=== PATIENT | male | born 1935 | race Caucasian/White ===

== ENCOUNTER → 2017-03-26 | Outpatient (CLI) | payer OTHER, MEDICARE ==
[~2017-03-26] MED LIST: CHOL100027 PO; GABA-112 PO; HYDR12.55 PO; POTA1080 PO; TAMS0.4C38 PO
[2017-03-26 09:37] LABS: BASO % 1.4 %; BASO ABS # 0.07 K/uL (0-0.2); COMPLETE YES; EOS % 5.4 %; IG% 0.2 %; LYMPH % 29.3 %; LYMPH ABS # 1.51 K/uL (1.2-3.4); MEAN CELL VOLUME 87.6 fL (80-100); MEAN CORPUSCULAR HEMOGLOBIN 28.5 pg (25-34); MEAN CORPUSCULAR HGB CONC 32.6 g/dl (32-36); MEAN PLATELET VOLUME 10.3 fL (7.4-10.4); MONO % 8.7 %; PLATELET COUNT 217 K/uL (130-400); RED BLOOD COUNT 4.91 M/uL (4.7-6.1); WHITE BLOOD COUNT 5.15 K/uL (4.8-10.8)
[2017-03-26 10:08] LABS: ALT/SGPT 19 U/L (12-78); BLOOD UREA NITROGEN 24 mg/dl (7-18); CARBON DIOXIDE 31 mmol/L (21-32); CHLORIDE 105 mmol/L (98-107); CHOLESTEROL 151 mg/dl (0-200); GLUCOSE 109 mg/dl (70-99); POTASSIUM 3.5 mmol/L (3.5-5.1); SODIUM 141 mmol/L (136-145); TRIGLYCERIDES 81 mg/dl (0-150); VERY LOW DENSITY LIPOPROT CALC 16 mg/dl
[2017-03-26 10:13] LABS: ALB/GLOB RATIO 0.8 (0.9-2); ALKALINE PHOSPHATASE 65 U/L (45-117); AST/SGOT 20 U/L (15-37); CHOLESTEROL/HDL RATIO 3.4; HDL CHOLESTEROL 44 mg/dl; LDL CHOLESTEROL CALCULATED 91 mg/dl
[2017-03-26 10:14] LABS: CALCIUM 9.3 mg/dl (8.5-10.1)
== END | disposition home or self-care (01) ==
LOC: C.LAB1850 07:33
PROVIDERS: ATTEND Internal Medicine
DX: R42 Dizziness and giddiness (principal); E78.00 Pure hypercholesterolemia, unspecified; E55.9 Vitamin D deficiency, unspecified; E53.8 Deficiency of other specified B group vitamins

== ENCOUNTER → 2017-04-01 | Outpatient (CLI) | payer OTHER, MEDICARE ==
--- NOTE | 2017-04-01 09:51 | DIAGNOSTIC IMAGING REPORT ---
MRI OF THE BRAIN WITHOUT CONTRAST CLINICAL HISTORY: Hypertension. Dizziness. Intracranial hemorrhage. Stroke syndrome. COMPARISON STUDY: Head CT May 18, 2013. TECHNIQUE: Utilizing a 1.5 Marcia magnet and dedicated coil, multiplanar, multiecho imaging of the brain was performed without IV contrast. FINDINGS: There are no areas of restricted diffusion. No acute intracranial hemorrhage, midline shift or mass effect is present. Moderate atrophy is noted. Ventricular system is stable. Basilar cisterns are patent. There are no extra axial collections. No intracranial masses are identified on this unenhanced examination. Numerous subcortical and periventricular white matter T2 hyperintense foci are noted. There are several old lacunar infarcts. Orbits and sinuses are unremarkable. There is no fluid within the mastoid air cells. IMPRESSION: 1. No acute intracranial findings. 2. Moderate atrophy and small vessel disease. Several old lacunar infarcts. Electronically signed by: Reese Arredondo M.D. 04/01/2017 9:50 AM Dictated Date/Time: 04/01/2017 9:45 AM
== END | disposition home or self-care (01) ==
LOC: C.MRI 08:05
PROVIDERS: ATTEND Internal Medicine
DX: I10 Essential (primary) hypertension (principal); I62.9 Nontraumatic intracranial hemorrhage, unspecified; I63.9 Cerebral infarction, unspecified; I95.1 Orthostatic hypotension; R42 Dizziness and giddiness

== ENCOUNTER → 2017-08-25 | Outpatient (CLI) | payer OTHER, MEDICARE | END | disposition home or self-care (01) | LOC: C.LAB1850 08:23 | PROVIDERS: ATTEND Internal Medicine | DX: N40.0 Benign prostatic hyperplasia without lower urinary tract symptoms (principal) ==

== ENCOUNTER → 2017-10-01 | Outpatient (CLI) | payer OTHER, MEDICARE ==
[2017-10-01 13:09] LABS: HEMATOCRIT 40.9 % (42-52); MEAN CELL VOLUME 88.1 fL (80-100); MEAN CORPUSCULAR HEMOGLOBIN 30.4 pg (25-34); MEAN CORPUSCULAR HGB CONC 34.5 g/dl (32-36); MEAN PLATELET VOLUME 9.9 fL (7.4-10.4); PLATELET COUNT 191 K/uL (130-400); RED BLOOD COUNT 4.64 M/uL (4.7-6.1); WHITE BLOOD COUNT 7.05 K/uL (4.8-10.8)
[2017-10-01 13:41] LABS: ALT/SGPT 20 U/L (12-78); AST/SGOT 17 U/L (15-37); BLOOD UREA NITROGEN 17 mg/dl (7-18); BUN/CREATININE RATIO 12.3 (10-20); CALCIUM 9.2 mg/dl (8.5-10.1); CARBON DIOXIDE 32 mmol/L (21-32); CHLORIDE 100 mmol/L (98-107); CREATININE 1.37 mg/dl (0.60-1.40); GLUCOSE 82 mg/dl (70-99); MAGNESIUM 2.1 mg/dl (1.8-2.4); POTASSIUM 3.5 mmol/L (3.5-5.1); SODIUM 139 mmol/L (136-145); URIC ACID 5.8 mg/dl (2.6-7.2)
[2017-10-01 13:44] LABS: ALB/GLOB RATIO 0.8 (0.9-2); ALKALINE PHOSPHATASE 65 U/L (45-117)
[2017-10-01 14:39] LABS: URINE APPEARANCE CLEAR (CLEAR); URINE BILIRUBIN NEG (NEG); URINE COLOR YELLOW; URINE NITRITE NEG (NEG); URINE SPECIFIC GRAVITY 1.019 (1.000-1.030); UROBILINOGEN NEG (NEG)
[2017-10-01 14:40] LABS: MANUAL MICROSCOPIC REQUIRED? NO; REVIEW REQ? NO
[2017-10-01 15:07] LABS: URINE PROTIEN/CREAT RATIO 0.1 (0-0.2); URINE TOTAL PROTEIN 10.7 mg/dl (0-11.9)
== END | disposition home or self-care (01) ==
LOC: C.LAB1850 11:34
PROVIDERS: ATTEND Internal Medicine Nephrology
DX: I10 Essential (primary) hypertension (principal); N18.2 Chronic kidney disease, stage 2 (mild); E55.9 Vitamin D deficiency, unspecified; N20.0 Calculus of kidney

== ENCOUNTER 2018-02-05 12:33 | Emergency (ER) | payer OTHER, MEDICARE ==
[~2018-02-05] VITALS: Ht 170.2 cm; Wt 82.3 kg
[~2018-02-05 12:33] MED LIST changes: -CHOL100027 PO; -HYDR12.55 PO; -POTA1080 PO
[2018-02-05 12:39] VITALS: TEMP 36.7; Ht 170.2 cm; Wt 82.3 kg
[2018-02-05] MEDS ORDERED: FINA5TAB PO (13:43)
[2018-02-05] MEDS ORDERED: SODIUM CHLORIDE 0.9% 1000ML 1,000 ML IV STA (14:02)
[2018-02-05] MEDS ORDERED: SODIUM CHLORIDE 0.9% 1000ML 250 ML IV STA (14:02)
--- NOTE | 2018-02-05 14:41 | DIAGNOSTIC IMAGING REPORT ---
CHEST ONE VIEW PORTABLE HISTORY: Atypical CHEST PAIN COMPARISON: Chest 04/13/2012. FINDINGS: No pneumothorax. No pleural effusions. Prior cholecystectomy. The heart is normal in size. Mild interstitial thickening which is likely chronic. There are also patchy airspace opacities within the right mid to lower lung zone. These are new from the prior study. Left basilar linear densities favor subsegmental atelectasis. IMPRESSION: There are new patchy airspace opacities within the right mid to lower lung zone. This favors a pneumonia. One month chest x-ray follow up is recommended to ensure resolution. Electronically signed by: Ede Ha M.D. 02/05/2018 2:39 PM Dictated Date/Time: 02/05/2018 2:38 PM
[2018-02-05 14:47] LABS: BASO % 1.2 %; BASO ABS # 0.07 K/uL (0-0.2); EOS % 6.5 %; EOS ABS # 0.38 K/uL (0-0.5); HEMATOCRIT 38.2 % (42-52); HEMOGLOBIN 13.3 g/dL (14.0-18.0); IG# 0.03 K/uL (0.00-0.02); LYMPH % 24.5 %; LYMPH ABS # 1.44 K/uL (1.2-3.4); MEAN CELL VOLUME 84.7 fL (80-100); MEAN CORPUSCULAR HEMOGLOBIN 29.5 pg (25-34); MEAN CORPUSCULAR HGB CONC 34.8 g/dl (32-36); MEAN PLATELET VOLUME 9.3 fL (7.4-10.4); MONO % 11.6 %; MONO ABS # 0.68 K/uL (0.11-0.59); NEUT % 55.7 %; NEUT ABS # 3.27 K/uL (1.4-6.5); PLATELET COUNT 183 K/uL (130-400); RED CELL DISTRIBUTION WIDTH CV 15.1 % (11.5-14.5); RED CELL DISTRIBUTION WIDTH SD 46.3 fL (36.4-46.3); WHITE BLOOD COUNT 5.87 K/uL (4.8-10.8)
[2018-02-05 14:50] LABS: PTT PATIENT 28.5 SECONDS (21.0-31.0)
--- NOTE | 2018-02-05 14:51 | EMERGENCY ROOM VISIT NOTE ---
History Report prepared by Karen: Shantal Quach Under the Supervision of: Dr. Pascual Conrad M.D. 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 He is accompanied by his who notes that they decided to come in today because he has been more tired than usual. The patient notes he is extremely tired, shaky, and dizzy. He denies any fevers, chest pain, SOB, abdominal pain, urinary symptoms, rashes, or taking any blood thinners. His states that he has " not been feeling right" lately. She states he had a brain bleed in 2009 and since then, his hearing has gotten worse. 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 Review of Systems See HPI for pertinent positives & negatives. A total of 10 systems reviewed and were otherwise negative. Past Medical & Surgical Medical Problems: (1) Acute calculous cholecystitis (2) History of stroke Old medical records were reviewed. Nurse's notes were reviewed and I agree with. Family History FHx: heart disease Hypertension Social History Smoking Status: Never Smoker Drug Use: cocaine Marital Status: Housing Status: lives with family Occupation Status: retired Current/Historical Medications Scheduled Amoxicillin & Pot Clavulanate (Augmentin 875-125 mg), 875 MG PO BID Cholecalciferol (Vitamin D 1000 Unit), 1,000 INTER.UNIT PO DAILY Finasteride (Proscar), 5 MG PO DAILY Gabapentin (Neurontin), 100 MG PO HS Hydrochlorothiazide (Hydrochlorothiazide), 12.5 MG PO DAILY Potassium Citrate (Alkalinizer (Potassium Citrate ER), 1,080 MG PO TID Tamsulosin Hcl (Flomax), 0.4 MG PO DAILY Allergies Coded Allergies: No Known Allergies (Unverified , 08/22/16) Physical Exam Vital Signs Date Time Temp Pulse Resp B/P (MAP) Pulse Ox O2 Delivery O2 Flow Rate FiO2 02/05/18 16:31 71 18 166/86 92 Room Air 02/05/18 15:45 70 18 150/80 90 Room Air 02/05/18 14:17 73 20 129/80 94 Room Air 02/05/18 14:08 73 02/05/18 12:39 36.7 84 18 142/84 95 Room Air Physical Exam General: Non-ill appearing older male in no acute distress. HEENT: Normal cephalic atraumatic. Pupils are equal round and reactive to light. Extraocular movements are intact. Oropharynx is pink with moist mucous membranes. No swelling of the mouth lips or tongue. Neck: Supple with a midline trachea. No meningeal signs or stiffness, no JVD or bruits. No Stridor. Chest: Clear to auscultation bilaterally. No wheezes or rhonchi. No increased work of breathing. Heart: regular rate and rhythm. Abdomen: Soft nontender, nondistended without rebound guarding or rigidity. Extremities: No cyanosis clubbing or edema. No calf tenderness or assymetry Spine/Back. Non tender to palpation. No CVA tenderness Skin: Good turgor without rashes. Neurologic exam: Cranial nerves two through 12 are intact. Motor and sensation are intact and symmetrical throughout. Medical Decision & Procedures ER Provider Diagnostic Interpretation: Radiology results as stated below per my review and radiologist interpretation: HEAD CT NONCONTRAST CT DOSE: 999.99 mGy.cm HISTORY: headache, dizzy, hx of ich TECHNIQUE: Multiaxial CT images of the head were performed without the use of intravenous contrast. Automated exposure control was utilized for this study. A dose lowering technique was utilized adhering to the principles of ALARA. Comparison: Head CT 05/18/2013. Findings: The paranasal sinuses and mastoid air cells are clear. The calvarium and skull base are intact. There is no mass, hematoma, midline shift, acute infarct. White matter hypodensity is nonspecific but suggestive of microvascular ischemic change. The ventricles and sulci demonstrate mild age-related involutional changes. Impression: No acute intracranial abnormality. Atrophy and microvascular ischemic changes. Electronically signed by: Ede Ha M.D. 02/05/2018 3:00 PM Dictated Date/Time: 02/05/2018 2:48 PM CHEST ONE VIEW PORTABLE HISTORY: Atypical CHEST PAIN COMPARISON: Chest 04/13/2012. FINDINGS: No pneumothorax. No pleural effusions. Prior cholecystectomy. The heart is normal in size. Mild interstitial thickening which is likely chronic. There are also patchy airspace opacities within the right mid to lower lung zone. These are new from the prior study. Left basilar linear densities favor subsegmental atelectasis. IMPRESSION: There are new patchy airspace opacities within the right mid to lower lung zone. This favors a pneumonia. One month chest x-ray follow up is recommended to ensure resolution. Electronically signed by: Ede Ha M.D. 02/05/2018 2:39 PM Dictated Date/Time: 02/05/2018 2:[address] SCAN OF THE CERVICAL SPINE CLINICAL HISTORY: Neck pain. COMPARISON STUDY: No priors. TECHNIQUE: CT scan of the cervical spine is performed from the skull base to the upper thoracic spine. Images are reviewed in the axial, sagittal, and coronal planes. IV contrast was not administered for this examination. A dose lowering technique was utilized adhering to the principles of ALARA. FINDINGS: Skeletal structures: The skeletal structures are heterogeneously osteopenic. There is no evidence of fracture or subluxation involving the cervical spine. Vertebral body height and alignment are maintained. Anterior osteophytes are seen throughout. The odontoid process and lateral masses are intact. The atlantoaxial articulation is preserved noting productive degenerative change. The spinous processes appear intact. There is moderate multilevel cervical spondylosis. Uncovertebral and facet arthropathy contribute to neural foraminal narrowing at several levels. Intervertebral discs: There is moderate to advanced disc space narrowing with endplate sclerosis is seen at C6-C7. Moderate disc space narrowing is seen at C5-C6. The remaining disc spaces appear maintained. Central canal: Posterior discussed by complex is at C5-C6 and C6-C7 may contribute to acquired compromise of the central canal. Soft tissues: The prevertebral and paraspinous soft tissues are within normal limits. Low-attenuation thyroid nodules measure up to 8 mm. Calvarium: The visualized calvarium at the skull base appears intact. Brain parenchyma: Partially visualized brain parenchyma the skull base is within normal limits noting age-related involutional change. Sinuses and mastoids: The visualized paranasal sinuses are clear. The mastoid air cells are well pneumatized. Lung apices: Clear as visualized. IMPRESSION: 1. There is no evidence of fracture or subluxation involving the cervical spine. 2. Osteopenia and spondylotic change as above. Electronically signed by: Zaid Nuno M.D. 02/05/2018 2:52 PM Dictated Date/Time: 02/05/2018 2:48 PM (CHEST) THORAX WITHOUT CLINICAL HISTORY: Abnormal chest x-ray COMPARISON STUDY: Conventional radiographic study dated 02/05/2018 , CT scan of the abdomen pelvis dated 08/23/2016 CT DOSE: 227.73 mGy.cm TECHNIQUE: CT of the thorax was performed from the thoracic inlet to the lung bases. Images are reviewed in the axial, sagittal, and coronal planes. IV contrast was not administered for this examination. A dose lowering technique was utilized adhering to the principles of ALARA. FINDINGS: Thyroid: Imaged portions of the thyroid gland are normal in appearance. Thoracic aorta: The thoracic aorta is normal in course and caliber, noting standard 3 vessel arch anatomy. Heart: The heart is normal in size and configuration, without pericardial effusion. Lungs and pleural spaces: There are no pleural effusions. There is respiratory motion artifact. There is subpleural reticulation suggesting underlying interstitial lung disease. There is no lobar consolidation. There are scattered groundglass and nodular airspace opacities within the right lung, likely are presenting a superimposed infection. A follow-up examination in one month is recommended subsequent to antibiotic therapy. Mediastinum: There are mildly enlarged mediastinal lymph nodes measuring up to 12 mm in diameter, possibly reactive. Jessica: There is no evidence of pathologic hilar adenopathy given the limitations of a noncontrast study Axilla: There is no evidence of pathologic axillary lymphadenopathy Upper abdomen: There are stable hepatic hypodensities likely representing cysts. The gallbladder is surgically absent. Skeletal structures: There are no lytic or blastic osseous lesions. IMPRESSION: 1. Evidence for underlying interstitial lung disease with subpleural reticulation 2. Scattered groundglass and nodular right lung airspace opacities statistically representing a superimposed infectious/inflammatory process. Repeat imaging in one month subsequent to therapy is recommended 3. Mild mediastinal adenopathy possibly reactive Electronically signed by: Bijan Cummings M.D. 02/05/2018 4:03 PM Dictated Date/Time: 02/05/2018 3:58 PM Laboratory Results 02/05/18 14:15 Red Blood Count 4.51, Mean Corpuscular Volume 84.7, Mean Corpuscular Hemoglobin 29.5, Mean Corpuscular Hemoglobin Concent 34.8, Mean Platelet Volume 9.3, Neutrophils (%) (Auto) 55.7, Lymphocytes (%) (Auto) 24.5, Monocytes (%) (Auto) 11.6, Eosinophils (%) (Auto) 6.5, Basophils (%) (Auto) 1.2, Neutrophils # (Auto ) 3.27, Lymphocytes # (Auto) 1.44, Monocytes # (Auto) 0.68, Eosinophils # (Auto ) 0.38, Basophils # (Auto) 0.07 02/05/18 14:15 Test 02/05/18 14:15 02/05/18 14:25 02/05/18 15:45 White Blood Count 5.87 K/uL (4.8-10.8) Red Blood Count 4.51 M/uL (4.7-6.1) Hemoglobin 13.3 g/dL (14.0-18.0) Hematocrit 38.2 % (42-52) Mean Corpuscular Volume 84.7 fL (80-100) Mean Corpuscular Hemoglobin 29.5 pg (25-34) Mean Corpuscular Hemoglobin Concent 34.8 g/dl (32-36) Platelet Count 183 K/uL (130-400) Mean Platelet Volume 9.3 fL (7.4-10.4) Neutrophils (%) (Auto) 55.7 % Lymphocytes (%) (Auto) 24.5 % Monocytes (%) (Auto) 11.6 % Eosinophils (%) (Auto) 6.5 % Basophils (%) (Auto) 1.2 % Neutrophils # (Auto) 3.27 K/uL (1.4-6.5) Lymphocytes # (Auto) 1.44 K/uL (1.2-3.4) Monocytes # (Auto) 0.68 K/uL (0.11-0.59) Eosinophils # (Auto) 0.38 K/uL (0-0.5) Basophils # (Auto) 0.07 K/uL (0-0.2) RDW Standard Deviation 46.3 fL (36.4-46.3) RDW Coefficient of Variation 15.1 % (11.5-14.5) Immature Granulocyte % (Auto) 0.5 % Immature Granulocyte # (Auto) 0.03 K/uL (0.00-0.02) Prothrombin Time 10.5 SECONDS (9.0-12.0) Prothromb Time International Ratio 1.0 (0.9-1.1) Activated Partial Thromboplast Time 28.5 SECONDS (21.0-31.0) Partial Thromboplastin Ratio 1.1 Anion Gap 3.0 mmol/L (3-11) Est Creatinine Clear Calc Drug Dose 34.6 ml/min Estimated GFR () 42.9 Estimated GFR (Non- 37.0 BUN/Creatinine Ratio 16.2 (10-20) Calcium Level 9.0 mg/dl (8.5-10.1) Total Bilirubin 0.6 mg/dl (0.2-1) Direct Bilirubin 0.1 mg/dl (0-0.2) Aspartate Amino Transf (AST/SGOT) 19 U/L (15-37) Alanine Aminotransferase (ALT/SGPT) 21 U/L (12-78) Alkaline Phosphatase 65 U/L (45-117) Total Protein 7.6 gm/dl (6.4-8.2) Albumin 2.9 gm/dl (3.4-5.0) Lipase 151 U/L (73-393) Thyroid Stimulating Hormone (TSH) 2.130 uIu/ml (0.300-4.500) Bedside Troponin I < 0.030 ng/ml (0-0.045) Urine Color YELLOW Urine Appearance CLEAR (CLEAR) Urine pH 6.5 (4.5-7.5) Urine Specific Burwell 1.022 (1.000-1.030) Urine Protein NEG (NEG) Urine Glucose (UA) NEG (NEG) Urine Ketones NEG (NEG) Urine Occult Blood NEG (NEG) Urine Nitrite NEG (NEG) Urine Bilirubin NEG (NEG) Urine Urobilinogen NEG (NEG) Urine Leukocyte Esterase NEG (NEG) Laboratory studies as stated above per my review. Medications Administered Medications (Trade) Dose Ordered Sig/Mike Route Start Time Stop Time Status Last Admin Dose Admin Sodium Chloride 250 ml @ 999 mls/hr Q16M STAT IV 02/05/18 14:02 02/05/18 14:17 DC 02/05/18 14:19 999 MLS/HR Sodium Chloride 1,000 ml @ 100 mls/hr Q10H STAT IV 02/05/18 14:02 02/05/18 16:56 DC 02/05/18 14:19 100 MLS/HR Sodium Chloride 500 ml @ 999 mls/hr Q31M STAT IV 02/05/18 15:30 02/05/18 16:01 DC 02/05/18 15:30 999 MLS/HR Amoxicillin/ Clavulanate Potassium (Augmentin 875MG Home Pack) 1 homepack UD ONCE PO 02/05/18 16:30 02/05/18 16:31 DC 02/05/18 16:30 1 HOMEPACK ECG Per My Interpretation Indication: weakness Rate (beats per minute): 65 Rhythm: normal sinus Findings: no acute ischemic change, no ectopy Comparison ECG Date: August 23, 2016 Change: no significant change ED Course 1359: Past medical records reviewed. The patient was evaluated in room C7, and a complete history and physical examination were performed. 1402: Sodium Chloride 1000 ml @ 100 mls/hr IV Sodium Chloride 250 ml @ 999 mls/hr IV 1453: I checked on the patient at this time. He is resting comfortably and talking to registration. 1530: I checked on the patient at this time. He seems comfortable and I ordered a CT of his chest. 1530: Sodium Chloride 500 ml @ 999 mls/hr IV 1616: Upon reevaluation, the patient is content. I discussed the results and treatment plan with him. He verbalized agreement of the treatment plan. The patient was discharged home. Medical Decision Differential diagnosis: Etiologies such as intercranial hemorrhage, CVA, hypertension, cardiac disease, anemia, electrolyte or metabolic abnormality, infection as well as others were entertained. This patient comes in as described above appears placed in room C7. He is here for treatment and evaluation of dizziness headaches and generalized not feeling well. This been going on for several several days to weeks. He has a normal neurologic exam. His is concerned that he does have a history of spontaneous intracranial hemorrhage. On exam, he appears well and currently denies any significant headache and has no neck pain. IV access established. EKG was obtained as well as multiple blood testing and CAT scan of his head and neck. EKG was unremarkable and does not suggest cardiac disease his cardiac biomarkers are not elevated. CAT scan of his head is unremarkable. His blood pressures not significantly elevated. His urinalysis does not suggest a UTI. His BUN Creatinine are mildly elevated and he could have some mild dehydration. On chest x-ray, there was a possible infiltrate in the right base. he has had 2 rounds of antibiotics recently and seems actually doing better. I did a CAT scan and it also shows similar findings which could be infiltrate and in light of this, I will put on Augmentin this is different coverage than the Levaquin and the azithromycin that he has been on. I encouraged him to follow-up with his doctor on Thursday for recheck and told the patient and his that he needs follow-up imaging to ensure that this resolves and is not something besides pneumonia. The patient and his were happy the plan and he strongly desires to go home and will be discharged to home. He has no evidence of hypoxemia or sepsis at this point. Medication Reconcilliation Current Medication List: was personally reviewed by me Blood Pressure Screening Patient's blood pressure: Normal blood pressure Blood pressure disposition: Did not require urgent referral Impression Primary Impression: Weakness Additional Impressions: Pneumonia Dehydration Scribe Attestation The scribe's documentation has been prepared under my direction and personally reviewed by me in its entirety. I confirm that the note above accurately reflects all work, treatment, procedures, and medical decision making performed by me. Departure Information Dispostion Home / Self-Care Prescriptions Amoxicillin & Pot Clavulanate (Augmentin 875-125 mg) 1 Tab Tab 875 MG PO BID for 10 Days, #20 TAB Prov: Pascual Conrad M.D. 02/05/18 Referrals RV. Jefferson MD (PCP) Forms HOME CARE DOCUMENTATION FORM, IMPORTANT VISIT INFORMATION, WORK / SCHOOL INSTRUCTIONS Patient Instructions My [facility] Additional Instructions Rest Drink plenty of fluids Use Augmentin 875 mg twice a day for 10 daysantibiotic Return over the weekend if: Worsening of symptoms, chest pain, weakness or dizziness, any new problems or concerns Follow-up with your doctor Thursday for recheck. You have pneumonia or other process going on in the right lung. he will need follow-up imaging to ensure this resolves and is nothing else. Problem Qualifiers
--- NOTE | 2018-02-05 14:54 | DIAGNOSTIC IMAGING REPORT ---
CT SCAN OF THE CERVICAL SPINE CLINICAL HISTORY: Neck pain. COMPARISON STUDY: No priors. TECHNIQUE: CT scan of the cervical spine is performed from the skull base to the upper thoracic spine. Images are reviewed in the axial, sagittal, and coronal planes. IV contrast was not administered for this examination. A dose lowering technique was utilized adhering to the principles of ALARA. FINDINGS: Skeletal structures: The skeletal structures are heterogeneously osteopenic. There is no evidence of fracture or subluxation involving the cervical spine. Vertebral body height and alignment are maintained. Anterior osteophytes are seen throughout. The odontoid process and lateral masses are intact. The atlantoaxial articulation is preserved noting productive degenerative change. The spinous processes appear intact. There is moderate multilevel cervical spondylosis. Uncovertebral and facet arthropathy contribute to neural foraminal narrowing at several levels. Intervertebral discs: There is moderate to advanced disc space narrowing with endplate sclerosis is seen at C6-C7. Moderate disc space narrowing is seen at C5-C6. The remaining disc spaces appear maintained. Central canal: Posterior discussed by complex is at C5-C6 and C6-C7 may contribute to acquired compromise of the central canal. Soft tissues: The prevertebral and paraspinous soft tissues are within normal limits. Low-attenuation thyroid nodules measure up to 8 mm. Calvarium: The visualized calvarium at the skull base appears intact. Brain parenchyma: Partially visualized brain parenchyma the skull base is within normal limits noting age-related involutional change. Sinuses and mastoids: The visualized paranasal sinuses are clear. The mastoid air cells are well pneumatized. Lung apices: Clear as visualized. IMPRESSION: 1. There is no evidence of fracture or subluxation involving the cervical spine. 2. Osteopenia and spondylotic change as above. Electronically signed by: Zaid Nuno M.D. 02/05/2018 2:52 PM Dictated Date/Time: 02/05/2018 2:48 PM
[2018-02-05 14:55] LABS: ALBUMIN 2.9 gm/dl (3.4-5.0); CREATININE 1.69 mg/dl (0.60-1.40); POTASSIUM 3.4 mmol/L (3.5-5.1)
--- NOTE | 2018-02-05 15:01 | DIAGNOSTIC IMAGING REPORT ---
HEAD CT NONCONTRAST CT DOSE: 999.99 mGy.cm HISTORY: headache, dizzy, hx of ich TECHNIQUE: Multiaxial CT images of the head were performed without the use of intravenous contrast. Automated exposure control was utilized for this study. A dose lowering technique was utilized adhering to the principles of ALARA. Comparison: Head CT 05/18/2013. Findings: The paranasal sinuses and mastoid air cells are clear. The calvarium and skull base are intact. There is no mass, hematoma, midline shift, acute infarct. White matter hypodensity is nonspecific but suggestive of microvascular ischemic change. The ventricles and sulci demonstrate mild age-related involutional changes. Impression: No acute intracranial abnormality. Atrophy and microvascular ischemic changes. Electronically signed by: Ede Ha M.D. 02/05/2018 3:00 PM Dictated Date/Time: 02/05/2018 2:48 PM
[2018-02-05 15:06] LABS: TOTAL PROTEIN 7.6 gm/dl (6.4-8.2)
[2018-02-05] MEDS ORDERED: SODIUM CHLORIDE 0.9% 500ML 500 ML IV STA (15:30)
[2018-02-05] MEDS ORDERED: OPTIRAY 320 IV PRN (15:45)
--- NOTE | 2018-02-05 16:05 | DIAGNOSTIC IMAGING REPORT ---
(CHEST) THORAX WITHOUT CLINICAL HISTORY: Abnormal chest x-ray COMPARISON STUDY: Conventional radiographic study dated 02/05/2018 , CT scan of the abdomen pelvis dated 08/23/2016 CT DOSE: 227.73 mGy.cm TECHNIQUE: CT of the thorax was performed from the thoracic inlet to the lung bases. Images are reviewed in the axial, sagittal, and coronal planes. IV contrast was not administered for this examination. A dose lowering technique was utilized adhering to the principles of ALARA. FINDINGS: Thyroid: Imaged portions of the thyroid gland are normal in appearance. Thoracic aorta: The thoracic aorta is normal in course and caliber, noting standard 3 vessel arch anatomy. Heart: The heart is normal in size and configuration, without pericardial effusion. Lungs and pleural spaces: There are no pleural effusions. There is respiratory motion artifact. There is subpleural reticulation suggesting underlying interstitial lung disease. There is no lobar consolidation. There are scattered groundglass and nodular airspace opacities within the right lung, likely are presenting a superimposed infection. A follow-up examination in one month is recommended subsequent to antibiotic therapy. Mediastinum: There are mildly enlarged mediastinal lymph nodes measuring up to 12 mm in diameter, possibly reactive. Jessica: There is no evidence of pathologic hilar adenopathy given the limitations of a noncontrast study Axilla: There is no evidence of pathologic axillary lymphadenopathy Upper abdomen: There are stable hepatic hypodensities likely representing cysts. The gallbladder is surgically absent. Skeletal structures: There are no lytic or blastic osseous lesions. IMPRESSION: 1. Evidence for underlying interstitial lung disease with subpleural reticulation 2. Scattered groundglass and nodular right lung airspace opacities statistically representing a superimposed infectious/inflammatory process. Repeat imaging in one month subsequent to therapy is recommended 3. Mild mediastinal adenopathy possibly reactive Electronically signed by: Bijan Cummings M.D. 02/05/2018 4:03 PM Dictated Date/Time: 02/05/2018 3:58 PM
[2018-02-05] MEDS ORDERED: AMOX875T PO (16:22)
[2018-02-05] MEDS ORDERED: AMOXICIL/CLAVU 875MG HOME PACK PO ONE (16:30)
[2018-02-05 16:31] VITALS: BP 166/86; PULSE 71; O2SAT 92
[2018-02-05] MEDS ORDERED: POTA1080 PO (23:45)
[2018-02-05] MEDS ORDERED: HYDR12.55 PO (23:45)
[2018-02-05] MEDS ORDERED: CHOL100027 PO (23:45)
== END 2018-02-05 16:41 | disposition home or self-care (01) ==
LOC: C.EDB 12:35 → C.EDC 16:41
DX: R53.1 Weakness (principal); J18.9 Pneumonia, unspecified organism; E86.0 Dehydration; R79.89 Other specified abnormal findings of blood chemistry; R51 Headache; M54.2 Cervicalgia; R53.83 Other fatigue; R42 Dizziness and giddiness; F14.99 Cocaine use, unspecified with unspecified cocaine-induced disorder; Z86.73 Personal history of transient ischemic attack (TIA), and cerebral infarction without residual deficits; Z82.49 Family history of ischemic heart disease and other diseases of the circulatory system

== ENCOUNTER → 2018-02-15 | Outpatient (CLI) | payer OTHER, MEDICARE ==
[~2018-02-15] MED LIST changes: +AMOX875T PO; +CHOL100027 PO; +FINA5TAB PO; +HYDR12.55 PO; +POTA1080 PO
[2018-02-15 13:26] LABS: BASO % 0.8 %; BASO ABS # 0.05 K/uL (0-0.2); EOS % 7.7 %; EOS ABS # 0.46 K/uL (0-0.5); HEMATOCRIT 38.8 % (42-52); HEMOGLOBIN 13.2 g/dL (14.0-18.0); IG# 0.02 K/uL (0.00-0.02); LYMPH ABS # 1.49 K/uL (1.2-3.4); MEAN CELL VOLUME 85.7 fL (80-100); MEAN CORPUSCULAR HEMOGLOBIN 29.1 pg (25-34); MEAN PLATELET VOLUME 9.2 fL (7.4-10.4); MONO % 15.1 %; NEUT % 51.1 %; NEUT ABS # 3.03 K/uL (1.4-6.5); PLATELET COUNT 271 K/uL (130-400); RED CELL DISTRIBUTION WIDTH SD 46.9 fL (36.4-46.3); WHITE BLOOD COUNT 5.95 K/uL (4.8-10.8)
[2018-02-15 14:08] LABS: ALBUMIN 3.2 gm/dl (3.4-5.0); ALKALINE PHOSPHATASE 77 U/L (45-117); ALT/SGPT 21 U/L (12-78); AST/SGOT 22 U/L (15-37); BLOOD UREA NITROGEN 19 mg/dl (7-18); CALCIUM 9.3 mg/dl (8.5-10.1); CARBON DIOXIDE 33 mmol/L (21-32); CREATININE 1.48 mg/dl (0.60-1.40); GLUCOSE 96 mg/dl (70-99); POTASSIUM 3.3 mmol/L (3.5-5.1); SODIUM 140 mmol/L (136-145)
== END | disposition home or self-care (01) ==
LOC: C.LAB1850 12:26
PROVIDERS: ATTEND Internal Medicine
DX: R78.89 Finding of other specified substances, not normally found in blood (principal); E53.8 Deficiency of other specified B group vitamins; E55.9 Vitamin D deficiency, unspecified

== ENCOUNTER → 2018-02-17 | Outpatient (CLI) | payer OTHER, MEDICARE ==
[~2018-02-17] MED LIST changes: -AMOX875T PO
[2018-02-17 13:14] LABS: BASO ABS # 0.06 K/uL (0-0.2); EOS % 6.5 %; EOS ABS # 0.41 K/uL (0-0.5); HEMATOCRIT 41.3 % (42-52); HEMOGLOBIN 14.2 g/dL (14.0-18.0); IG# 0.03 K/uL (0.00-0.02); LYMPH ABS # 1.95 K/uL (1.2-3.4); MEAN CELL VOLUME 85.5 fL (80-100); MEAN CORPUSCULAR HEMOGLOBIN 29.4 pg (25-34); MEAN CORPUSCULAR HGB CONC 34.4 g/dl (32-36); MEAN PLATELET VOLUME 9.6 fL (7.4-10.4); MONO % 11.9 %; MONO ABS # 0.75 K/uL (0.11-0.59); NEUT % 49.1 %; NEUT ABS # 3.09 K/uL (1.4-6.5); PLATELET COUNT 304 K/uL (130-400); RED CELL DISTRIBUTION WIDTH CV 14.8 % (11.5-14.5); WHITE BLOOD COUNT 6.29 K/uL (4.8-10.8)
[2018-02-17 13:54] LABS: ALBUMIN 3.3 gm/dl (3.4-5.0); ALKALINE PHOSPHATASE 80 U/L (45-117); ALT/SGPT 22 U/L (12-78); AST/SGOT 22 U/L (15-37); BLOOD UREA NITROGEN 17 mg/dl (7-18); CALCIUM 9.2 mg/dl (8.5-10.1); CARBON DIOXIDE 31 mmol/L (21-32); CREATININE 1.42 mg/dl (0.60-1.40); GLUCOSE 75 mg/dl (70-99); POTASSIUM 3.4 mmol/L (3.5-5.1); SODIUM 137 mmol/L (136-145)
[2018-02-17 13:56] LABS: TOTAL PROTEIN 8.5 gm/dl (6.4-8.2)
[2018-02-19 14:49] LABS: QUANTIF MITOGEN-NIL 9.94 IU/ML; QUANTIFERON NEGATIVE (NEGATIVE); QUANTIFERON NIL 0.06 IU/ML
== END | disposition home or self-care (01) ==
LOC: C.LAB1850 11:33
PROVIDERS: ATTEND Internal Medicine Pulmonary Disease
DX: R06.02 Shortness of breath (principal); R05 Cough

== ENCOUNTER → 2018-02-18 | Outpatient (CLI) | payer OTHER, MEDICARE ==
--- NOTE | 2018-02-18 11:00 | DIAGNOSTIC IMAGING REPORT ---
BILIARY ULTRASOUND CLINICAL HISTORY: R10.811 right upper quadrant abdominal pain COMPARISON STUDY: 08/23/2016 FINDINGS: No pancreatic masses are visualized. There is no right-sided hydronephrosis. The gallbladder is surgically absent. There is no ductal dilatation. The common bile duct measures 6 mm. There are few hypodense lesions of the left lobe of the liver which are felt to represent cysts. IMPRESSION: 1. Small left lobe hepatic cysts 2. Surgically absent gallbladder 3. No evidence of ductal dilatation Electronically signed by: Bijan Cummings M.D. 02/18/2018 10:59 AM Dictated Date/Time: 02/18/2018 10:57 AM
== END | disposition home or self-care (01) ==
LOC: C.ULTR 10:04
PROVIDERS: ATTEND Internal Medicine
DX: R10.811 Right upper quadrant abdominal tenderness (principal); K76.89 Other specified diseases of liver; Z90.49 Acquired absence of other specified parts of digestive tract

== ENCOUNTER → 2018-02-25 | Outpatient (CLI) | payer OTHER, MEDICARE ==
[~2018-02-25] MED LIST changes: +OPTIRAY 320 IV PRN
--- NOTE | 2018-02-25 13:06 | DIAGNOSTIC IMAGING REPORT ---
CT SCAN OF THE ABDOMEN AND PELVIS WITH IV CONTRAST CLINICAL HISTORY: Decreased appetite. COMPARISON STUDY: Abdominal CT dated 08/23/2016. TECHNIQUE: Following the IV administration of and 3 cc of Optiray 320, CT scan of the abdomen and pelvis is performed from the lung bases to the proximal femora. Images are reviewed in the axial, sagittal, and coronal planes. IV contrast was administered without complication. A dose lowering technique was utilized adhering to the principles of ALARA. CT DOSE: 557.22 mGy.cm FINDINGS: Lung bases: The heart is top normal in size and without pericardial effusion. Chronic interstitial changes are present at both lung bases. No airspace consolidation or pleural effusion is seen. There is a tiny hiatal hernia. Liver: The contrast-enhanced liver is normal in size, contour, and attenuation. There is no intrahepatic biliary ductal dilatation. The hepatic veins and portal veins are patent. Small hepatic cysts measure up to 2.2 cm. Additional subcentimeter hypodensities also likely represent cysts but are too small for definitive characterization. Gallbladder: Surgically absent noting clips in the gallbladder fossa. Spleen: Normal in size and attenuation. Pancreas: Atrophic and grossly unremarkable. Adrenal glands: Unremarkable. Kidneys: The contrast enhanced kidneys are atrophic and without hydronephrosis. The kidneys enhance symmetrically. Small renal cysts measure up to 1.8 cm. Additional subcentimeter cortical hypodensities also likely represent cysts but are too small for definitive characterization. Small bilateral renal calculi are identified. The largest is seen on the left and measures up to 6 mm. Abdominal vasculature: The abdominal aorta is normal in course and caliber noting moderate to advanced atherosclerotic calcification. Bowel: A fat-containing umbilical hernia contains a small segment of the small bowel. No bowel obstruction is identified. The appendix is well-visualized and normal. Peritoneum: There is no intraperitoneal free air or abdominal ascites. There is a fat and bowel containing umbilical hernia. Lymphadenopathy: None. Pelvic viscera: The prostate gland is enlarged and heterogeneous measuring 5.8 cm in transverse diameter. The bladder wall is thickened and trabeculated suggesting chronic outlet obstruction. A small bladder diverticulum is seen at the dome on the right. Skeletal structures: The skeletal structures are osteopenic. Mild lumbosacral spondylosis is observed. No lytic or blastic lesions are seen. IMPRESSION: 1. There are no acute infectious or inflammatory findings in the abdomen or pelvis. 2. There are bilateral nonobstructing renal calculi. 3. An umbilical hernia contains a nonobstructed segment of small bowel. 4. Prostatomegaly with evidence of chronic bladder outlet obstruction. 5. Chronic interstitial lung disease is present at the lung bases. 6. Additional findings as above. Electronically signed by: Zaid Nuno M.D. 02/25/2018 1:05 PM Dictated Date/Time: 02/25/2018 12:57 PM
== END | disposition home or self-care (01) ==
LOC: C.CTS 12:21
PROVIDERS: ATTEND Physician Assistant
DX: R63.0 Anorexia (principal); R93.8 Abnormal findings on diagnostic imaging of other specified body structures; N20.0 Calculus of kidney; K42.9 Umbilical hernia without obstruction or gangrene; N40.0 Benign prostatic hyperplasia without lower urinary tract symptoms; J84.9 Interstitial pulmonary disease, unspecified

== ENCOUNTER 2019-09-16 08:25 | Inpatient (IN) ==
[2019-09-16 08:57] LABS: Basophils # (auto) 0.03 K/uL (0-0.2); Basophils % (auto) 0.5 %; Eosinophils # (auto) 0.32 K/uL (0-0.5); Eosinophils % (auto) 5.2 %; Hematocrit (blood only) 40.4 % (42-52); Hemoglobin 13.4 g/dL (14.0-18.0); Immature Granulocytes # (auto) 0.01 K/uL (0.00-0.02); Immature Granulocytes % (auto) 0.2 %; Lymphocytes # (auto) 1.41 K/uL (1.2-3.4); Lymphocytes % (auto) 23.1 %; Mean Corpuscular Hemoglobin 28.9 pg (25-34); Mean Corpuscular Hgb Conc 33.2 g/dL (32-36); Mean Corpuscular Volume 87.1 fL (80-100); Mean Platelet Volume 10.2 fL (7.4-10.4); Monocytes % (auto) 8.2 %; Neutrophils # (auto) 3.84 K/uL (1.4-6.5); Neutrophils % (auto) 62.8 %; Platelet Count 158 K/uL (130-400); RDW Coefficient of Variation 14.9 % (11.5-14.5); RDW Standard Deviation 47.9 fL (36.4-46.3); Red Blood Count 4.64 M/uL (4.7-6.1); White Blood Count 6.11 K/uL (4.8-10.8)
--- NOTE | 2019-09-16 09:06 | Emergency Department Note ---
History of Present Illness General Chief complaint: Chest Pain Stated complaint: CHEST PAIN Time Seen by Provider: 09/16/19 08:37 History of Present Illness Maximum Pain Intensity: 7 84-year-old male who presents emergency department with complaint of severe stabbing pain in the left lateral chest. The patient reports that he has occasionally had this type of pain in the past. He reports that he will occasionally get pain in his right chest and shoulder when trying to reach overhead to fasten his seatbelt. He reports that this pain awakened him at 4 AM this morning. He did not notice any worsening discomfort with position or movement of the shoulder. The pain is slightly worsened when he takes a deep breath. He denied any chest pressure, nausea, diaphoresis, headache, left shoulder pain or left upper extremity pain/numbness. The patient denies history of heart disease. 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 Adam. The reports that he does have to wear oxygen with ambulation. She does check his O2 saturation while doing so, and reports that he does occasionally drop into the mid 80s. The family does not check his O2 saturation when resting, so the patient does not know what his baseline values are. The patient denies any recent upper respiratory infection. He currently denies any shortness of breath. At its worst, the patient rates his discomfort a 7 out of 10. The family reports that the patient has a strong family history of coronary artery disease with his sister and father dying suddenly of heart attacks, his sister in her 60s, and father in his 80s. The patient does have a history of elevated cholesterol, hypertension and prior episode of CVA. The patient denies prior history of tobacco use. The reports that the patient did have a stre ss test last month that was normal. Patient has also had a prior history of hemorrhagic stroke in 2009, and has had 3 subsequent ischemic strokes. Home Medications Home Medications Medication Instructions Recorded Confirmed Type cholecalciferol (vitamin D3) 1,000 unit PO QAM 08/18/18 09/16/19 History [Vitamin D3] finasteride [Proscar] 5 mg PO QAM 08/18/18 09/16/19 History tamsulosin [Flomax] 0.4 mg PO QAM 08/18/18 09/16/19 History aspirin [Ecotrin Low Strength] 81 mg PO QAM 05/31/19 11/15/19 History Oxygen Home #1 ea 05/22/19 09/10/19 History potassium citrate 10 mEq (1,080 10 meq PO TID #270 tab 06/08/19 09/16/19 Rx mg) tablet,extended release hydrochlorothiazide 12.5 mg capsule 12.5 mg PO QAM cap 07/24/19 09/16/19 History omeprazole 20 mg capsule,delayed 20 mg PO QAM 07/24/19 09/16/19 History release ipratropium-albuterol 3 ml INHALATION BID PRN 07/25/19 09/16/19 History ibuprofen 200 mg PO QID PRN 09/16/19 09/16/19 History Allergies Allergy/AdvReac Type Severity Reaction Status Date / Time fluticasone [From Flonase] Allergy Unknown Unknown Verified 09/16/19 09:50 Past Med/Surg History Medical History Acute calculous cholecystitis BPH (benign prostatic hyperplasia) Chronic bronchitis Chronic cough CKD (chronic kidney disease) stage 3, GFR 30-59 ml/min Colitis Dysphagia ON OCC PER SPOUSE Gait instability (Acute) Hypercholesteremia (Acute) 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 On home oxygen therapy 2L/MIN NC HS Restrictive lung disease (Acute) Stroke HX X 3-2009,2010 AND 08/18/2018 (LAST [facility]) Ulcerative colitis HX Weakness RIGHT SIDED WEAKNESS Surgical History H/O cataract removal with insertion of prosthetic lens R/L H/O lithotripsy History of bronchoscopy History of cholecystectomy History of colonoscopy Hx of hernia repair S/P cystoscopy with ureteral stent placement Family History Mother Stroke Father Myocardial infarction Sister Family history of diabetes mellitus Social History Preferred Language: Polish Communication Ability: Effective Visual Impairment: No Limitations Energy Audit Advisor Required: No Beliefs That Will Affect Care: None marital status: Current Living Situation: Spouse current occupational status: retired 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65, 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[employer], 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 Other Information That Helps Us Care for You: No Feels Safe at Home: Yes Safety Concerns: Feels Safe At This Time Smoking Status: Never smoker Second Hand Exposure: No ; Hx Alcohol Use: No Hx Substance Use: No Review of Systems 10 system review was performed and was negative except for pertinent positives and negatives as indicated in history of present illness Physical Exam Vital Signs Vital Signs - 24 hr 09/16/19 08:32 09/16/19 08:34 09/16/19 08:35 Temperature 36.8 C Temperature Source Oral Pulse Rate 84 91 H Pulse Rate from SpO2 Sensor 84 87 Respiratory Rate 26 H 18 Respiratory Depth Normal Blood Pressure 129/79 Blood Pressure Mean 103 Pulse Oximetry 95 95 95 Oxygen Delivery Method Room Air Room Air Sepsis Recent Fever Within 48 Hours No Sepsis New/Unexplained Change in Mental Status No Sepsis Action Taken by Nursing No Action Required 09/16/19 08:40 09/16/19 08:49 09/16/19 08:50 Temperature Temperature Source Pulse Rate 86 76 Pulse Rate from SpO2 Sensor 84 Respiratory Rate 21 25 H Respiratory Depth Blood Pressure Blood Pressure Mean Pulse Oximetry 95 96 Oxygen Delivery Method Room Air Sepsis Recent Fever Within 48 Hours Sepsis New/Unexplained Change in Mental Status Sepsis Action Taken by Nursing 09/16/19 09:00 09/16/19 09:01 09/16/19 09:10 Temperature Temperature Source Pulse Rate 68 66 69 Pulse Rate from SpO2 Sensor Respiratory Rate 24 23 23 Respiratory Depth Blood Pressure 137/77 Blood Pressure Mean 85 Pulse Oximetry Oxygen Delivery Method Sepsis Recent Fever Within 48 Hours Sepsis New/Unexplained Change in Mental Status Sepsis Action Taken by Nursing 09/16/19 09:20 09/16/19 09:30 09/16/19 09:31 Temperature Temperature Source Pulse Rate 70 66 66 Pulse Rate from SpO2 Sensor 67 Respiratory Rate 26 H 22 25 H Respiratory Depth Blood Pressure 133/78 Blood Pressure Mean 89 Pulse Oximetry 95 Oxygen Delivery Method Sepsis Recent Fever Within 48 Hours Sepsis New/Unexplained Change in Mental Status Sepsis Action Taken by Nursing 09/16/19 10:45 09/16/19 10:46 09/16/19 10:50 Temperature Temperature Source Pulse Rate 63 68 70 Pulse Rate from SpO2 Sensor 62 65 69 Respiratory Rate 13 20 25 H Respiratory Depth Blood Pressure 148/68 H Blood Pressure Mean 112 Pulse Oximetry 95 95 94 Oxygen Delivery Method Sepsis Recent Fever Within 48 Hours Sepsis New/Unexplained Change in Mental Status Sepsis Action Taken by Nursing 09/16/19 11:00 09/16/19 11:10 11/15/19 11:20 Temperature Temperature Source Pulse Rate 64 63 61 Pulse Rate from SpO2 Sensor 63 64 61 Respiratory Rate 31 H 24 25 H Respiratory Depth Blood Pressure 139/95 Blood Pressure Mean 102 Pulse Oximetry 93 94 94 Oxygen Delivery Method Sepsis Recent Fever Within 48 Hours Sepsis New/Unexplained Change in Mental Status Sepsis Action Taken by Nursing 09/16/19 11:30 09/16/19 11:31 09/16/19 11:40 Temperature Temperature Source Pulse Rate 63 62 63 Pulse Rate from SpO2 Sensor 63 62 63 Respiratory Rate 24 23 24 Respiratory Depth Blood Pressure 171/89 H Blood Pressure Mean 116 Pulse Oximetry 93 93 95 Oxygen Delivery Method Sepsis Recent Fever Within 48 Hours Sepsis New/Unexplained Change in Mental Status Sepsis Action Taken by Nursing 09/16/19 11:50 09/16/19 12:00 09/16/19 12:01 Temperature Temperature Source Pulse Rate 65 65 84 Pulse Rate from SpO2 Sensor 65 64 68 Respiratory Rate 27 H 25 H 20 Respiratory Depth Blood Pressure 143/90 H Blood Pressure Mean 103 Pulse Oximetry 92 95 94 Oxygen Delivery Method Sepsis Recent Fever Within 48 Hours Sepsis New/Unexplained Change in Mental Status Sepsis Action Taken by Nursing 09/16/19 12:10 09/16/19 12:20 09/16/19 12:30 Temperature Temperature Source Pulse Rate 68 60 63 Pulse Rate from SpO2 Sensor 68 60 63 Respiratory Rate 24 23 24 Respiratory Depth Blood Pressure 147/110 H Blood Pressure Mean 123 Pulse Oximetry 94 95 96 Oxygen Delivery Method Sepsis Recent Fever Within 48 Hours Sepsis New/Unexplained Change in Mental Status Sepsis Action Taken by Nursing 09/16/19 12:31 Temperature Temperature Source Pulse Rate 62 Pulse Rate from SpO2 Sensor 61 Respiratory Rate 25 H Respiratory Depth Blood Pressure Blood Pressure Mean Pulse Oximetry 95 Oxygen Delivery Method Sepsis Recent Fever Within 48 Hours Sepsis New/Unexplained Change in Mental Status Sepsis Action Taken by Nursing CONSTITUTIONAL: Healthy and well nourished appearing male. The patient gets occasional sharp jolts of pain, from a few seconds to admitted apart. HEENT: Normocephalic, atraumatic. Pupils equal, round and reactive. No sc leral icterus or conjunctival injection/pallor. NECK: Full active range of motion without discomfort. No JVD or carotid bruits on auscultation. LYMPHATICS: No cervical chain adenopathy. RESPIRATORY: Clear to auscultation bilaterally with no wheezing, crackles, rhonchi or stridor. Deep breathing worsens the patient's discomfort. CARDIOVASCULAR: Regular rate and rhythm with no murmurs, rubs or gallops. GASTROINTESTINAL: Bowel sounds present in all quadrants. Abdomen is soft and nontender to palpation. MUSCULOSKELETAL: Full range of motion of all joints without discomfort. INTEGUMENTARY: No rash or other significant dermatologic conditions noted. Specifically the patient has no left thorax dermatomal rash. HEMATOLOGIC: No ecchymosis or petechiae. PSYCHIATRIC: Positive affect. NEUROLOGIC: No focal neurologic deficits noted. Course Course Patient history and physical exam were performed. Nurse's notes were reviewed. Vital signs were reviewed and were normal. A quick review of past medical history does not show any evidence for cardiac disease or other prior work-ups for chest pain. IV access was established, and labs were drawn. Triage ECG was reviewed, showing a sinus rhythm with a first-degree AV block and a premature atrial contraction. No ST elevations or other ischemic changes. A two-view chest x-ray did not show any consolidations, pneumothorax, cardiomegaly or widened mediastinum. Review of labs showed a markedly elevated d-dimer. CBC was unremarkable. Troponin was normal. Creatinine is 1.69. Potassium is 3.3. The patient does have a normal GFR, therefore CT angiography of the chest was performed, showing evidence for a left lung pulmonary embolus. Patient was administered IV heparin with bolus per protocol. The patient was also seen and examined by Dr. Ngo, ED attending physician, who recommended hospitalist consultation. The case was then discussed with Dr. Renato lawrence, [facility] hospitalist, who came to the emergency department for further evaluation. Please see his dictation for further treatment and final disposition. Administered Medications Heparin Sodium/Dextrose (Heparin Sodium/Dextrose) 25,000 units in 500 mls @ 26 mls/hr IV .[id number] [facility]; Protocol Stop: 10/16/19 11:29 Last Titration: 09/16/19 19:09 Dose: 1,300 units/hr, 26 mls/hr Documented by: [id number] Cosigned by: [id number] Titration: 09/16/19 15:33 Dose: 1,300 units/hr, 26 mls/hr Documented by: [id number] Cosigned by: [id number] Admin: 09/16/19 12:05 Dose: 1,300 units/hr, 26 mls/hr Documented by: [id number] Cosigned by: [id number] Ioversol (Optiray 320 125ml) 120 ml IV ONCE PRN PRN Reason: Interaction Checking Stop: 09/20/19 10:22 Last Admin: 09/16/19 10:23 Dose: 120 ml Documented by: [id number] Potassium Citrate (Urocit-K) 10 meq PO TID THIERNO Stop: 10/16/19 13:59 Last Admin: 09/16/19 17:28 Dose: Not Given Documented by: [id number] Discontinued Medications Heparin Sodium (Porcine) (Heparin Sodium (Porcine)) Confirm Administered Dose 5,000 units .ROUTE .STK-MED ONE Stop: 09/16/19 11:56 Last Admin: 09/16/19 12:24 Dose: Not Given Documented by: [id number] Heparin Sodium (Porcine) (Heparin Iv Bolus) Confirm Administered Dose 10,000 units .ROUTE .STK-MED ONE Stop: 09/16/19 11:58 Last Admin: 09/16/19 12:06 Dose: 6,000 units Documented by: [id number] Cosigned by: [id number] Heparin Sodium/Dextrose () 1 ea IV NOW STA; Protocol Stop: 09/16/19 11:20 Last Admin: 09/16/19 12:06 Dose: 1 ea Documented by: [id number] Heparin Sodium/Dextrose () 1 ea IV Q15M THIERNO; Protocol Stop: 09/16/19 16:16 Last Admin: 09/16/19 15:39 Dose: Not Given Documented by: [id number] Critical Care Time Critical Care Time: Yes Total Critical Care Time: 40 I have personally spent greater than 40 minutes of critical care time in the direct management of this patient. This includes bedside care, interpretation of diagnostic studies, and testing, discussion with consultants, patient, and family members, and other required patient management activities. This 40 m inutes is in excess of all separately billable procedures. The patient does have a history of chronic interstitial lung disease, and now with pulmonary embolus, acute pulmonary demise was of concern. The patient was administered IV heparin for his condition. Medical Decision Making Medical Records Attestation: I reviewed the patient's medical records. Home Medications Current Medication List: was personally reviewed by me Laboratory Data Attestation: I reviewed the patient's lab results. Result diagrams: 09/16/19 08:40 09/16/19 08:40 Lab Results 09/16/19 09/16/19 09/16/19 Range/Units 08:40 08:40 08:40 WBC 6.11 (4.8-10.8) K/uL RBC 4.64 L (4.7-6.1) M/uL Hgb 13.4 L (14.0-18.0) g/dL Hct 40.4 L (42-52) % MCV 87.1 (80-100) fL MCH 28.9 (25-34) pg MCHC 33.2 (32-36) g/dL RDW Std Deviation 47.9 H (36.4-46.3) fL RDW Coeff of Luisito 14.9 H (11.5-14.5) % Plt Count 158 (130-400) K/uL MPV 10.2 (7.4-10.4) fL Immature Gran % (Auto) 0.2 % Neut % (Auto) 62.8 % Lymph % (Auto) 23.1 % [place] % (Auto) 8.2 % Eos % (Auto) 5.2 % Baso % (Auto) 0.5 % Immature Gran # (Auto) 0.01 (0.00-0.02) K/uL Neut # (Auto) 3.84 (1.4-6.5) K/uL Lymph # (Auto) 1.41 (1.2-3.4) K/uL [place] # (Auto) 0.50 (0.11-0.59) K/uL Eos # (Auto) 0.32 (0-0.5) K/uL Baso # (Auto) 0.03 (0-0.2) K/uL APTT (21.0-31.0) Seconds PTT Ratio D-Dimer 4190 H* (0-500) ug/L FEU Sodium 141 (136-145) mmol/L Potassium 3.3 L (3.5-5.1) mmol/L Chloride 104 (98-107) mmol/L Carbon Dioxide 32 (21-32) mmol/L Anion Gap 5.0 (3-11) BUN 22 H (7-18) mg/dl Creatinine 1.69 H (0.6-1.4) mg/dl Est Cr Clr Drug Dosing 32.9 ml/min Est GFR ( Amer) 42.3 Est GFR (Non-Af Amer) 36.5 BUN/Creatinine Ratio 13.0 (10-20) Glucose 150 H (70-99) mg/dl Calcium 9.2 (8.5-10.1) mg/dl Total Bilirubin 0.9 (0.2-1) mg/dl AST 17 (15-37) U/L ALT 17 (12-78) U/L Alkaline Phosphatase 64 (45-117) U/L Troponin I < 0.015 (0-0.045) ng/ml NT-Pro-B Natriuret Pep (0-1800) pg/ml Total Protein 7.6 (6.4-8.2) gm/dl Albumin 3.3 L (3.4-5.0) gm/dl Globulin 4.3 H (2.5-4.0) gm/dl Albumin/Globulin Ratio 0.8 L (0.9-2) Lipase 141 (73-393) U/L 09/16/19 09/16/19 Range/Units 08:40 08:40 WBC (4.8-10.8) K/uL RBC (4.7-6.1) M/uL Hgb (14.0-18.0) g/dL Hct (42-52) % MCV (80-100) fL MCH (25-34) pg MCHC (32-36) g/dL RDW Std Deviation (36.4-46.3) fL RDW Coeff of Luisito (11.5-14.5) % Plt Count (130-400) K/uL MPV (7.4-10.4) fL Immature Gran % (Auto) % Neut % (Auto) % Lymph % (Auto) % [place] % (Auto) % Eos % (Auto) % Baso % (Auto) % Immature Gran # (Auto) (0.00-0.02) K/uL Neut # (Auto) (1.4-6.5) K/uL Lymph # (Auto) (1.2-3.4) K/uL [place] # (Auto) (0.11-0.59) K/uL Eos # (Auto) (0-0.5) K/uL Baso # (Auto) (0-0.2) K/uL APTT 27.5 (21.0-31.0) Seconds PTT Ratio 1.0 D-Dimer (0-500) ug/L FEU Sodium (136-145) mmol/L Potassium (3.5-5.1) mmol/L Chloride (98-107) mmol/L Carbon Dioxide (21-32) mmol/L Anion Gap (3-11) BUN (7-18) mg/dl Creatinine (0.6-1.4) mg/dl Est Cr Clr Drug Dosing ml/min Est GFR ( Amer) Est GFR (Non-Af Amer) BUN/Creatinine Ratio (10-20) Glucose (70-99) mg/dl Calcium (8.5-10.1) mg/dl Total Bilirubin (0.2-1) mg/dl AST (15-37) U/L ALT (12-78) U/L Alkaline Phosphatase (45-117) U/L Troponin I (0-0.045) ng/ml NT-Pro-B Natriuret Pep 169 (0-1800) pg/ml Total Protein (6.4-8.2) gm/dl Albumin (3.4-5.0) gm/dl Globulin (2.5-4.0) gm/dl Albumin/Globulin Ratio (0.9-2) Lipase (73-393) U/L Imaging Data Attestation: I personally reviewed and interpreted this imaging study as follows: My Impression: My interpretation of a two-view chest x-ray does not show any consolidations or pneumothorax. No cardiomegaly appreciated. CT angiography of the chest was ordered because of a markedly elevated d-dimer, showing evidence for a left pulmonary embolus. Radiologist reports were reviewed. Radiologist's Impression: XR chest 2V PA/lateral CLINICAL HISTORY: Stabbing L Chest Pain - h/o interstitial lung dz COMPARISON STUDY: Chest CT June 06, 2019. FINDINGS: Incidental note is made of cholecystectomy clips. Lung volumes are mildly diminished. This is unchanged. No pneumothorax or pleural effusion is not ed. There is no evidence for pulmonary edema. Interstitial thickening, greater within the right lung, is similar to CT of June 06, 2019. Cardiomediastinal silhouette is stable. Appearance of the chest is unchanged. IMPRESSION: No change in appearance of the chest. Interstitial lung disease with low lung volumes. CT angio chest PE protocol CLINICAL HISTORY: 84 years-old Male presenting with history of interstitial lung disease, atypical chest pain, elevated d-dimer, clinical concern for pulmonary embolus. TECHNIQUE: Multidetector CT angiography of the chest was performed after administration of intravenous contrast. 3-D volumetric and/or maximum intensity projection (MIP) images were subsequently reconstructed for review. IV contrast: 120 mL of Optiray 320. One or more dose lowering techniques were used consistent with the principles of ALARA (as low as reasonably achievable), including automatic exposure control, mA or kV adjustment to individual patient size, and/or use of iterative reconstruction. COMPARISON: Noncontrast chest CT from 06/06/2019. CT DOSE (mGy.cm): The estimated cumulative dose is 301.14 mGy.cm. FINDINGS: Property Claims Manager topogram: Cholecystectomy clips. Pulmonary vasculature: The study is suboptimal for the assessment of the pulmonary vascular tree secondary to respiratory motion artifact. Filling defect within a left upper lobe segmental pulmonary artery consistent with acute pulmonary embolus. Additional smaller subsegmental emboli noted in the superior lingular region. Main pulmonary artery is not enlarged. No flattening of the interventricular septum. No intracardiac filling defect. No reflux of contrast into the hepatic veins. Remaining chest: Soft tissues: Normal thyroid and thoracic inlet. Small mediastinal lymph nodes likely reactive. No hilar lymphadenopathy. Atherosclerosis of the aorta. Normal heart size. No pericardial or pleural effusion. Cholecystectomy clips. Well- defined hypodense lesions in the left hepatic lobe likely hepatic cysts. These are unchanged. Lungs and airways: No pneumothorax. Central airways patent. Pulmonary arteries mildly enlarged relative to adjacent bronchi. Mild interlobular septal thickening, right greater than left. Subpleural reticular opacities bilaterally involving both upper and lower lungs, right greater than left. Evaluation is degraded by respiratory motion artifact. No superimposed infiltrate. Musculoskeletal: Degenerative changes of the spine. IMPRESSION: 1. Acute segmental and subsegmental pulmonary emboli in the left upper lung/lingula. No CT evidence of right heart strain. 2. Redemonstration of interstitial lung disease with peripheral fibrotic changes involving both upper and lower lung zones. No superimposed infiltrate to suggest pneumonia. ECG Data Attestation: I personally reviewed and interpreted this ECG as follows: Indication: + chest pain Rate (beats per minute): 90 Rhythm: + sinus rhythm ECG Intervals/blocks: + First degree AV block, + Normal QRS and + Normal QT ECG [place]: + Left axis deviation ECG ST segments: + Normal ST segments ECG Findings: + PACs Blood Pressure Blood Pressure Findings: Elevated blood pressure MDM Narrative Patient presents with complaint of intermittent left lateral chest stabbing pain. The pain is not reproducible on exam. Given the patient's history of interstitial lung disease, I did feel that further work-up be performed. The patient's d-dimer is significantly elevated, and CT angiography does show evidence for a pulmonary embolus. ECG and troponin were normal. Heart score is 4-5, with a risk of major acute cardiac event of 13%. PERC score is also to, however given the patient's history of interstitial lung disease, and elevated d-dimer would indicate significant severity of his condition. The patient was admitted for further management. Impression & Plan Left pulmonary embolus, Chronic interstitial lung disease, Left-sided chest pain Discharge Plan Visit Data *Final* Discharge Date/Time: 09/16/19 13:45 Chief Complaint: Chest Pain Stated Complaint: CHEST PAIN ED Provider: Darell Ngo ED Midlevel Provider: Alon Atkins Discharge Problem: Left pulmonary embolus, Chronic interstitial lung disease, Left-sided chest pain Patient Disposition: Admitted As Inpatient Discharge Instructions Interventions: ED Discharge Assessment Last Done: 09/16/19 13:45
[2019-09-16 09:07] LABS: Alanine Aminotransferase 17 U/L (12-78); Albumin Level 3.3 gm/dl (3.4-5.0); Aspartate Aminotransferase 17 U/L (15-37); Blood Urea Nitrogen 22 mg/dl (7-18); Calcium 9.2 mg/dl (8.5-10.1); Carbon Dioxide 32 mmol/L (21-32); Chloride 104 mmol/L (98-107); Creatinine Clr Calc Pharmacy 32.9 ml/min; Est GFR (African American) 42.3; Est GFR (Non-African American) 36.5; Glucose 150 mg/dl (70-99); Lipase 141 U/L (73-393); Potassium 3.3 mmol/L (3.5-5.1); Sodium 141 mmol/L (136-145)
[2019-09-16 09:12] LABS: Albumin Globulin Ratio 0.8 (0.9-2); Alkaline Phosphatase 64 U/L (45-117); Bilirubin,Total 0.9 mg/dl (0.2-1); Globulin 4.3 gm/dl (2.5-4.0); Total Protein 7.6 gm/dl (6.4-8.2); Troponin I < 0.015 ng/ml (0-0.045)
[2019-09-16 09:26] LABS: D Dimer 4190 ug/L FEU (0-500)
--- NOTE | 2019-09-16 09:46 | XRay Report ---
XR chest 2V PA/lateral CLINICAL HISTORY: Stabbing L Chest Pain - h/o interstitial lung dz COMPARISON STUDY: Chest CT June 06, 2019. FINDINGS: Incidental note is made of cholecystectomy clips. Lung volumes are mildly diminished. This is unchanged. No pneumothorax or pleural effusion is noted. There is no evidence for pulmonary edema. Interstitial thickening, greater within the right lung, is similar to CT of June 06, 2019. Cardiome diastinal silhouette is stable. Appearance of the chest is unchanged. IMPRESSION: No change in appearance of the chest. Interstitial lung disease with low lung volumes. Electronically signed by: Reese Arredondo M.D. 09/16/2019 9:44 AM
[2019-09-16] MEDS ORDERED: OPTIRAY 320 125ml IV PRN (10:23)
--- NOTE | 2019-09-16 10:40 | CT Scan Report ---
CT angio chest PE protocol CLINICAL HISTORY: 84 years-old Male presenting with history of interstitial lung disease, atypical ch est pain, elevated d-dimer, clinical concern for pulmonary embolus. TECHNIQUE: Multidetector CT angiography of the chest was performed after administration of intravenou s contrast. 3-D volumetric and/or maximum intensity projection (MIP) images were subsequently reconst ructed for review. IV contrast: 120 mL of Optiray 320. One or more dose lowering techniques were used consistent with the principles of ALARA (as low as reasonably achievable), including automatic expos ure control, mA or kV adjustment to individual patient size, and/or use of iterative reconstruction. COMPARISON: Noncontrast chest CT from 06/06/2019. CT DOSE (mGy.cm): The estimated cumulative dose is 301.14 mGy.cm. FINDINGS: Soil Analyst topogram: Cholecystectomy clips. Pulmonary vasculature: The study is suboptimal for the assessment of the pulmonary vascular tree secondary to respiratory mo tion artifact. Filling defect within a left upper lobe segmental pulmonary artery consistent with acu te pulmonary embolus. Additional smaller subsegmental emboli noted in the superior lingular region. M ain pulmonary artery is not enlarged. No flattening of the interventricular septum. No intracardiac f illing defect. No reflux of contrast into the hepatic veins. Remaining chest: Soft tissues: Normal thyroid and thoracic inlet. Small mediastinal lymph nodes likely reactive. No hi lar lymphadenopathy. Atherosclerosis of the aorta. Normal heart size. No pericardial or pleural effus ion. Cholecystectomy clips. Well-defined hypodense lesions in the left hepatic lobe likely hepatic cy sts. These are unchanged. Lungs and airways: No pneumothorax. Central airways patent. Pulmonary arteries mildly enlarged relati ve to adjacent bronchi. Mild interlobular septal thickening, right greater than left. Subpleural reti cular opacities bilaterally involving both upper and lower lungs, right greater than left. Evaluation is degraded by respiratory motion artifact. No superimposed infiltrate. Musculoskeletal: Degenerative changes of the spine. IMPRESSION: 1. Acute segmental and subsegmental pulmonary emboli in the left upper lung/lingula. No CT evidence of right heart strain. 2. Redemonstration of interstitial lung disease with peripheral fibrotic changes involving both uppe r and lower lung zones. No superimposed infiltrate to suggest pneumonia. The report will be called/faxed according to standard departmental protocol for a critical finding. Electronically signed by: Miles Gray M.D. 09/16/2019 10:38 AM
[2019-09-16] MEDS ORDERED: HEPARIN SOD 5,000 UNIT/0.5 ML VIAL ONE (11:55)
[2019-09-16] MEDS ORDERED: HEPARIN SOD (PORCINE) 1000 UNIT/ML 10 ML VIAL ONE (11:57)
[2019-09-16] MEDS: HEPARIN SODIUM/DEXTROSE 25,000 UNITS/500 ML BAG IV SCH (12:05)
--- NOTE | 2019-09-16 12:24 | History & Physical Report ---
Date of Service September 16, 2019 Assessment & Plan (1) Acute pulmonary embolus: Plan Admit patient to telemetry, monitor for arrhythmia Obtain ultrasound lower extremity rule out large DVT, consider retrievable IVC filter if a life-threatening large friable DVT present in the large vein in lower extremity Start patient on anticoagulation, benefits and risks discussed with patient, despite of his history of hemorrhagic stroke in 2009 patient agreed to anticoagulation Will hold aspirin Check lipids panel and hemoglobin A1c to stratify patient's risk factors Start early mobility if ultrasound does not show DVT in the lower extremity or if DVTs are below knee Continue home meds as appropriate I explained to the patient that sometimes pulmonary embolism can be an early sign of underlying occult cancer, cancer screening age appropriate is required as an outpatient, patient stated acknowledgment and will follow up with primary care physician ZAID Bosch, instructed patient to try Ultram while inpatient placed a consult for case management to check hiss copay for Eliquis Patient was instructed as follows "As you were started on anticoagulation/blood thinner Do not to take any [id number] pain medicine except Tylenol (do not take any large doses of aspirin, ibuprofen, Motrin, Aleve, Advil, naproxen, diclofenac sodium, oral Voltaren, also not allowed to take fish oil as all these medications increase your incidence of bleeding) You can take Tylenol as needed for pain but not more than 3000 mg per day as a total dose (that is the maximum of 6 tablet, 500 mg each, divided throughout the day) , if you take more than the total of 3000 mg of Tylenol throughout the day you might get liver damage. If you have any liver disease and was instructed by your physician not to take Tylenol in this case of course do not take Tylenol If Tylenol is not sufficient to control your pain or urine not allowed to take Tylenol for any liver disease talk to your doctor about prescribing a pain medicine. In case of bleeding, apply firm pressure at the bleeding site and call 911 if bleeding doesn't stop within minutes" (2) Pleuritic chest pain: Pain control with morphine Secondary to PE (3) CKD (chronic kidney disease) stage 3, GFR 30-59 ml/min: Currently stable (4) HTN (hypertension): Currently stable Continue hydrochlorothiazide Continue potassium supplement Continue Proscar (5) BPH (benign prostatic hyperplasia): Continue Flomax Continue Proscar Appears to be stable (6) CVA (cerebral vascular accident): Will hold aspirin for now Defer to neurologist as an outpatient regarding reinitiation of aspirin History of Present Illness Chief Complaint: Chest pain Primary Care Provider: Kesha Yañez MD 84-year-old man with past medical history of chronic kidney disease stage II- III, severe interstitial lung fibrosis,Congenital talipes equinovarus left foot, hammertoe left foot, GERD, 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 He presented to the ED today with new onset pleuritic severe stabbing pain on the left lateral chest aggravated by movement and taking deep breath relieved by sitting still, associated with shortness of breath but denies any nausea or diaphoresis. Pain is localized and quantified as 8/10. CTA showed acute segmental and subsegmental pulmonary emboli in the left upper lung. Patient will be admitted for initiation of therapy Allergies Allergy/AdvReac Type Severity Reaction Status Date / Time fluticasone [From Flonase] Allergy Unknown Unknown Verified 09/16/19 09:50 Home Medications Home Medications Medication Instructions Recorded Confirmed Type cholecalciferol (vitamin D3) 1,000 unit PO QAM 08/18/18 09/16/19 History [Vitamin D3] finasteride [Proscar] 5 mg PO QAM 08/18/18 09/16/19 History tamsulosin [Flomax] 0.4 mg PO QAM 08/18/18 09/16/19 History aspirin [Ecotrin Low Strength] 81 mg PO QAM 04/01/19 09/16/19 History Oxygen Home #1 ea 05/22/19 09/10/19 History potassium citrate 10 mEq (1,080 10 meq PO TID #270 tab 06/08/19 09/16/19 Rx mg) tablet,extended release hydrochlorothiazide 12.5 mg capsule 12.5 mg PO QAM cap 07/24/19 09/16/19 History omeprazole 20 mg capsule,delayed 20 mg PO QAM 07/24/19 09/16/19 History release ipratropium-albuterol 3 ml INHALATION BID PRN 07/25/19 09/16/19 History ibuprofen 200 mg PO QID PRN 09/16/19 09/16/19 History Past Med/Surg History Medical History Acute calculous cholecystitis BPH (benign prostatic hyperplasia) Chronic bronchitis Chronic cough CKD (chronic kidney disease) stage 3, GFR 30-59 ml/min Colitis Dysphagia ON OCC PER SPOUSE Gait instability (Acute) Hypercholesteremia (Acute) 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 On home oxygen therapy 2L/MIN NC HS Restrictive lung disease (Acute) Stroke HX X 3-2009,2010 AND 08/18/2018 (LAST [facility]) Ulcerative colitis HX Weakness RIGHT SIDED WEAKNESS Surgical History H/O cataract removal with insertion of prosthetic lens R/L H/O lithotripsy History of bronchoscopy History of cholecystectomy History of colonoscopy Hx of hernia repair S/P cystoscopy with ureteral stent placement Family History Mother Stroke Father Myocardial infarction Sister Family history of diabetes mellitus Social History Preferred Language: Urdu Communication Ability: Effective Visual Impairment: No Limitations Dump Worker Required: No Beliefs That Will Affect Care: None marital status: Current Living Situation: Spouse current occupational status: retired 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65, 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[employer], 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 Feels Safe at Home: Yes Smoking Status: Never smoker Second Hand Exposure: No ; Hx Alcohol Use: No Hx Substance Use: No Review of Systems Review of Systems: Review of system Constitutional: No fever / no chills / no sweats / no weakness / no fatigue Eyes: no blurring of vision / no eye pain / no discharge / no redness ENT: no hearing loss / no epistaxis /no swallowing problems Respiratory: no cough / no wheezing /positive for shortness of breath/ no hemoptysis Cardiovascular: Positive for sharp localized left-sided chest pain/ no lower extremity edema / no palpitation Abdomen: no pain / no nausea / no vomiting / no constipation Musculoskeletal: no joint pain / no muscle pain / no joint swelling Genitourinary: no dysuria / no incontinence / no urinary retention Neurologic: no focal weakness / no numbness/tingling / no ataxia Psychiatric: no depression symptoms / no anxiety / no insomnia Endocrine: no excessive thirst / no excessive urination Hematologic: no abnormal bleeding / no bruising / no LN swelling Skin: No rash / no pallor Physical Exam Physical Exam: Physical examination General patient appears to be comfortable, not in acute distress HEENT: Atraumatic , normocephalic /no jaundice /no pallor /anicteric /no dry mucous membrane /normal external ear inspection Neck: Supple /no swelling /central trach Heart: S1/S2 normal/regular rate and rhythm/no gallop /no rub /no murmur Lungs: Clear to auscultation bilaterally/normal chest with expansion/no rhonchi/no rales/no wheezing/no use of accessory muscles of respiration Abdomen: Soft/nontender/no guarding/no rebound/no organomegaly/no pulsatile mass Musculoskeletal: No swelling/no edema/no tenderness/normal range of motion Neuro exam: Awake alert oriented 3/cranial nerves II through XII appear to be intact/sensation intact/moves all extremities/no abnormal movements Psychiatric evaluation: No depressed mood/normal affect Skin: No rash on exposed skin area/no erythema Extremity: Normal pulse/no pitting edema/no clubbing or cyanosis Endocrine/lymphatic: No obvious lymphadenopathy /no lymphedema Results & Data Vital Signs (Past 12 Hours) Vital Signs Temp Pulse Resp BP Pulse Ox 09/16/19 11:00 64 31 H 139/95 93 09/16/19 10:50 70 25 H 94 09/16/19 10:46 68 20 148/68 H 95 09/16/19 10:45 63 13 95 09/16/19 09:31 66 25 H 95 09/16/19 09:30 66 22 133/78 09/16/19 09:20 70 26 H 09/16/19 09:10 69 23 09/16/19 09:01 66 23 09/16/19 09:00 68 24 137/77 09/16/19 08:50 76 25 H 09/16/19 08:49 96 09/16/19 08:40 86 21 95 09/16/19 08:35 95 09/16/19 08:34 91 H 18 95 09/16/19 08:32 36.8 C 84 26 H 129/79 95 Code Status & VTE Plan Code Status Discussed with patient and his , he wishes to be DNR/DNI PG Care Time/CCT Total # of Minutes Spent Total Time Spent with Patient: 35 minutes total time spent is greater than 50% in coordination of care (as documented) at patient's floor/unit and/or counseling patient/family discussion of care with nursing staff (1) BPH (benign prostatic hyperplasia) Lower urinary tract symptom presence: symptoms absent Qualified Code(s): N40.0 - Benign prostatic hyperplasia without lower urinary tract symptoms (2) HTN (hypertension) Hypertension type: essential hypertension Qualified Code(s): I10 - Essential (primary) hypertension (3) CVA (cerebral vascular accident) CVA mechanism: thrombosis Precerebral and cerebral artery: unspecified cerebral artery Qualified Code(s): I63.30 - Cerebral infarction due to thrombosis of unspecified cerebral artery
[2019-09-16] MEDS ORDERED: ALBUT/IPRATROP 3MG/0.5MG NEB 3 ML VIAL INH PRN (12:35)
[2019-09-16] MEDS ORDERED: ALUMINUM/MAGNESIUM SUSP 30 ML UDC PO PRN (12:38)
[2019-09-16] MEDS ORDERED: MAGNESIUM HYDROXIDE SUSP 30 ML UDC PO PRN (12:38)
[2019-09-16] MEDS ORDERED: POLYETHYLENE (MIRALAX) 17 GM PACK PO PRN (12:38)
[2019-09-16] MEDS ORDERED: TRAMADOL HCL 50 MG TABLET PO PRN (12:38)
[2019-09-16] MEDS ORDERED: MoRPHine SULFATE 2 MG/ML CARP IV PRN (12:38)
[2019-09-16] MEDS ORDERED: ACETAMINOPHEN 325 MG TAB PO PRN (12:38)
[2019-09-16] MEDS ORDERED: ZOLPIDEM TARTRATE 5 MG TAB PO PRN (12:38)
[2019-09-16 13:53] LABS: Partial Thromboplastin Time 27.5 Seconds (21.0-31.0)
[2019-09-16] MEDS ORDERED: HEPARIN SODIUM/DEXTROSE 25,000 UNITS/500 ML BAG IV SCH (15:30)
[2019-09-16] MEDS ORDERED: Heparin IV Standard *NO* Bolus IV SCH (15:30)
--- NOTE | 2019-09-16 16:04 | Ultrasound Report ---
US venous doppler LE BI CLINICAL HISTORY: pulmonary embolism COMPARISON STUDY: No previous studies for comparison. FINDINGS: Real-time and color flow Doppler imaging were performed. Flow was seen within the femoral, popliteal and calf veins with no intraluminal thrombus demonstrated. The saphenous vein is patent. IMPRESSION: No evidence of lower extremity DVT. Electronically signed by: Bijan Cummings M.D. 09/16/2019 4:02 PM
[2019-09-16] MEDS: POTASSIUM CITRATE 10 MEQ TAB PO SCH ×2 (17:28→20:24)
[2019-09-16 19:13] LABS: Partial Thromboplastin Ratio 4.9
[2019-09-16 19:15] LABS: Partial Thromboplastin Time 131.5 Seconds (21.0-31.0)
[2019-09-16] MEDS ORDERED: HydrALAZINE HCL 20 MG/ML VIAL IV PRN (19:39)
[2019-09-16 20:12] LABS: Partial Thromboplastin Ratio 3.5
[2019-09-16 20:25] LABS: Partial Thromboplastin Time 95.9 Seconds (21.0-31.0)
[2019-09-16] MEDS: hydroCHLOROthiazide 25 MG TAB PO SCH (22:02)
[2019-09-16] MEDS: FINASTERIDE 5 MG TAB PO SCH (22:02)
[2019-09-17 03:17] LABS: Hematocrit (blood only) 37.5 % (42-52); Hemoglobin 12.6 g/dL (14.0-18.0); Mean Corpuscular Hemoglobin 28.4 pg (25-34); Mean Corpuscular Hgb Conc 33.6 g/dL (32-36); Mean Corpuscular Volume 84.7 fL (80-100); Mean Platelet Volume 10.1 fL (7.4-10.4); Platelet Count 151 K/uL (130-400); RDW Coefficient of Variation 14.8 % (11.5-14.5); RDW Standard Deviation 46.2 fL (36.4-46.3); Red Blood Count 4.43 M/uL (4.7-6.1); White Blood Count 6.61 K/uL (4.8-10.8)
[2019-09-17 03:41] LABS: INR 1.1 (0.9-1.1); Partial Thromboplastin Ratio 2.9; Prothrombin Time 11.3 Seconds (9.0-12.0)
[2019-09-17 03:42] LABS: BUN Creatinine Ratio 12.7 (10-20); Calcium 8.8 mg/dl (8.5-10.1); Creatinine Clr Calc Pharmacy 35.2 ml/min; Est GFR (African American) 44.8; Est GFR (Non-African American) 38.7; Magnesium 1.6 mg/dl (1.8-2.4); Potassium 3.5 mmol/L (3.5-5.1)
[2019-09-17 03:45] LABS: Albumin Globulin Ratio 0.8 (0.9-2); Bilirubin,Total 0.9 mg/dl (0.2-1)
[2019-09-17 03:52] LABS: Partial Thromboplastin Time 78.9 Seconds (21.0-31.0)
[2019-09-17] MEDS: HEPARIN SODIUM/DEXTROSE 25,000 UNITS/500 ML BAG IV SCH ×2 (07:05→09:24)
[2019-09-17] MEDS: POTASSIUM CITRATE 10 MEQ TAB PO SCH ×3 (08:18→20:27)
[2019-09-17] MEDS: PANTOprazole 40 MG TAB PO SCH (08:19)
[2019-09-17] MEDS: CHOLECALCIFEROL 1,000 UNITS TAB PO SCH (08:19)
[2019-09-17] MEDS: TAMSULOSIN HCL 0.4 MG CAP PO SCH (08:20)
[2019-09-17] MEDS ORDERED: hydroCHLOROthiazide 25 MG TAB PO SCH (09:00)
[2019-09-17] MEDS ORDERED: FINASTERIDE 5 MG TAB PO SCH (09:00)
[2019-09-17 10:44] LABS: Partial Thromboplastin Ratio 2.5
[2019-09-17 11:34] LABS: Partial Thromboplastin Time 67.3 Seconds (21.0-31.0)
[2019-09-17] MEDS ORDERED: HEPARIN GTT: STOP ORDER ONE (17:00)
[2019-09-17 17:54] LABS: Partial Thromboplastin Ratio 1.6; Partial Thromboplastin Time 43.8 Seconds (21.0-31.0)
--- NOTE | 2019-09-17 17:54 | Billing Data ---
Coding Level of Care Code 91609 Prolonged Care (int'l)
--- NOTE | 2019-09-17 17:54 | Hospitalist Progress Note ---
Date of Service September 17, 2019 Assessment & Plan (1) Acute pulmonary embolus: pulmonary artery severity score was moderate - hence admission. fortunately he's done quite well - pleuritic pain improving and dyspnea surprisingly good despite his chronic lung disease -heparin --> eliquis ----discussed terminal clerk risk/benefit --> unprovoked PE ~30% 5yr recurrence risk so would favor extended treatment BUT with prior ICH agree that risk on eliquis at full dosing plus being on ASA is concerning, BUT would not want to leave off ASA indefinitely due to cerebrovascular disease/CVA -in this respect, we all agree that most rational plan of action is eliquis full treatment dosing (10mg bid x7 days then 5mg bid thereafter) for 3 months, then if doing well after 3 months likely reduce to 5mg daily or possibly even 2.5mg daily for extended dosing to reduce recurrent VTE risk (albeit less than at full dosing) but to reduce risk of ICH -- and at this time once eliquis reduced could then cautiously resume ASA 81mg daily -hopefully home tomorrow (2) Pleuritic chest pain: doing better Secondary to PE (3) CKD (chronic kidney disease) stage 3, GFR 30-59 ml/min: will follow for need for renal dosing of eliquis (4) HTN (hypertension): BP reasonable given the situation - continue current meds (5) BPH (benign prostatic hyperplasia): no complaints today continue home meds (6) CVA (cerebral vascular accident): Will hold aspirin for now due to prior ICH as well - and being on full dosing of eliquis for PE. see above, though - d/w pt and family that anticoagulants generally arent as protective as antiplatelets for vascular disease - so would likely follow strategy of reducing eliquis after ~3 months if he's shown good improvement from PE, then cautiously resume 81mg ASA at that time (7) Interstitial lung disease: chronic - this plus PE causing significant MOODY. check 2step try to set up for home O2 (has stationary but no portability) again ~50mins face to face as above outlined time in ~110p time out ~2p Subjective Doing better, breathing is okay. Still has dyspnea on exertion, but it is difficult to tell how much is due to PE vs how much is baseline - seems to relate more or less baseline MOODY -- BUT, fairly bad MOODY at baseline. was working on home O2 but did not have yet. extensive discussions on PE, symptoms, treatment, future stroke risk, future ICH risk, and plans. chest pain doing better. time in ~110p, time out ~2p ~50mins face to face in discussion/education/outlining plan of care and answering questions Review of Systems Review of Systems: All systems reviewed & are unremarkable except as noted in HPI & below Physical Exam Physical Exam: gen pleasant nad heent nc at mmm breathing unlabored no accessory muscles good effort skin no rashes no pallor or icterus neuro no new focal deficits CT reviewed both report and films Results & Data Vital Signs (Past 12 Hours) Vital Signs Temp Pulse Pulse Resp BP Pulse Ox 09/17/19 15:14 74 09/17/19 14:53 97.9 F 65 16 155/78 H 94 09/17/19 11:22 97.7 F 65 16 117/69 94 09/17/19 07:32 62 09/17/19 07:20 98.4 F 64 16 137/84 98 PG Care Time/CCT Total # of Minutes Spent Total Time Spent with Patient: Total time spent is greater than 50% in coordination of care (as documented) at patient's floor/unit and/or counseling patient: (1) HTN (hypertension) Hypertension type: essential hypertension Qualified Code(s): I10 - Essential (primary) hypertension (2) BPH (benign prostatic hyperplasia) Lower urinary tract symptom presence: symptoms absent Qualified Code(s): N40.0 - Benign prostatic hyperplasia without lower urinary tract symptoms (3) CVA (cerebral vascular accident) CVA mechanism: thrombosis Precerebral and cerebral artery: unspecified cerebral artery Qualified Code(s): I63.30 - Cerebral infarction due to thrombosis of unspecified cerebral artery
[2019-09-17] MEDS: APIXABAN 5 MG TABLET PO SCH (18:59)
[2019-09-17] MEDS: FINASTERIDE 5 MG TAB PO SCH (20:28)
[2019-09-17] MEDS: hydroCHLOROthiazide 25 MG TAB PO SCH (20:28)
[2019-09-18] MEDS: APIXABAN 5 MG TABLET PO SCH (06:04)
[2019-09-18] MEDS: CHOLECALCIFEROL 1,000 UNITS TAB PO SCH (08:07)
[2019-09-18] MEDS: POTASSIUM CITRATE 10 MEQ TAB PO SCH ×2 (08:07→14:32)
[2019-09-18] MEDS: PANTOprazole 40 MG TAB PO SCH (08:07)
[2019-09-18] MEDS: TAMSULOSIN HCL 0.4 MG CAP PO SCH (08:07)
--- NOTE | 2019-09-18 18:06 | Discharge Summary ---
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 He presented to the ED today with new onset pleuritic severe stabbing pain on the left lateral chest aggravated by movement and taking deep breath relieved by sitting still, associated with shortness of breath but denies any nausea or diaphoresis. Pain is localized and quantified as 8/10. CTA showed acute segmental and subsegmental pulmonary emboli in the left upper lung. Patient will be admitted for initiation of therapy Principal Diagnosis PE Discharge Exam gen pleasant nad heent nc at mmm breathing unlabored no pallor or icterus. gait quite fast self-steadies, pulse ox drops to 88% on room air after short walk down [place] and back on my check Discharge Data Allergies Allergy/AdvReac Type Severity Reaction Status Date / Time fluticasone [From Flonase] Allergy Unknown Unknown Verified 09/16/19 09:50 Consultations 09/16/19 11:19 ED Decision to Admit Stat 09/16/19 14:36 Consult Case Management - Discharge Planning Stat 09/17/19 18:45 Consult Case Management - Discharge Planning Routine Ordered Studies 09/16/19 09:43 CT angio chest PE protocol Stat 09/16/19 12:36 US venous doppler [facility] Stat Hospital Course (1) Acute pulmonary embolus: pulmonary artery severity score was moderate - hence admission. fortunately he's done quite well - pleuritic pain improving and dyspnea surprisingly good despite his chronic lung disease -heparin --> eliquis ----previously discussed terminal system operator risk/benefit --> unprovoked PE ~30% 5yr recurrence risk so would favor extended treatment BUT with prior ICH agree that risk on eliquis at full dosing plus being on ASA is concerning, BUT would not want to leave off ASA indefinitely due to cerebrovascular disease/CVA -in this respect, seems that most rational plan of action is eliquis full treatment dosing (10mg bid x7 days then 5mg bid thereafter) for 3 months, then if doing well after 3 months likely reduce to 5mg daily or possibly even 2.5mg daily for extended dosing to reduce recurrent VTE risk (albeit less than at full dosing) but to reduce risk of ICH -- and at this time once eliquis reduced could then cautiously resume ASA 81mg daily -stable for home today (2) Pleuritic chest pain: doing better Secondary to PE (3) CKD (chronic kidney disease) stage 3, GFR 30-59 ml/min: will follow for need for renal dosing of eliquis, but right now well above cutoff of 15ml/min (4) HTN (hypertension): BP reasonable given the situation - continue current meds (5) BPH (benign prostatic hyperplasia): no complaints related to this, continue home meds (6) CVA (cerebral vascular accident): Will hold aspirin for now due to prior ICH as well - and being on full dosing of eliquis for PE. see above, though - d/w pt and family that anticoagulants generally arent as protective as antiplatelets for vascular disease - so would likely follow strategy of reducing eliquis after ~3 months if he's shown good improvement from PE, then cautiously resume 81mg ASA at that time (7) Interstitial lung disease: chronic - this plus PE causing significant MOODY. home with portable O2 Total Time Total Time Spent Total Time Spent (In Minutes): >30 Discharge Plan Discharge Items Patient Disposition: Home - Self-Care Reason For Visit: PE Discharge Diagnosis: pulmonary embolism (blood clots in the lungs) Activity: Resume your previous activity Non-emergency contact: Primary Care Provider and Bible Teacher Call non-emergency contact if: you have any medication questions Follow-up/Referrals: Kesha Benitez MD [Primary Care Provider] - Diet: Regular Addtl Attending Provider Instructions: pulmonary emboli (blood clots in the lungs) -as we discussed, this is a fairly common finding in people with chronic lung disease -- the more sluggish bloodflow getting through lungs just allows things more of a propensity to clot -while there are "clot busting" medicines, because they cause so much harm with bleeding, we generally only even consider using them when someone is in "near " condition with their clots - since this was fortunately not at all you, we proceeded with what we normally use - blood thinners; the blood thinners help protect you from having the clots grow or from forming new ones, but as far as actually resolving, your body has to take care of the rest (as we talked about) -the pain you were feeling was due to inflammation from lung tissue downstream from the clots - because that tissue gets damaged, it gets inflamed, because inflammation can "drip" through the body, the inflammation can drip into your chest wall and cause the pain you were feeling. that will continue to get better day by day -we'll need to treat the clots with blood thinners for the next several months -- because the "newer" blood thinners are generally just as effective, safer, and easier to take than the older ones, we're going to have you on eliquis (apixaban) -- for the first week it will be 10mg twice a day, then you'll drop to 5mg once a day thereafter. -as you improve, your PCP will follow how you're doing and guide you on how long we have to have you on the full dosing of blood thinners - as good as you look for what you're going through, my guess now is probably being on the full dosing for about 3 months -because of the prior bleeding in your brain, it's not elizalde to be on the aspirin at the same time as the full dosing of blood thinner, so we'd recommend you hold off on the aspirin while you're on the full dosing of eliquis. at the same time, because blood thinners like eliquis don't really have as much protection from regular atherosclerotic disease (like what appears to have been the cause of your stroke) we'd prefer to have you off the aspirin for as little time as possible -adding to the mix is that when someone forms a clot without a large "provoking reason" (like fractures, trauma, etc) the risk of forming a clot again in the next 5 years is about 30% - so that would heavily suggest that we should do some form of clot treating blood thinner indefinitely - BUT, since it usually takes lower dosing to prevent a clot than to treat one, the most rational strategy might be to treat with full dosing (10mg twice a day for a week, then reduce to 5mg twice a day) for about 3 months, and then if you're doing well, reduce it to more of a prevention-range dosing (5mg daily or maybe even 2.5mg daily) to provide room to get back on the aspirin when someone is on a blood thinner, obviously there's more risk of bleeding than when they're not. the newer blood thinners like eliquis are lower risk of serious bleeds than older blood thinners like coumadin - which is another reason why we're using it. but: -if you have bleeding that you can put pressure on (such as a nosebleed or if you cut your finger) - put pressure on it and then look at the clock -- the majority of bleeding will respond to 10 minutes of pressure. if it's bleeding that doesn't, then it's worth a trip to the office or the ER as the nosebleed could need packed or cauterized, or the cut could need a stitch. i recommend the "look at the clock" portion of it because if you're holding pressure on something that's bleeding, 2 minutes will feel like 10, 10 will feel like an eternity. -if it is bleeding that you can't put pressure on (such as vomiting blood or pooping blood) then it should be a trip straight to the ER since you and your felt that you wanted a fresh start with a PCP, we've gotten you set up with: Dr Cesar Adams MD [facility], [address]. [phone] he's scheduled to see you on September 22 at 3:30pm Pending Studies at Discharge: No Stand-Alone Forms: My [facility] [employer], Smoking Cessation Medications and DC Order Prescriptions: New apixaban 5 mg tablet 5 mg PO BID Qty: 60 RF: 3 Continued potassium citrate 10 mEq (1,080 mg) tablet extended release 10 meq PO TID Qty: 270 RF: 3 omeprazole 20 mg capsule,delayed release(DR/EC) 20 mg PO QAM RF: 0 (DME) Oxygen Home Liters Per Minute See Dose Instructions .ROUTE .MEDSUPPLY Qty: 1 RF: 0 ibuprofen 200 mg Tablet 200 mg PO QID PRN (Reason: Pain) RF: 0 finasteride [Proscar] 5 mg tablet 5 mg PO QAM RF: 0 tamsulosin [Flomax] 0.4 mg capsule 0.4 mg PO QAM RF: 0 cholecalciferol (vitamin D3) [Vitamin D3] 1,000 unit Capsule 1,000 unit PO QAM RF: 0 hydrochlorothiazide 12.5 mg capsule 12.5 mg PO QAM RF: 0 ipratropium-albuterol 0.5 mg-3 mg(2.5 mg base)/3 mL Solution For Nebulization 3 ml INHALATION BID PRN (Reason: Shortness Of Breath) RF: 0 Discontinued aspirin [Ecotrin Low Strength] 81 mg tablet,delayed release (DR/EC) 81 mg PO QAM RF: 0 Discharge Orders: Discharge Order (Routine); Ordered 09/18/19 Ordered By: Satish Villanueva Admission Data Admit Date/Time: 09/16/19 12:38 Attending Provider: Satish Villanueva Admit Provider: Denice Gómez Primary Care Provider: Kesha Benitez V. Other Providers: Kiarra Aguilar ; Denice Gómez Other Interventions: Discharge Summary Assessment (RN) Last Done: 09/18/19 15:36 DC Date/Time DO NOT enter until pt leaves facility: 09/18/19 16:16
== END 2019-09-18 16:16 | disposition home or self-care (01) | DRG 176 ==
LOC: ED 08:25 → SUATTDRO 12:38 → 2W 12:38

== ENCOUNTER 2021-04-19 11:58 | Inpatient (IN) ==
[2021-04-19] MEDS ORDERED: SODIUM CHLORIDE 0.9% 1000ML 1,000 ML IV SCH ×3 (12:30→18:06)
--- NOTE | 2021-04-19 12:48 | XRay Report ---
SINGLE VIEW CHEST CLINICAL HISTORY: Sepsis. FINDINGS: 2 AP, portable, upright chest radiographs are compared to study dated 09/16/2019 and correl ated with chest CT dated 11/23/2020. The heart is top normal for projection noting atherosclerotic nithya cification of the thoracic aorta. Findings of chronic interstitial lung disease and elevation of the right hemidiaphragm are similar to previous. Question superimposed airspace opacities in the right mi d to lower lung. No large pleural effusion or pneumothorax is seen. The skeletal structures are osteo penic. The bony thorax is grossly intact. Cholecystectomy clips are noted in the right upper quadrant . IMPRESSION: 1. Changes of chronic interstitial lung disease are similar to previous. 2. Question superimposed airspace opacities in the right mid to lower lung. Correlate clinically for evidence of a superimposed infectious/inflammatory pneumonitis. ACT 112: Negative or not required by law. Electronically signed by: Zaid Nuno M.D. 04/19/2021 12:46 PM
--- NOTE | 2021-04-19 12:51 | CT Scan Report ---
CT SCAN OF THE BRAIN WITHOUT IV CONTRAST CLINICAL HISTORY: Change in mental status. Dizziness. COMPARISON STUDY: CT of the brain dated 08/18/2018. TECHNIQUE: Unenhanced axial CT scan of the brain is performed from the vertex to the skull base. A do se lowering technique was utilized adhering to the principles of ALARA. CT DOSE: 746.71 mGy.cm FINDINGS: Brain parenchyma: There are age-related involutional changes noting moderate confluent subcortical a nd periventricular microangiopathic change. There is no hemorrhage, mass effect, or evidence of acute territorial ischemia by CT criteria. Chronic appearing infarcts are present within the thalami and b robert ganglia. Long-white matter differentiation is preserved. No extra-axial fluid collection is seen . Ventricles, sulci, cisterns: Prominent secondary to involutional change. Intracranial vasculature: There is atherosclerotic calcification of the cavernous carotid and vertebr al arteries. Calvarium: Unremarkable. Sinuses and mastoids: The visualized paranasal sinuses are clear. There is trace right mastoid effusi on. The left mastoid air cells are well pneumatized. Orbits: The bony orbits are grossly intact. There are bilateral ocular lens implants. IMPRESSION: There is no hemorrhage, mass effect, or evidence of acute territorial ischemia by CT seun navarro. ACT 112: Negative or not required by law. Electronically signed by: Zaid Nuno M.D. 04/19/2021 12:49 PM
--- NOTE | 2021-04-19 12:59 | Emergency Department Note ---
History of Present Illness General Chief complaint: Illness Stated complaint: OFF BALANCE/COLD/CANNOT EAT Time Seen by Provider: 04/19/21 12:06 Source: patient and family Mode of arrival: wheelchair Limitations: altered mental status History of Present Illness Provider complaint: Confusion, chills, decreased appetite Onset (ago): day(s) 4 Maximum Pain Intensity: 0 Current Pain Intensity: 0 Associated symptoms: + fever/chills, + loss of appetite, + malaise and + nausea/vomiting Treatments prior to arrival: none This is an 86-year-old male presents emergency department with family due to concern for worsening symptoms over the last 3 to 4 days of poor appetite, chills, and increased confusion. Family states he has had accompanying difficulty walking and difficulty swallowing. Family states that this had been present previously due to prior strokes, however does seem worse over the last 3 to 4 days. They state that while he typically is "always cold" however that has been worse over the last several days despite standing in the room with a temperature was elevated that was also in the sun. Patient denies any pain. states he frequently complains of frontal sinus pressure and rhinorrhea, she states this has been ongoing also. She states he does use supplemental oxygen at night and when they go out of the house with exertion. She states patient is anticoagulated due to prior strokes. She states his temperature does typically run low and when she checked last night it was 98.2 which she feels is high for him. She states today he had a scheduled doctor's appointment and in route they stopped at [facility] to get some lunch. She states he took 1 bite and choked and vomited. He denies chest pain, shortness of breath, abdominal pain, leg swelling. Pt seen during a time of high acuity and national emergency pandemic while wearing PPE. Home Medications Medication Instructions Recorded Confirmed Type Oxygen Home #1 ea 05/22/19 11/21/20 History rivaroxaban 20 mg tablet 20 mg PO DAILY@1900 02/14/20 04/19/21 History ipratropium 0.5 mg-albuterol 3 mg 3 ml INHALATION BID PRN #540 ml 02/17/20 04/19/21 Rx (2.5 mg base)/3 mL nebulization soln potassium citrate 10 mEq (1,080 10 meq PO TID #270 tab 06/12/20 04/19/21 Rx mg) tablet,extended release omeprazole 20 mg capsule,delayed 20 mg PO QAM #90 cap 07/03/20 04/19/21 Rx release finasteride 5 mg tablet 5 mg PO QAM #90 tab 08/28/20 04/19/21 Rx Balance Of Nature Vitamins 4 cap PO QDL 04/19/21 04/19/21 History cholecalciferol (vitamin D3) 50 mcg PO QAM 04/19/21 04/19/21 History [Vitamin D3] hydrochlorothiazide 12.5 mg PO HS 04/19/21 04/19/21 History tamsulosin [Flomax] 0.4 mg PO HS 04/19/21 04/19/21 History Allergies Allergy/AdvReac Type Severity Reaction Status Date / Time fluticasone [From Flonase] Allergy Unknown Unknown Verified 04/19/21 14:22 Past Med/Surg History Medical History (Updated 04/20/21 @ 22:52 by Bria Ni, ) Acute calculous cholecystitis BPH (benign prostatic hyperplasia) Chronic bronchitis Chronic cough Chronic kidney disease, stage II (mild) Colitis Dysphagia ON OCC PER SPOUSE Gait instability History of pulmonary embolus (PE) Hypercholesteremia 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 Nocturia On home oxygen therapy 2L/MIN NC HS Restrictive lung disease Stroke HX X 3-2009,2010 AND 08/18/2018 ([facility]) Ulcerative colitis HX Urgency of urination Weakness RIGHT SIDED WEAKNESS Surgical History H/O cataract removal with insertion of prosthetic lens R/L H/O lithotripsy History of bronchoscopy History of cholecystectomy History of colonoscopy Hx of hernia repair S/P cystoscopy with ureteral stent placement Family History Mother Stroke Father Myocardial infarction Sister Family history of diabetes mellitus Myocardial infarction Sister Pulmonary embolism Social History (Updated 04/19/21 @ 15:40 by Rajendra Morin) Smoking Status: Never smoker Second Hand Exposure: No; Hx Alcohol Use: No Hx Substance Use: No Preferred Language: Wallisian Communication Ability: Effective Visual Impairment: No Limitations Breeding Technician Required: No Beliefs That Will Affect Care: None marital status: Current Living Situation: Spouse current occupational status: retired 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 and A total of 10 systems reviewed and were otherwise negative Physical Exam Vital Signs Vital Signs - 24 hr 04/19/21 11:59 04/19/21 12:19 04/19/21 13:00 Temperature 37.3 C Temperature Source Temporal Artery Scan Pulse Rate 70 75 Pulse Rate from SpO2 Sensor Pulse Rhythm Regular Regular Pulse Strength Normal Respiratory Rate 20 20 20 Respiratory Effort / Characteristics Non-Labored Non-Labored Respiratory Depth Normal Respiratory Pattern Regular Blood Pressure 167/73 H Blood Pressure Mean 104 Blood Pressure Position Sitting Pulse Oximetry 94 94 94 Oxygen Delivery Method Room Air Room Air Oxygen Flow Rate Sepsis Recent Fever Within 48 Hours No Sepsis New/Unexplained Change in Mental Status N/A Sepsis Action Taken by Nursing No Action Required Oxygen Flow Rate - Titration Pulse Oximetry Post Tiitration 04/19/21 13:07 04/19/21 13:31 04/19/21 13:54 Temperature Temperature Source Pulse Rate 72 74 Pulse Rate from SpO2 Sensor 73 74 Pulse Rhythm Pulse Strength Respiratory Rate 22 29 H Respiratory Effort / Characteristics Respiratory Depth Respiratory Pattern Blood Pressure 151/90 H 159/81 H Blood Pressure Mean 110 107 Blood Pressure Position Pulse Oximetry 95 95 86 L Oxygen Delivery Method Oxygen Flow Rate 0 Sepsis Recent Fever Within 48 Hours Sepsis New/Unexplained Change in Mental Status Sepsis Action Taken by Nursing Oxygen Flow Rate - Titration 2 Pulse Oximetry Post Tiitration 100 04/19/21 14:02 04/19/21 14:30 04/19/21 15:00 Temperature Temperature Source Pulse Rate 75 75 69 Pulse Rate from SpO2 Sensor 74 74 71 Pulse Rhythm Pulse Strength Respiratory Rate 26 H 25 H 22 Respiratory Effort / Characteristics Respiratory Depth Respiratory Pattern Blood Pressure 157/83 H 146/80 H 147/83 H Blood Pressure Mean 107 102 104 Blood Pressure Position Pulse Oximetry 100 100 100 Oxygen Delivery Method Oxygen Flow Rate Sepsis Recent Fever Within 48 Hours Sepsis New/Unexplained Change in Mental Status Sepsis Action Taken by Nursing Oxygen Flow Rate - Titration Pulse Oximetry Post Tiitration 04/19/21 16:01 Temperature Temperature Source Pulse Rate 72 Pulse Rate from SpO2 Sensor Pulse Rhythm Pulse Strength Respiratory Rate 22 Respiratory Effort / Characteristics Respiratory Depth Respiratory Pattern Blood Pressure 169/89 H Blood Pressure Mean 115 Blood Pressure Position Pulse Oximetry Oxygen Delivery Method Oxygen Flow Rate Sepsis Recent Fever Within 48 Hours Sepsis New/Unexplained Change in Mental Status Sepsis Action Taken by Nursing Oxygen Flow Rate - Titration Pulse Oximetry Post Tiitration GENERAL: alert, well appearing, well nourished, no distress, non-toxic EYE EXAM: normal conjunctiva, PERRL and EOM's grossly intact OROPHARYNX: no exudate, no erythema, lips, buccal mucosa, and tongue normal and mucous membranes are moist NECK: supple, no nuchal rigidity, no adenopathy, non-tender LUNGS: Clear to auscultation. Normal chest wall mechanics, no w/r/r HEART: no murmurs, S1 normal and S2 normal ABDOMEN: abdomen soft, non-tender, normo-active bowel sounds, no masses, no rebound or guarding. BACK: Back is symmetrical on inspection and there is no deformity, no midline tenderness, no CVA tenderness. SKIN: no rashes and no bruising UPPER EXTREMITIES: upper extremities are grossly normal. FROM, nml pulses b/l. LOWER EXTREMITIES: No pitting edema. FROM, nml pulses b/l. NEURO EXAM: Awake, alert, confused, cranial nerves II-XII grossly intact, normal speech, no facial droop, no gross weakness of arms, no gross weakness of legs. Gross sensation intact. Course Course 1402: Patient and updated on results thus far. VSS. Administered Medications Doxycycline Hyclate (Doxycycline Hyclate 100 Mg Cap) 100 mg PO BID [facility] Stop: 04/27/21 08:59 Last Admin: 04/20/21 20:55 Dose: 100 mg Documented by: [id number] Admin: 04/20/21 10:08 Dose: 100 mg Documented by: [id number] Finasteride (Finasteride 5 Mg Tab) 5 mg PO QAM [facility] Stop: 05/20/21 08:59 Last Admin: 04/20/21 08:20 Dose: 5 mg Documented by: [id number] Ceftriaxone Sodium 2,000 mg/ (Dextrose) 70 mls @ 100 mls/hr IV DAILY [facility]; Protocol Stop: 04/27/21 08:59 Last Infusion: 04/20/21 10:10 Dose: 0 mls/hr Documented by: [id number] Admin: 04/20/21 08:20 Dose: 100 mls/hr Documented by: [id number] Pantoprazole Sodium (Pantoprazole 40 Mg Tab) 40 mg PO QAM [facility] Stop: 05/20/21 08:59 Last Admin: 04/20/21 08:20 Dose: 40 mg Documented by: [id number] Potassium Citrate (Potassium Citrate 10 Meq Tab) 10 meq PO TID [facility] Stop: 05/19/21 20:59 Last Admin: 04/20/21 20:55 Dose: 10 meq Documented by: [id number] Admin: 04/20/21 14:32 Dose: 10 meq Documented by: [id number] Admin: 04/20/21 08:19 Dose: 10 meq Documented by: [id number] Admin: 04/19/21 20:06 Dose: 10 meq Documented by: [id number] Rivaroxaban (Rivaroxaban 20 Mg Tab) 20 mg PO DAILY@1900 [facility] Stop: 05/19/21 19:29 Last Admin: 04/20/21 19:36 Dose: 20 mg Documented by: [id number] Admin: 04/19/21 20:06 Dose: 20 mg Documented by: [id number] Tamsulosin HCl (Tamsulosin Hcl 0.4 Mg Cap) 0.4 mg PO HS [facility] Stop: 05/19/21 20:59 Last Admin: 04/20/21 20:55 Dose: 0.4 mg Documented by: [id number] Admin: 04/19/21 20:06 Dose: 0.4 mg Documented by: [id number] Vitamin D (Cholecalciferol 1,000 Units 25 Mcg Tab) [facility]: 05/20/21 08:59 Last Admin: 04/20/21 08:20 Dose: 2,000 units Documented by: [id number] Discontinued Medications Sodium Chloride (Nss 1000ml) 1,000 mls @ 999 mls/hr IV .Q1H1M [facility] Stop: 04/19/21 13:30 Last Infusion: 04/19/21 14:06 Dose: 0 mls/hr Documented by: [id number] Admin: 04/19/21 13:05 Dose: 999 mls/hr Documented by: [id number] Ceftriaxone Sodium (Rocephin) 2,000 mg in 70 mls @ 140 mls/hr IV NOW [facility] Stop: 04/19/21 13:49 Last Infusion: 04/19/21 14:08 Dose: 0 mls/hr Documented by: [id number] Admin: 04/19/21 13:38 Dose: 140 mls/hr Documented by: [id number] Magnesium Sulfate/Dextrose (Magnesium Sulfate / D5w) 1 gm in 100 mls @ 100 mls/hr IV NOW [facility] Stop: 04/19/21 14:41 Last Infusion: 04/19/21 15:47 Dose: 0 mls/hr Documented by: [id number] Admin: 04/19/21 14:20 Dose: 100 mls/hr Documented by: [id number] Sodium Chloride (Nss 1000ml) 1,000 mls @ 125 mls/hr IV .Q8H [facility] Stop: 05/19/21 13:44 Last Infusion: 04/19/21 18:08 Dose: 0 mls/hr Documented by: [id number] Admin: 04/19/21 14:20 Dose: 125 mls/hr Documented by: [id number] Piperacillin Sod/Tazobactam Sod (Zosyn) 4.5 gm in 120 mls @ 240 mls/hr IV NOW ONE Stop: 04/19/21 14:37 Last Infusion: 04/19/21 14:50 Dose: 0 mls/hr Documented by: [id number] Admin: 04/19/21 14:20 Dose: 240 mls/hr Documented by: [id number] Sodium Chloride (Nss 1000ml) 1,000 mls @ 75 mls/hr IV .[id number] [facility] Stop: 04/20/21 07:25 Last Infusion: 04/20/21 10:10 Dose: 0 mls/hr Documented by: [id number] Admin: 04/19/21 19:39 Dose: 75 mls/hr Documented by: [id number] Medical Decision Making Differential Diagnosis Differential diagnoses includes but is not limited to toxic, metabolic, infectious, traumatic, cardiac, neurologic, hematologic, psychiatric and inflammatory etiologies. Medical Records Attestation: I reviewed the patient's medical records. Home Medications Current Medication List: was personally reviewed by me Laboratory Data Attestation: I reviewed the patient's lab results. Result diagrams: 04/20/21 07:35 04/20/21 07:35 Lab Results 04/19/21 04/19/21 04/19/21 Range/Units 13:07 13:07 13:07 WBC 7.67 (4.8-10.8) K/uL RBC 4.80 (4.7-6.1) M/uL Hgb 14.0 (14.0-18.0) g/dL Hct 41.5 L (42-52) % MCV 86.5 (80-100) fL MCH 29.2 (25-34) pg MCHC 33.7 (32-36) g/dL RDW Std Deviation 46.6 H (36.4-46.3) fL RDW Coeff of Luisito 14.6 H (11.5-14.5) % Plt Count 168 (130-400) K/uL MPV 10.2 (7.4-10.4) fL Immature Gran % (Auto) 0.3 % Neut % (Auto) 73.4 % Lymph % (Auto) 16.9 % Tyrrell % (Auto) 8.1 % Eos % (Auto) 1.2 % Baso % (Auto) 0.1 % Neut # (Auto) 5.63 (1.4-6.5) K/uL Lymph # (Auto) 1.30 (1.2-3.4) K/uL Tyrrell # (Auto) 0.62 H (0.11-0.59) K/uL Eos # (Auto) 0.09 (0-0.5) K/uL Baso # (Auto) 0.01 (0-0.2) K/uL Immature Gran # (Auto) 0.02 (0.00-0.02) K/uL Sodium 140 (136-145) mmol/L Potassium 3.4 L (3.5-5.1) mmol/L Chloride 105 (98-107) mmol/L Carbon Dioxide 31 (21-32) mmol/L Anion Gap 4.0 (3-11) BUN 16 (7-18) mg/dl Creatinine 1.46 H (0.6-1.4) mg/dl Est Cr Clr Drug Dosing Not Reportable Est GFR ( Amer) 49.8 ml/min Est GFR (Non-Af Amer) 42.9 ml/min BUN/Creatinine Ratio 10.6 (10-20) Glucose 127 H (70-99) mg/dl Lactate 2.1 H* (0.4-2.0) mmol/L Calcium 9.3 (8.5-10.1) mg/dl Magnesium 1.7 L (1.8-2.4) mg/dl Total Bilirubin 0.9 (0.2-1) mg/dl AST 14 L (15-37) U/L ALT 16 (12-78) U/L Alkaline Phosphatase 65 (45-117) U/L Troponin I < 0.015 (0-0.045) ng/ml Total Protein 8.0 (6.4-8.2) gm/dl Albumin 3.5 (3.4-5.0) gm/dl Globulin 4.5 H (2.5-4.0) gm/dl Albumin/Globulin Ratio 0.8 L (0.9-2) Procalcitonin (0-0.5) ng/ml Urine Color Urine Appearance (Clear) Urine pH (4.5-7.5) Ur Specific [place] (1.000-1.030) Urine Protein (Negative) Urine Glucose (UA) (Negative) Urine Ketones (Negative) Urine Blood (Negative) Urine Nitrite (Negative) Urine Bilirubin (Negative) Urine Urobilinogen (Negative) Ur Leukocyte Esterase (Negative) COVID-19 Eval Order SARS-CoV-2 (PCR) (Negative) 04/19/21 04/19/21 04/19/21 Range/Units 13:07 13:45 14:47 WBC (4.8-10.8) K/uL RBC (4.7-6.1) M/uL Hgb (14.0-18.0) g/dL Hct (42-52) % MCV (80-100) fL MCH (25-34) pg MCHC (32-36) g/dL RDW Std Deviation (36.4-46.3) fL RDW Coeff of Luisito (11.5-14.5) % Plt Count (130-400) K/uL MPV (7.4-10.4) fL Immature Gran % (Auto) % Neut % (Auto) % Lymph % (Auto) % Tyrrell % (Auto) % Eos % (Auto) % Baso % (Auto) % Neut # (Auto) (1.4-6.5) K/uL Lymph # (Auto) (1.2-3.4) K/uL [place]rell # (Auto) (0.11-0.59) K/uL Eos # (Auto) (0-0.5) K/uL Baso # (Auto) (0-0.2) K/uL Immature Gran # (Auto) (0.00-0.02) K/uL Sodium (136-145) mmol/L Potassium (3.5-5.1) mmol/L Chloride (98-107) mmol/L Carbon Dioxide (21-32) mmol/L Anion Gap (3-11) BUN (7-18) mg/dl Creatinine (0.6-1.4) mg/dl Est Cr Clr Drug Dosing Est GFR ( Amer) ml/min Est GFR (Non-Af Amer) ml/min BUN/Creatinine Ratio (10-20) Glucose (70-99) mg/dl Lactate (0.4-2.0) mmol/L Calcium (8.5-10.1) mg/dl Magnesium (1.8-2.4) mg/dl Total Bilirubin (0.2-1) mg/dl AST (15-37) U/L ALT (12-78) U/L Alkaline Phosphatase (45-117) U/L Troponin I (0-0.045) ng/ml Total Protein (6.4-8.2) gm/dl Albumin (3.4-5.0) gm/dl Globulin (2.5-4.0) gm/dl Albumin/Globulin Ratio (0.9-2) Procalcitonin < 0.05 (0-0.5) ng/ml Urine Color Yellow Urine Appearance Clear (Clear) Urine pH 8.5 H (4.5-7.5) Ur Specific [place] 1.018 (1.000-1.030) Urine Protein Negative (Negative) Urine Glucose (UA) Negative (Negative) Urine Ketones Negative (Negative) Urine Blood Negative (Negative) Urine Nitrite Negative (Negative) Urine Bilirubin Negative (Negative) Urine Urobilinogen Negative (Negative) Ur Leukocyte Esterase Negative (Negative) COVID-19 Eval Order Covid19 at [facility] SARS-CoV-2 (PCR) (Negative) 04/19/21 04/19/21 Range/Units 14:47 15:12 WBC (4.8-10.8) K/uL RBC (4.7-6.1) M/uL Hgb (14.0-18.0) g/dL Hct (42-52) % MCV (80-100) fL MCH (25-34) pg MCHC (32-36) g/dL RDW Std Deviation (36.4-46.3) fL RDW Coeff of Luisito (11.5-14.5) % Plt Count (130-400) K/uL MPV (7.4-10.4) fL Immature Gran % (Auto) % Neut % (Auto) % Lymph % (Auto) % Tyrrell % (Auto) % Eos % (Auto) % Baso % (Auto) % Neut # (Auto) (1.4-6.5) K/uL Lymph # (Auto) (1.2-3.4) K/uL [place] # (Auto) (0.11-0.59) K/uL Eos # (Auto) (0-0.5) K/uL Baso # (Auto) (0-0.2) K/uL Immature Gran # (Auto) (0.00-0.02) K/uL Sodium (136-145) mmol/L Potassium (3.5-5.1) mmol/L Chloride (98-107) mmol/L Carbon Dioxide (21-32) mmol/L Anion Gap (3-11) BUN (7-18) mg/dl Creatinine (0.6-1.4) mg/dl Est Cr Clr Drug Dosing Est GFR ( Amer) ml/min Est GFR (Non-Af Amer) ml/min BUN/Creatinine Ratio (10-20) Glucose (70-99) mg/dl Lactate 1.3 (0.4-2.0) mmol/L Calcium (8.5-10.1) mg/dl Magnesium (1.8-2.4) mg/dl Total Bilirubin (0.2-1) mg/dl AST (15-37) U/L ALT (12-78) U/L Alkaline Phosphatase (45-117) U/L Troponin I (0-0.045) ng/ml Total Protein (6.4-8.2) gm/dl Albumin (3.4-5.0) gm/dl Globulin (2.5-4.0) gm/dl Albumin/Globulin Ratio (0.9-2) Procalcitonin (0-0.5) ng/ml Urine Color Urine Appearance (Clear) Urine pH (4.5-7.5) Ur Specific [place] (1.000-1.030) Urine Protein (Negative) Urine Glucose (UA) (Negative) Urine Ketones (Negative) Urine Blood (Negative) Urine Nitrite (Negative) Urine Bilirubin (Negative) Urine Urobilinogen (Negative) Ur Leukocyte Esterase (Negative) COVID-19 Eval Order SARS-CoV-2 (PCR) NEGATIVE (Negative) Imaging Data Radiologist's Impression: Chest X-Ray 04/19/21 12:19 SINGLE VIEW CHEST CLINICAL HISTORY: Sepsis. FINDINGS: 2 AP, portable, upright chest radiographs are compared to study dated 09/16/2019 and correlated with chest CT dated 11/23/2020. The heart is top normal for projection noting atherosclerotic calcification of the thoracic aorta. Fi ndings of chronic interstitial lung disease and elevation of the right hemidiaphragm are similar to previous. Question superimposed airspace opacities in the right mid to lower lung. No large pleural effusion or pneumothorax is seen. The skeletal structures are osteopenic. The bony thorax is grossly intact. Cholecystectomy clips are noted in the right upper quadrant. IMPRESSION: 1. Changes of chronic interstitial lung disease are similar to previous. 2. Question superimposed airspace opacities in the right mid to lower lung. Correlate clinically for evidence of a superimposed infectious/inflammatory pneumonitis. ACT 112: Negative or not required by law. Electronically signed by: Zaid Nuno M.D. 04/19/2021 12:[address] 04/19/21 12:19 CT SCAN OF THE BRAIN WITHOUT IV CONTRAST CLINICAL HISTORY: Change in mental status. Dizziness. COMPARISON STUDY: CT of the brain dated 08/18/2018. TECHNIQUE: Unenhanced axial CT scan of the brain is performed from the vertex to the skull base. A dose lowering technique was utilized adhering to the principles of ALARA. CT DOSE: 746.71 mGy.cm FINDINGS: Brain parenchyma: There are age-related involutional changes noting moderate confluent subcortical and periventricular microangiopathic change. There is no hemorrhage, mass effect, or evidence of acute territorial ischemia by CT criteria. Chronic appearing infarcts are present within the thalami and basal ganglia. Long-white matter differentiation is preserved. No extra-axial fluid co llection is seen. Ventricles, sulci, cisterns: Prominent secondary to involutional change. Intracranial vasculature: There is atherosclerotic calcification of the cavernous carotid and vertebral arteries. Calvarium: Unremarkable. Sinuses and mastoids: The visualized paranasal sinuses are clear. There is trace right mastoid effusion. The left mastoid air cells are well pneumatized. Orbits: The bony orbits are grossly intact. There are bilateral ocular lens implants. IMPRESSION: There is no hemorrhage, mass effect, or evidence of acute territorial ischemia by CT criteria. ACT 112: Negative or not required by law. Electronically signed by: Zaid Nuno M.D. 04/19/2021 12:49 PM ECG Data Attestation: I personally reviewed and interpreted this ECG as follows: Indication: + altered mental status Rate (beats per minute): 78 Rhythm: + normal sinus ECG Intervals/blocks: + First degree AV block, + Normal QRS and + Normal QT ECG [place]: + Left axis deviation ECG ST segments: + Normal ST segments MDM Narrative This is an elderly male who presents with family due to concern for chills, increased confusion, poor p.o. intake. Family provides most of the history and patient inquires when he can go home. Pt afebrile and VS stable. Labs reassuring, CT head with no acute pathology. CXR with evidence of PNA. Hx of ILD and prior PE, pt is anticoagulated. I do not suspect aspiration would manifest this quickly on imaging, likely CAP was evolving prior to gagging/vom iting episode just prior to arrival. Pt started on IV antibiotics, blood cultures pending. Pt not hypoxic. Elevated CURB 65 score with increased risk. Pt likely with evolving encephalopathy due to infection. Pt and family updated on all results. CAse discussed with hospitalist for additional evaluation. No evidence of bacteremia/sepsis, chf, or cardiac involvement at this time. An order was placed for continuous cardiac monitoring. The monitor shows a rate of __80_ with _normal sinus__ rhythm. Impression & Plan AMS (altered mental status), Pneumonia, CKD (chronic kidney disease) Discharge Plan Visit Data Chief Complaint: Illness Stated Complaint: OFF BALANCE/COLD/CANNOT EAT ED Provider: Bria Ni Discharge Problem: AMS (altered mental status), Pneumonia, CKD (chronic kidney disease) Patient Disposition: Admitted As Inpatient Discharge Instructions Interventions: ED Discharge Assessment Last Done: 04/19/21 17:56 Discharge Problem: AMS (altered mental status) Qualifiers: Altered mental status type: unspecified Qualified Code(s): R41.82 - Altered mental status, unspecified Pneumonia Qualifiers: Pneumonia type: due to unspecified organism Laterality: right Lung location: lower lobe of lung Qualified Code(s): J18.9 - Pneumonia, unspecified organism CKD (chronic kidney disease) Qualifiers: Chronic kidney disease stage: unspecified stage Qualified Code(s): N18.9 - Chronic kidney disease, unspecified
[2021-04-19] MEDS ORDERED: cefTRIAXone SODIUM 2,000 MG/70 ML BAG IV STA (13:20)
[2021-04-19 13:22] LABS: Basophils # (auto) 0.01 K/uL (0-0.2); Basophils % (auto) 0.1 %; Eosinophils # (auto) 0.09 K/uL (0-0.5); Eosinophils % (auto) 1.2 %; Hematocrit (blood only) 41.5 % (42-52); Immature Granulocytes # (auto) 0.02 K/uL (0.00-0.02); Immature Granulocytes % (auto) 0.3 %; Lymphocytes % (auto) 16.9 %; Mean Corpuscular Hemoglobin 29.2 pg (25-34); Mean Corpuscular Hgb Conc 33.7 g/dL (32-36); Mean Corpuscular Volume 86.5 fL (80-100); Mean Platelet Volume 10.2 fL (7.4-10.4); Monocytes # (auto) 0.62 K/uL (0.11-0.59); Monocytes % (auto) 8.1 %; Neutrophils # (auto) 5.63 K/uL (1.4-6.5); Neutrophils % (auto) 73.4 %; Platelet Count 168 K/uL (130-400); RDW Coefficient of Variation 14.6 % (11.5-14.5); RDW Standard Deviation 46.6 fL (36.4-46.3); White Blood Count 7.67 K/uL (4.8-10.8)
[2021-04-19 13:37] LABS: Alanine Aminotransferase 16 U/L (12-78); Albumin Level 3.5 gm/dl (3.4-5.0); Aspartate Aminotransferase 14 U/L (15-37); BUN Creatinine Ratio 10.6 (10-20); Blood Urea Nitrogen 16 mg/dl (7-18); Calcium 9.3 mg/dl (8.5-10.1); Carbon Dioxide 31 mmol/L (21-32); Chloride 105 mmol/L (98-107); Est GFR (African American) 49.8 ml/min; Est GFR (Non-African American) 42.9 ml/min; Glucose 127 mg/dl (70-99); Magnesium 1.7 mg/dl (1.8-2.4); Potassium 3.4 mmol/L (3.5-5.1); Sodium 140 mmol/L (136-145)
[2021-04-19 13:41] LABS: Albumin Globulin Ratio 0.8 (0.9-2); Alkaline Phosphatase 65 U/L (45-117); Bilirubin,Total 0.9 mg/dl (0.2-1); Globulin 4.5 gm/dl (2.5-4.0); Troponin I < 0.015 ng/ml (0-0.045)
[2021-04-19] MEDS ORDERED: MAGNESIUM SULFATE / D5W 1 GM/100 ML BAG IV STA (13:42)
[2021-04-19 13:54] LABS: Appearance Urine Clear (Clear); Bilirubin Urine Negative (Negative); Blood Urine Negative (Negative); Color Urine Yellow; Glucose Urine UA Negative (Negative); Ketones Urine Negative (Negative); Leukocyte Esterase Urine Negative (Negative); Nitrite Urine Negative (Negative); Protein Urine Negative (Negative); Specific Gravity Urine 1.018 (1.000-1.030); Urobilinogen Urine Negative (Negative); pH Urine 8.5 (4.5-7.5)
[2021-04-19] MEDS ORDERED: PIPERACILL/TAZOBAC CONSULT ACTIVE PRN (14:08)
[2021-04-19] MEDS ORDERED: PIPERACILLIN/TAZOBACTAM 4.5 GM/120 ML BAG IV ONE (14:08)
--- NOTE | 2021-04-19 15:24 | History & Physical Report ---
Date of Service April 19, 2021 Assessment & Plan (1) SIRS (systemic inflammatory response syndrome): exact source of his illness uncertain. most likely would be the lung. there is ?right sided pneumonia on cxr today. I am uncertain if cxr findings simply represent his interstitial lung disease. I elected, in light of prior kidney stone history, to obtain noncontrast CT a/p to r/o kidney stones. there were no acute findings on that study. further, the lung cuts simply showed his ILD and no superimposed pneumonia. in addition, procal is negative, and wbc count is normal. plan - repeat 2-view cxr in am. place on empiric rocephin/doxy to cover for CAP while awaiting repeat films. follow cultures. serial exams. (2) Pneumonia: ?RML/RLL on cxr today. or, do the cxr findings simply represent ILD?? repeat 2-view cxr in am. could consider CT chest if needed. empiric doxy/rocephin for now. obtain sputum culture as he endorses sputum production. received rocephin in ER prior to admission. COVID 19 testing negative. Of note -- patient UNVACCINATED against COVID-19. patient choked on a bite of [place] before admission, and endorses dysphagia at home - will ask speech to see. (3) Metabolic encephalopathy: has noted altered MS for 2-3 days in the context of his illness. likely metabolic due to underlying illness. supportive care. 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 on continuous NC O2 at home. (5) Chronic interstitial lung disease: stable. no change in chronic sputum production, no change in baseline dyspnea, no change in O2 requirements (2 L baseline). doubt exacerbation of ILD at this time - defer on steroid therapy. nebs prn. (6) GERD (gastroesophageal reflux disease): PPI (7) History of stroke: noted cont xarelto - but no h/o a.fib to my knowledge. one stroke was hemorrhagic. but he had other strokes as well - presumed thrombotic? is not on asa or plavix. is not on statin therapy. (8) Gait instability: in the context of illness. neuro exam today wnl. no dysmetria f-n-f maneuver, symmetric strength, etc. PT, OT evals requested. (9) History of ulcerative colitis: in remission for many years/decades per patient colon appears normal on CT no diarrhea or other lower GI issues (10) Dysphagia: obtain speech eval due to prior strokes? esophageal issues? combo? (11) Hypokalemia: 2nd HCTZ replace repeat BMP am replace low mag (12) Hypomagnesemia: 2nd HCTZ use replace repeat mag level am hold HCTZ for now (13) Nephrolithiasis: history of such. CT today with quiescent kidney stones - nothing moving or in the ureter; no hydronephrosis. I assume he is on potassium citrate due to his kidney stones?? (14) BPH (benign prostatic hyperplasia): no issues cont flomax cont finasteride (15) DVT prophylaxis: xarelto extensively updated at bedside History of Present Illness Chief Complaint: vomiting, weak, cold chills Primary Care Provider: Gideon Trejo 86yo male with h/o chronic hypoxic respiratory failure on home o2 due to pulmonary fibrosis, prior PE, BPH, HTN, and strokes presents with his due to 3-4 days of feeling cold, weakness, unsteadiness on his feet, poor appetite (chronic, but acutely worse), episode of emesis at [facility] just prior to arrival at [facility], and cough productive of sputum (chronic per however). has noted some confusion starting about 2 days ago as well. Denies sick contacts or recent travel. No obvious COVID-19 exposures. mentioned that his "stomach was rolling" earlier today. When asked what that means she says "I could see his bowels moving under his skin." No vomiting. No diarrhea. No loss of taste or smell. No abdominal pain. Has chronic foul-smelling urine but no changes from baseline. He has not been vaccinated against COVID-19. Allergies Allergy/AdvReac Type Severity Reaction Status Date / Time fluticasone [From Flonase] Allergy Unknown Unknown Verified 04/19/21 14:22 Home Medications Medication Instructions Recorded Confirmed Type Oxygen Home #1 ea 05/22/19 11/21/20 History rivaroxaban 20 mg tablet 20 mg PO DAILY@1900 02/14/20 04/19/21 History ipratropium 0.5 mg-albuterol 3 mg 3 ml INHALATION BID PRN #540 ml 02/17/20 04/19/21 Rx (2.5 mg base)/3 mL nebulization soln potassium citrate 10 mEq (1,080 10 meq PO TID #270 tab 06/12/20 04/19/21 Rx mg) tablet,extended release omeprazole 20 mg capsule,delayed 20 mg PO QAM #90 cap 07/03/20 04/19/21 Rx release finasteride 5 mg tablet 5 mg PO QAM #90 tab 08/28/20 04/19/21 Rx Balance Of Nature Vitamins 4 cap PO QDL 04/19/21 04/19/21 History cholecalciferol (vitamin D3) 50 mcg PO QAM 04/19/21 04/19/21 History [Vitamin D3] hydrochlorothiazide 12.5 mg PO HS 04/19/21 04/19/21 History tamsulosin [Flomax] 0.4 mg PO HS 04/19/21 04/19/21 History Past Med/Surg History Medical History (Updated 04/20/21 @ 08:01 by Rajendra Morin) Acute calculous cholecystitis BPH (benign prostatic hyperplasia) Chronic bronchitis Chronic cough Chronic kidney disease, stage II (mild) Colitis Dysphagia ON OCC PER SPOUSE Gait instability History of pulmonary embolus (PE) Hypercholesteremia 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 Nocturia On home oxygen therapy 2L/MIN NC HS Restrictive lung disease Stroke HX X 3-2009,2010 AND 08/18/2018 (LAST ONE [facility]) Ulcerative colitis HX Urgency of urination Weakness RIGHT SIDED WEAKNESS Surgical History H/O cataract removal with insertion of prosthetic lens R/L H/O lithotripsy History of bronchoscopy History of cholecystectomy History of colonoscopy Hx of hernia repair S/P cystoscopy with ureteral stent placement Family History Mother Stroke Father Myocardial infarction Sister Family history of diabetes mellitus Myocardial infarction Sister Pulmonary embolism Social History (Updated 04/19/21 @ 15:40 by Rajendra Morin) Smoking Status: Never smoker Second Hand Exposure: No; Hx Alcohol Use: No Hx Substance Use: No Preferred Language: Mongolian Communication Ability: Effective Visual Impairment: No Limitations Special Education Professional Required: No Beliefs That Will Affect Care: None marital status: Current Living Situation: Spouse current occupational status: retired 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65, 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[employer], 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[employer]) How many Children do You have: 1 How many Children do You have Comment: daughter, [place] Other Information That Helps Us Care for You: No Feels Safe at Home: Yes Safety Concerns: Feels Safe At This Time Assistive Devices: Oxygen - Continuous and Walker Review of Systems Constitutional: + chills, + fatigue, + weakness and + anorexia; no fever, no body aches and no weight loss Eyes: no visual changes during his illness Ear, Nose, Mouth, Throat: + dysphagia (intermittent, but "coughs and gags" per ); no sore throat Respiratory: + cough and + sputum production; no dyspnea Cardiovascular: no chest pain Gastrointestinal: + vomiting; no abdominal pain, no diarrhea/loose stools and no blood in stools Genitourinary: no urinary incontinence Musculoskeletal: + joint pain (wrists - chronic ) Integumentary: no rash Neurologic: + generalized weakness Psychiatric: mild memory issues (chronic) Endocrine: no diabetes Hematologic / Lymphatic: no night sweats Physical Exam Constitutional: + altered mental status (Mild ) and + frail appearing; no acute distress Eyes: PERRL ENMT: external ear and nose normal, oropharynx normal Neck: trachea midline, no thyromegaly Respiratory: no respiratory distress Auscultation: + rales; no wheezes Cardiovascular: Rate/Rhythm: regular rate and regular rhythm Heart Sounds: normal S1 (Heart tones distant) and normal S2; no murmur Vessels: posterior tibial pulses present and dorsalis pedis pulses present; no JVD Extremities: + edema (Trace b/l ) Chest (Breasts): Chest: normal inspection of chest Gastrointestinal (Abdomen): normal bowel sounds, soft, nontender, no hepatosplenomegaly Musculoskeletal: Extremities: + clubbing Skin: no rashes, warm and dry Neurologic: deep tendon reflexes 2+ bilaterally and moves all extremities; no focal motor deficits Speech / Cognition: normal speech Coordination: normal [id number] test Psychiatric: Orientation: alert, oriented to person, oriented to place and oriented to time (Got the year right; date was off ) Lymphatic: no cervical lymphadenopathy Results & Data Results & Data ([facility]) Vital Signs (Past 12 Hours) Vital Signs Temp Pulse Resp BP Pulse Ox 04/19/21 14:30 75 25 H 146/80 H 100 04/19/21 14:02 75 26 H 157/83 H 100 04/19/21 13:54 86 L 04/19/21 13:31 74 29 H 159/81 H 95 04/19/21 13:07 72 22 151/90 H 95 04/19/21 13:00 75 20 94 04/19/21 12:19 20 94 04/19/21 11:59 37.3 C 70 20 167/73 H 94 Laboratory Results Microbiology 04/19/21 13:07 Blood Aerobic Blood Culture - Pending 04/19/21 13:07 Blood Anaerobic Blood Culture - Pending 04/19/21 13:07 Blood Aerobic Blood Culture - Pending 04/19/21 13:07 Blood Anaerobic Blood Culture - Pending Labs 04/19/21 04/19/21 04/19/21 13:07 13:07 13:07 WBC 7.67 RBC 4.80 Hgb 14.0 Hct 41.5 L MCV 86.5 MCH 29.2 MCHC 33.7 RDW Std Deviation 46.6 H RDW Coeff of Luisito 14.6 H Plt Count 168 MPV 10.2 Immature Gran % (Auto) 0.3 Neut % (Auto) 73.4 Lymph % (Auto) 16.9 Casey % (Auto) 8.1 Eos % (Auto) 1.2 Baso % (Auto) 0.1 Neut # (Auto) 5.63 Lymph # (Auto) 1.30 Casey # (Auto) 0.62 H Eos # (Auto) 0.09 Baso # (Auto) 0.01 Immature Gran # (Auto) 0.02 Sodium 140 Potassium 3.4 L Chloride 105 Carbon Dioxide 31 Anion Gap 4.0 BUN 16 Creatinine 1.46 H Est Cr Clr Drug Dosing Not Reportable Est GFR ( Amer) 49.8 Est GFR (Non-Af Amer) 42.9 BUN/Creatinine Ratio 10.6 Glucose 127 H Lactate 2.1 H* Calcium 9.3 Magnesium 1.7 L Total Bilirubin 0.9 AST 14 L ALT 16 Alkaline Phosphatase 65 Troponin I < 0.015 Total Protein 8.0 Albumin 3.5 Globulin 4.5 H Albumin/Globulin Ratio 0.8 L Procalcitonin Urine Color Urine Appearance Urine pH Ur Specific [place] Urine Protein Urine Glucose (UA) Urine Ketones Urine Blood Urine Nitrite Urine Bilirubin Urine Urobilinogen Ur Leukocyte Esterase COVID-19 Eval Order SARS-CoV-2 (PCR) 04/19/21 04/19/21 04/19/21 13:07 13:45 14:47 WBC RBC Hgb Hct MCV MCH MCHC RDW Std Deviation RDW Coeff of Luisito Plt Count MPV Immature Gran % (Auto) Neut % (Auto) Lymph % (Auto) Casey % (Auto) Eos % (Auto) Baso % (Auto) Neut # (Auto) Lymph # (Auto) Casey # (Auto) Eos # (Auto) Baso # (Auto) Immature Gran # (Auto) Sodium Potassium Chloride Carbon Dioxide Anion Gap BUN Creatinine Est Cr Clr Drug Dosing Est GFR ( Amer) Est GFR (Non-Af Amer) BUN/Creatinine Ratio Glucose Lactate Calcium Magnesium Total Bilirubin AST ALT Alkaline Phosphatase Troponin I Total Protein Albumin Globulin Albumin/Globulin Ratio Procalcitonin < 0.05 Urine Color Yellow Urine Appearance Clear Urine pH 8.5 H Ur Specific [place] 1.018 Urine Protein Negative Urine Glucose (UA) Negative Urine Ketones Negative Urine Blood Negative Urine Nitrite Negative Urine Bilirubin Negative Urine Urobilinogen Negative Ur Leukocyte Esterase Negative COVID-19 Eval Order Covid19 at [facility] SARS-CoV-2 (PCR) 04/19/21 04/19/21 14:47 15:12 WBC RBC Hgb Hct MCV MCH MCHC RDW Std Deviation RDW Coeff of Luisito Plt Count MPV Immature Gran % (Auto) Neut % (Auto) Lymph % (Auto) Casey % (Auto) Eos % (Auto) Baso % (Auto) Neut # (Auto) Lymph # (Auto) Casey # (Auto) Eos # (Auto) Baso # (Auto) Immature Gran # (Auto) Sodium Potassium Chloride Carbon Dioxide Anion Gap BUN Creatinine Est Cr Clr Drug Dosing Est GFR ( Amer) Est GFR (Non-Af Amer) BUN/Creatinine Ratio Glucose Lactate 1.3 Calcium Magnesium Total Bilirubin AST ALT Alkaline Phosphatase Troponin I Total Protein Albumin Globulin Albumin/Globulin Ratio Procalcitonin Urine Color Urine Appearance Urine pH Ur Specific [place] Urine Protein Urine Glucose (UA) Urine Ketones Urine Blood Urine Nitrite Urine Bilirubin Urine Urobilinogen Ur Leukocyte Esterase COVID-19 Eval Order SARS-CoV-2 (PCR) NEGATIVE Diagnostic Findings Chest X-Ray 04/19/21 12:19 SINGLE VIEW CHEST CLINICAL HISTORY: Sepsis. FINDINGS: 2 AP, portable, upright chest radiographs are compared to study dated 09/16/2019 and correlated with chest CT dated 11/23/2020. The heart is top normal for projection noting atherosclerotic calcification of the thoracic aorta. Findings of chronic interstitial lung disease and elevation of the right hemidiaphragm are similar to previous. Question superimposed airspace opacities in the right mid to lower lung. No large pleural effusion or pneumothorax is seen. The skeletal structures are osteopenic. The bony thorax is grossly intact. Cholecystectomy clips are noted in the right upper quadrant. IMPRESSION: 1. Changes of chronic interstitial lung disease are similar to previous. 2. Question superimposed airspace opacities in the right mid to lower lung. Correlate clinically for evidence of a superimposed infectious/inflammatory pneumonitis. ACT 112: Negative or not required by law. Electronically signed by: Zaid Nuno M.D. 04/19/2021 12:[address] 04/19/21 12:19 CT SCAN OF THE BRAIN WITHOUT IV CONTRAST CLINICAL HISTORY: Change in mental status. Dizziness. COMPARISON STUDY: CT of the brain dated 08/18/2018. TECHNIQUE: Unenhanced axial CT scan of the brain is performed from the vertex to the skull base. A dose lowering technique was utilized adhering to the principles of ALARA. CT DOSE: 746.71 mGy.cm FINDINGS: Brain parenchyma: There are age-related involutional changes noting moderate confluent subcortical and periventricular microangiopathic change. There is no hemorrhage, mass effect, or evidence of acute territorial ischemia by CT criteria. Chronic appearing infarcts are present within the thalami and basal ganglia. Long-white matter differentiation is preserved. No extra-axial fluid collection is seen. Ventricles, sulci, cisterns: Prominent secondary to involutional change. Intracranial vasculature: There is atherosclerotic calcification of the cavernous carotid and vertebral arteries. Calvarium: Unremarkable. Sinuses and mastoids: The visualized paranasal sinuses are clear. There is trace right mastoid effusion. The left mastoid air cells are well pneumatized. Orbits: The bony orbits are grossly intact. There are bilateral ocular lens implants. IMPRESSION: There is no hemorrhage, mass effect, or evidence of acute territorial ischemia by CT criteria. ACT 112: Negative or not required by law. Electronically signed by: Zaid Nuno M.D. 04/19/2021 12:49 PM Abdomen/Pelvis CT 04/19/21 16:[address] WITHOUT CONTRAST CT DOSE: 512.19 mGy.cm HISTORY: h/o kidney stones, confusion, emesis/umbilical pain TECHNIQUE: Multiaxial CT images of the abdomen and pelvis were performed without contrast. A dose lowering technique was utilized adhering to the principles of ALARA. COMPARISON STUDY: Abdomen and pelvis CT 02/25/2018. FINDINGS: Mild motion artifact results in suboptimal evaluation. Chronic fibrotic changes again noted at the lung bases. No pneumoperitoneum. No pneumatosis. No suspicious lytic or blastic osseous lesions. Hypodense lesions within the left hepatic lobe remains stable. These favor cysts. Cholecystectomy. The unenhanced spleen, adrenal glands, and pancreas are suboptimally assessed due to the motion artifact but appear grossly unremarkable. No retroperitoneal lymphadenopathy. Moderate calcified plaque within the normal caliber abdominal aorta. A few small bilateral renal calculi are noted. No ureteral stones. No hydronephrosis. Mild bladder wall thickening. There are few small bladder diverticula, unchanged. There is a 2 cm hypodense lesion within the lower pole of the left kidney. This is incompletely characterized on this noncontrast study but statistically represents a cyst. Small umbilical hernia containing a short segment of small bowel. This remains unchanged. Suboptimal evaluation for bowel pathology due to the lack of intravenous and oral contrast. However, there is no definite bowel wall thickening or obstruction. Normal appendix. The prostate gland is enlarged. IMPRESSION: 1. Motion artifact resulting in suboptimal evaluation. 2. Bilateral nephrolithiasis. No ureteral stones. No hydronephrosis. 3. Mild bladder wall thickening. This could be due to chronic outlet obstruction or a cystitis. Recommend correlation with urinalysis.. 4. No definite bowel wall thickening or obstruction. 5. Small umbilical hernia containing a short segment of small bowel. This remains unchanged. 6. Normal appendix. 7. Additional findings as described above. ACT 112: Negative or not required by law. Electronically signed by: Ede Ha M.D. 04/19/2021 5:50 PM EKG - NSR, 1st degree AV block, no ST changes Code Status & VTE Plan Code Status DNR/DNI VTE Prophylaxis Plan VTE Prophylaxis will be ordered: Yes PG Care Time/CCT Total # of Minutes Spent Total Time Spent with Patient: Total time spent is greater than 50% in coordination of care (as documented) at patient's floor/unit and/or counseling patient: Coding Level of Care Code 68456 Initial Inpt Care Lvl 3 Diagnoses SIRS (systemic inflammatory response syndrome) R65.10 Pneumonia J18.9 Metabolic encephalopathy G93.41 Chronic respiratory failure with hypoxia J96.11 Chronic interstitial lung disease J84.9 GERD (gastroesophageal reflux disease) K21.9 History of stroke Z86.73 Gait instability R26.81 History of ulcerative colitis Z87.19 Dysphagia R13.10 Hypokalemia E87.6 Hypomagnesemia E83.42 Nephrolithiasis N20.0 BPH (benign prostatic hyperplasia) N40.0 DVT prophylaxis Z29.9
--- NOTE | 2021-04-19 17:06 | Electrocardiogram Report ---
Test Reason : Blood Pressure : / mmHG Vent. Rate : 078 BPM Atrial Rate : 078 BPM P-R Int : 224 ms QRS Dur : 098 ms QT Int : 368 ms P-R-T Axes : 011 -42 077 degrees QTc Int : 419 ms Sinus rhythm with 1st degree A-V block Left axis deviation Abnormal ECG When compared with ECG of 16-SEP-2019 08:30, Premature atrial complexes are no longer Present Confirmed by Artem Shannon ([id number]) on 04/19/2021 5:05:49 PM Referred By: Confirmed By:Flex Shannon
--- NOTE | 2021-04-19 17:51 | CT Scan Report ---
ABDOMEN AND PELVIS CT WITHOUT CONTRAST CT DOSE: 512.19 mGy.cm HISTORY: h/o kidney stones, confusion, emesis/umbilical pain TECHNIQUE: Multiaxial CT images of the abdomen and pelvis were performed without contrast. A dose lo wering technique was utilized adhering to the principles of ALARA. COMPARISON STUDY: Abdomen and pelvis CT 02/25/2018. FINDINGS: Mild motion artifact results in suboptimal evaluation. Chronic fibrotic changes again noted at the lung bases. No pneumoperitoneum. No pneumatosis. No suspicious lytic or blastic osseous lesio ns. Hypodense lesions within the left hepatic lobe remains stable. These favor cysts. Cholecystectomy . The unenhanced spleen, adrenal glands, and pancreas are suboptimally assessed due to the motion art ifact but appear grossly unremarkable. No retroperitoneal lymphadenopathy. Moderate calcified plaque within the normal caliber abdominal aorta. A few small bilateral renal calculi are noted. No ureteral stones. No hydronephrosis. Mild bladder wall thickening. There are few small bladder diverticula, un changed. There is a 2 cm hypodense lesion within the lower pole of the left kidney. This is incomplet david characterized on this noncontrast study but statistically represents a cyst. Small umbilical chinmay ia containing a short segment of small bowel. This remains unchanged. Suboptimal evaluation for bowel pathology due to the lack of intravenous and oral contrast. However, there is no definite bowel wall thickening or obstruction. Normal appendix. The prostate gland is enlarged. IMPRESSION: 1. Motion artifact resulting in suboptimal evaluation. 2. Bilateral nephrolithiasis. No ureteral stones. No hydronephrosis. 3. Mild bladder wall thickening. This could be due to chronic outlet obstruction or a cystitis. Recom mend correlation with urinalysis.. 4. No definite bowel wall thickening or obstruction. 5. Small umbilical hernia containing a short segment of small bowel. This remains unchanged. 6. Normal appendix. 7. Additional findings as described above. ACT 112: Negative or not required by law. Electronically signed by: Ede Ha M.D. 04/19/2021 5:50 PM
[2021-04-19] MEDS ORDERED: ACETAMINOPHEN 325 MG TAB PO PRN (18:06)
[2021-04-19] MEDS ORDERED: ONDANSETRON INJ 2 MG/ML 2 ML VIAL IV PRN (18:06)
[2021-04-19] MEDS ORDERED: ALBUT/IPRATROP 3MG/0.5MG NEB 3 ML VIAL INH PRN (18:06)
[2021-04-19] MEDS: TAMSULOSIN HCL 0.4 MG CAP PO SCH (20:06)
[2021-04-19] MEDS: POTASSIUM CITRATE 10 MEQ TAB PO SCH (20:06)
[2021-04-19] MEDS: RIVAROXABAN 20 MG TAB PO SCH (20:06)
[2021-04-20 08:05] LABS: Basophils # (auto) 0.03 K/uL (0-0.2); Basophils % (auto) 0.5 %; Eosinophils # (auto) 0.23 K/uL (0-0.5); Eosinophils % (auto) 3.9 %; Hematocrit (blood only) 37.4 % (42-52); Hemoglobin 12.6 g/dL (14.0-18.0); Immature Granulocytes # (auto) 0.01 K/uL (0.00-0.02); Immature Granulocytes % (auto) 0.2 %; Lymphocytes # (auto) 1.69 K/uL (1.2-3.4); Mean Corpuscular Hemoglobin 28.8 pg (25-34); Mean Corpuscular Hgb Conc 33.7 g/dL (32-36); Mean Corpuscular Volume 85.4 fL (80-100); Mean Platelet Volume 10.4 fL (7.4-10.4); Monocytes # (auto) 0.72 K/uL (0.11-0.59); Monocytes % (auto) 12.3 %; Neutrophils # (auto) 3.15 K/uL (1.4-6.5); Neutrophils % (auto) 54.1 %; Platelet Count 145 K/uL (130-400); RDW Coefficient of Variation 14.3 % (11.5-14.5); RDW Standard Deviation 44.9 fL (36.4-46.3); Red Blood Count 4.38 M/uL (4.7-6.1); White Blood Count 5.83 K/uL (4.8-10.8)
[2021-04-20] MEDS: POTASSIUM CITRATE 10 MEQ TAB PO SCH ×3 (08:19→20:55)
[2021-04-20] MEDS: PANTOprazole 40 MG TAB PO SCH (08:20)
[2021-04-20] MEDS: cefTRIAXone SODIUM 2,000 MG in DEXTROSE 5% 50 ML IV SCH (08:20)
[2021-04-20] MEDS: CHOLECALCIFEROL 1,000 UNITS 25 MCG TAB PO SCH (08:20)
[2021-04-20] MEDS: FINASTERIDE 5 MG TAB PO SCH (08:20)
[2021-04-20 08:29] LABS: BUN Creatinine Ratio 10.5 (10-20); Calcium 8.7 mg/dl (8.5-10.1); Est GFR (African American) 58.9 ml/min; Est GFR (Non-African American) 50.8 ml/min; Magnesium 1.8 mg/dl (1.8-2.4); Potassium 3.5 mmol/L (3.5-5.1)
[2021-04-20] MEDS: DOXYCYCLINE HYCLATE 100 MG CAP PO SCH ×2 (10:08→20:55)
--- NOTE | 2021-04-20 15:27 | XRay Report ---
XR chest 2V PA/lateral CLINICAL HISTORY: ?right-sided pneumonia? COMPARISON STUDY: April 19, 2021 FINDINGS: No pneumothorax. No pleural effusion. Redemonstration of coarse reticular opacities in peripheral aspect of the right lung and within left base are again seen which appears slightly improved since prior likely due to difference in technique . Cardiomediastinal silhouette is stable. Aorta is calcified and tortuous. Right hilum is enlarged. No significant pulmonary vascular congestion.. Osseous structures: Degenerative changes of the spine. IMPRESSION: 1. Previously seen peripheral opacities within right lung appears slightly improved which could be d ue to difference in technique and might represent infiltrative process/pneumonia. ACT 112: Negative or not required by law. The above report was generated using voice recognition software. It may contain grammatical, syntax o r spelling errors. Electronically signed by: Amita Yip DO 04/20/2021 3:26 PM
--- NOTE | 2021-04-20 16:39 | Hospitalist Progress Note ---
Date of Service April 20, 2021 Assessment & Plan (1) SIRS (systemic inflammatory response syndrome): Given significant increase in sputum production and most likely increased infiltrate on right side on chest x-ray, source is pneumonia He also may have a component of sinusitis given copious sinus drainage and frontal pressure in the face He is at risk for pneumonia given his interstitial lung disease CT abdomen/pelvis obtained without acute findings procal is negative, and wbc count is normal. Repeat chest x-ray with increased infiltrate on the right He is feeling much improved and already has significantly reduced his sputum production Continue rocephin/doxy to cover for CAP which will also cover for sinusitis -Check CT of the sinuses follow cultures. (2) Pneumonia: ?RML/RLL on cxr As above obtain sputum culture as he endorses sputum production. patient choked on a bite of kristen davis before admission, and endorses dysphagia at home - will ask speech to see-they report no overt aspiration (3) Metabolic encephalopathy: has noted altered MS for 2-3 days in the context of his illness. He is now back to his baseline and is doing better likely metabolic due to underlying illness. supportive care. 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 on continuous NC O2 at home, although he is on room air here at times (5) Chronic interstitial lung disease: stable. doubt exacerbation of ILD at this time - defer on steroid therapy. nebs prn. (6) GERD (gastroesophageal reflux disease): PPI (7) History of stroke: noted cont xarelto - but no h/o a.fib to my knowledge. one stroke was hemorrhagic. but he had other strokes as well - presumed thrombotic? is not on asa or plavix. is not on statin therapy. (8) Gait instability: in the context of illness. Improved, worked with physical therapy today and recommended home (9) History of ulcerative colitis: in remission for many years/decades per patient colon appears normal on CT no diarrhea or other lower GI issues (10) Dysphagia: obtain speech eval due to prior strokes? esophageal issues? combo? Seen by speech therapy today-no overt aspiration Easy to chew diet (11) Hypokalemia: 2nd HCTZ Replaced potassium and magnesium and now resolved (12) Hypomagnesemia: 2nd HCTZ use Replaced and resolved hold HCTZ for now (13) Nephrolithiasis: history of such. CT today with quiescent kidney stones - nothing moving or in the ureter; no hydronephrosis. I assume he is on potassium citrate due to his kidney stones?? (14) BPH (benign prostatic hyperplasia): no issues cont flomax cont finasteride (15) DVT prophylaxis: gutierrezkimmy extensively updated at bedside Disposition-to home with possibly home health in the next 1 to 2 days if continues to improve Admission and Anticipated Discharge Date Admission Date: April 19, 2021 Subjective Patient reports he feels a "clicking" sensation across his forehead that comes and goes. He and his also complained that he has copious drainage of mucus from his nose on a daily basis, especially with being in the warm shower and with eating. He senses some pressure in the frontal region of the head. He also has been coughing up a ton of sputum but feels that overall he is improved today. He denies chest pain or shortness of breath. He had been weaned off oxygen by the time I saw him today. Telemetry with normal sinus rhythm and first-degree AV block, rates in the 60s with one 4-second pause overnight Review of Systems Review of Systems: All systems reviewed & are unremarkable except as noted in HPI & below is at the bedside and reports he is back to his baseline mental status Physical Exam Constitutional: WD/WN, vitals as above Eyes: PERRL, conjunctivae normal, anicteric sclerae Neck: trachea midline, no thyromegaly Respiratory: normal respiratory effort Auscultation: + crackles (Fine crackles at lower and middle lung pratt bilaterally); no rhonchi and no wheezes Cardiovascular: RRR, no murmur, no edema Chest (Breasts): Chest: normal inspection of chest Gastrointestinal (Abdomen): normal bowel sounds, soft, nontender, no hepatosplenomegaly Musculoskeletal: Extremities: extremities normal to inspection; no cyanosis and no clubbing Skin: no rashes, warm and dry Neurologic: moves all extremities and awake; no focal motor deficits Psychiatric: Orientation: alert, oriented to person, oriented to place and cooperative Lymphatic: no lymphedema Results & Data Results & Data ([facility]) Vital Signs (Past 12 Hours) Vital Signs Temp Pulse Pulse Resp BP Pulse Ox 04/20/21 15:00 36.4 C L 71 20 155/81 H 95 06/19/21 11:29 36.5 C 73 20 166/68 H 94 04/20/21 08:00 68 96 04/20/21 07:45 36.5 C 65 18 138/67 96 Laboratory Results 04/20/21 07:35 04/20/21 07:35 PG Care Time/CCT Total # of Minutes Spent Total Time Spent with Patient: Total time spent is greater than 50% in coordination of care (as documented) at patient's floor/unit and/or counseling patient: Coding Level of Care Code 11069 Subseq Hosp Care Lvl 3 Diagnoses SIRS (systemic inflammatory response syndrome) R65.10 Pneumonia J18.9 Metabolic encephalopathy G93.41 Chronic respiratory failure with hypoxia J96.11 Chronic interstitial lung disease J84.9 GERD (gastroesophageal reflux disease) K21.9 History of stroke Z86.73 Gait instability R26.81 History of ulcerative colitis Z87.19 Dysphagia R13.10 Hypokalemia E87.6 Hypomagnesemia E83.42 Nephrolithiasis N20.0 BPH (benign prostatic hyperplasia) N40.0 DVT prophylaxis Z29.9
[2021-04-20] MEDS: RIVAROXABAN 20 MG TAB PO SCH (19:36)
[2021-04-20] MEDS: TAMSULOSIN HCL 0.4 MG CAP PO SCH (20:55)
--- NOTE | 2021-04-20 21:42 | CT Scan Report ---
CT sinus wo con CLINICAL HISTORY: assess for acute sinusitis COMPARISON STUDY: None. TECHNIQUE: CT scan of the paranasal sinuses was performed in the axial plane. Coronal reconstructed images were obtained and reviewed. A dose lowering technique was utilized adhering to the principles of ALARA. CT DOSE: 606.00 mGy.cm FINDINGS: Small mucous polyp is seen within the right frontal sinus. Minimal partial opacification of the infer ior right mastoid air cells is seen. The rest of paranasal sinuses shows no evidence of mucoperiostea l thickening or air-fluid levels in the paranasal sinuses. Ethmoid infundibula and frontal recesses are patent. No bony abnormality is demonstrated. IMPRESSION: Small mucous polyp within the right frontal sinus. Minimal opacification of inferior right mastoid air cells which might represent inflammatory process. ACT 112: Negative or not required by law. The above report was generated using voice recognition software. It may contain grammatical, syntax o r spelling errors. Electronically signed by: Amita Yip DO 04/20/2021 9:41 PM
[2021-04-21 07:05] LABS: Basophils # (auto) 0.03 K/uL (0-0.2); Basophils % (auto) 0.5 %; Eosinophils # (auto) 0.25 K/uL (0-0.5); Eosinophils % (auto) 4.4 %; Hematocrit (blood only) 37.4 % (42-52); Hemoglobin 12.6 g/dL (14.0-18.0); Immature Granulocytes # (auto) 0.01 K/uL (0.00-0.02); Immature Granulocytes % (auto) 0.2 %; Lymphocytes # (auto) 1.42 K/uL (1.2-3.4); Lymphocytes % (auto) 24.9 %; Mean Corpuscular Hemoglobin 29.3 pg (25-34); Mean Corpuscular Hgb Conc 33.7 g/dL (32-36); Mean Platelet Volume 10.4 fL (7.4-10.4); Monocytes % (auto) 10.5 %; Neutrophils # (auto) 3.39 K/uL (1.4-6.5); Neutrophils % (auto) 59.5 %; Platelet Count 164 K/uL (130-400); RDW Coefficient of Variation 14.6 % (11.5-14.5); RDW Standard Deviation 46.4 fL (36.4-46.3)
[2021-04-21 07:47] LABS: BUN Creatinine Ratio 14.5 (10-20); Calcium 9.1 mg/dl (8.5-10.1); Creatinine Clr Calc Pharmacy 37.8 ml/min; Magnesium 1.8 mg/dl (1.8-2.4); Potassium 3.8 mmol/L (3.5-5.1)
[2021-04-21] MEDS: cefTRIAXone SODIUM 2,000 MG in DEXTROSE 5% 50 ML IV SCH (08:42)
[2021-04-21] MEDS: CHOLECALCIFEROL 1,000 UNITS 25 MCG TAB PO SCH (08:42)
[2021-04-21] MEDS: FINASTERIDE 5 MG TAB PO SCH (08:43)
[2021-04-21] MEDS: POTASSIUM CITRATE 10 MEQ TAB PO SCH ×2 (08:43→12:19)
[2021-04-21] MEDS: PANTOprazole 40 MG TAB PO SCH (08:43)
[2021-04-21] MEDS: DOXYCYCLINE HYCLATE 100 MG CAP PO SCH (09:29)
--- NOTE | 2021-04-21 15:01 | Discharge Summary ---
Date of Service April 21, 2021 Admission HPI Per Admitting Provider 86yo male with h/o chronic hypoxic respiratory failure on home o2 due to pulmonary fibrosis, prior PE, BPH, HTN, and strokes presents with his due to 3-4 days of feeling cold, weakness, unsteadiness on his feet, poor appetite (chronic, but acutely worse), episode of emesis at [facility] just prior to arrival at [facility], and cough productive of sputum (chronic per however). has noted some confusion starting about 2 days ago as well. Denies sick contacts or recent travel. No obvious COVID-19 exposures. mentioned that his "stomach was rolling" earlier today. When asked what that means she says "I could see his bowels moving under his skin." No vomiting. No diarrhea. No loss of taste or smell. No abdominal pain. Has chronic foul-smelling urine but no changes from baseline. He has not been vaccinated against COVID-19. Principal Diagnosis Community acquired pneumonia Discharge Exam Constitutional WD/WN, vitals as above Eyes + anicteric sclerae Neck trachea midline, no thyromegaly Respiratory normal respiratory effort Auscultation: + crackles (Fine crackles at lower and middle lung pratt bilaterally); no rhonchi and no wheezes Cardiovascular RRR, no murmur, no edema Chest (Breasts) Chest: normal inspection of chest Gastrointestinal (Abdomen) normal bowel sounds, soft, nontender, no hepatosplenomegaly Musculoskeletal Extremities: extremities normal to inspection; no cyanosis and no clubbing Skin no rashes, warm and dry Neurologic moves all extremities and awake; no focal motor deficits Psychiatric Orientation: alert, oriented to person, oriented to place and cooperative Lymphatic no lymphedema Discharge Data Allergies Allergy/AdvReac Type Severity Reaction Status Date / Time fluticasone [From Flonase] Allergy Unknown Unknown Verified 04/19/21 14:22 Consultations 04/19/21 15:17 ED Decision to Admit Stat Ordered Studies 04/19/21 12:19 CT head/brain wo con Stat 04/19/21 16:08 CT abd pelvis wo con Stat 04/20/21 16:38 CT sinus wo con Routine Chest X-Ray 04/19/21 12:19 SINGLE VIEW CHEST CLINICAL HISTORY: Sepsis. FINDINGS: 2 AP, portable, upright chest radiographs are compared to study dated 09/16/2019 and correlated with chest CT dated 11/23/2020. The heart is top normal for projection noting atherosclerotic calcification of the thoracic aorta. Findings of chronic interstitial lung disease and elevation of the right hemidiaphragm are similar to previous. Question superimposed airspace opacities in the right mid to lower lung. No large pleural effusion or pneumothorax is seen. The skeletal structures are osteopenic. The bony thorax is grossly intact. Cholecystectomy clips are noted in the right upper quadrant. IMPRESSION: 1. Changes of chronic interstitial lung disease are similar to previous. 2. Question superimposed airspace opacities in the right mid to lower lung. Correlate clinically for evidence of a superimposed infectious/inflammatory pneumonitis. ACT 112: Negative or not required by law. Electronically signed by: Zaid Nuno M.D. 04/19/2021 12:[address] 04/19/21 12:19 CT SCAN OF THE BRAIN WITHOUT IV CONTRAST CLINICAL HISTORY: Change in mental status. Dizziness. COMPARISON STUDY: CT of the brain dated 08/18/2018. TECHNIQUE: Unenhanced axial CT scan of the brain is performed from the vertex to the skull base. A dose lowering technique was utilized adhering to the principles of ALARA. CT DOSE: 746.71 mGy.cm FINDINGS: Brain parenchyma: There are age-related involutional changes noting moderate confluent subcortical and periventricular microangiopathic change. There is no hemorrhage, mass effect, or evidence of acute territorial ischemia by CT criteria. Chronic appearing infarcts are present within the thalami and basal ganglia. Long-white matter differentiation is preserved. No extra-axial fluid collection is seen. Ventricles, sulci, cisterns: Prominent secondary to involutional change. Intracranial vasculature: There is atherosclerotic calcification of the cavernous carotid and vertebral arteries. Calvarium: Unremarkable. Sinuses and mastoids: The visualized paranasal sinuses are clear. There is trace right mastoid effusion. The left mastoid air cells are well pneumatized. Orbits: The bony orbits are grossly intact. There are bilateral ocular lens implants. IMPRESSION: There is no hemorrhage, mass effect, or evidence of acute territorial ischemia by CT criteria. ACT 112: Negative or not required by law. Electronically signed by: Zaid Nuno M.D. 04/19/2021 12:49 PM Abdomen/Pelvis CT 04/19/21 16:[address] WITHOUT CONTRAST CT DOSE: 512.19 mGy.cm HISTORY: h/o kidney stones, confusion, emesis/umbilical pain TECHNIQUE: Multiaxial CT images of the abdomen and pelvis were performed without contrast. A dose lowering technique was utilized adhering to the principles of ALARA. COMPARISON STUDY: Abdomen and pelvis CT 02/25/2018. FINDINGS: Mild motion artifact results in suboptimal evaluation. Chronic fibrotic changes again noted at the lung bases. No pneumoperitoneum. No pneumatosis. No suspicious lytic or blastic osseous lesions. Hypodense lesions within the left hepatic lobe remains stable. These favor cysts. Cholecystectomy. The unenhanced spleen, adrenal glands, and pancreas are suboptimally assessed due to the motion artifact but appear grossly unremarkable. No retroperitoneal lymphadenopathy. Moderate calcified plaque within the normal caliber abdominal aorta. A few small bilateral renal calculi are noted. No ureteral stones. No hydronephrosis. Mild bladder wall thickening. There are few small bladder diverticula, unchanged. There is a 2 cm hypodense lesion within the lower pole of the left kidney. This is incompletely characterized on this noncontrast study but statistically represents a cyst. Small umbilical hernia containing a short segment of small bowel. This remains unchanged. Suboptimal evaluation for bowel pathology due to the lack of intravenous and oral contrast. However, there is no definite bowel wall thickening or obstruction. Normal appendix. The prostate gland is enlarged. IMPRESSION: 1. Motion artifact resulting in suboptimal evaluation. 2. Bilateral nephrolithiasis. No ureteral stones. No hydronephrosis. 3. Mild bladder wall thickening. This could be due to chronic outlet obstruction or a cystitis. Recommend correlation with urinalysis.. 4. No definite bowel wall thickening or obstruction. 5. Small umbilical hernia containing a short segment of small bowel. This remains unchanged. 6. Normal appendix. 7. Additional findings as described above. ACT 112: Negative or not required by law. Electronically signed by: Ede Ha M.D. 04/19/2021 5:50 PM Chest X-Ray 04/20/21 07:00 XR chest 2V PA/lateral CLINICAL HISTORY: ?right-sided pneumonia? COMPARISON STUDY: April 19, 2021 FINDINGS: No pneumothorax. No pleural effusion. Redemonstration of coarse reticular opacities in peripheral aspect of the right lung and within left base are again seen which appears slightly improved since prior likely due to difference in technique. Cardiomediastinal silhouette is stable. Aorta is calcified and tortuous. Right hilum is enlarged. No significant pulmonary vascular congestion.. Osseous structures: Degenerative changes of the spine. IMPRESSION: 1. Previously seen peripheral opacities within right lung appears slightly improved which could be due to difference in technique and might represent infiltrative process/pneumonia. ACT 112: Negative or not required by law. The above report was generated using voice recognition software. It may contain grammatical, syntax or spelling errors. Electronically signed by: Amita Yip DO 04/20/2021 3:[address] 04/20/21 16:38 CT sinus wo con CLINICAL HISTORY: assess for acute sinusitis COMPARISON STUDY: None. TECHNIQUE: CT scan of the paranasal sinuses was performed in the axial plane. Coronal reconstructed images were obtained and reviewed. A dose lowering technique was utilized adhering to the principles of ALARA. CT DOSE: 606.00 mGy.cm FINDINGS: Small mucous polyp is seen within the right frontal sinus. Minimal partial opacification of the inferior right mastoid air cells is seen. The rest of paranasal sinuses shows no evidence of mucoperiosteal thickening or air-fluid levels in the paranasal sinuses. Ethmoid infundibula and frontal recesses are patent. No bony abnormality is demonstrated. IMPRESSION: Small mucous polyp within the right frontal sinus. Minimal opacification of inferior right mastoid air cells which might represent inflammatory process. ACT 112: Negative or not required by law. The above report was generated using voice recognition software. It may contain grammatical, syntax or spelling errors. Electronically signed by: Amita Yip DO 04/20/2021 9:41 PM Hospital Course (1) SIRS (systemic inflammatory response syndrome): Sepsis, POA secondary to PNA Given significant increase in sputum production and most likely increased i nfiltrate on right side on chest x-ray, source is pneumonia He also may have a component of sinusitis given copious sinus drainage and frontal pressure in the face although sinus CT negative for sinusitis He is at risk for pneumonia given his interstitial lung disease CT abdomen/pelvis obtained without acute findings procal is negative, and wbc count is normal. Repeat chest x-ray with increased infiltrate on the right He is feeling much improved and already has significantly reduced his sputum production after treatment with Rocephin and doxy dc to home on cefdinir and doxy to complete a 7 day course (2) Pneumonia: RML/RLL on cxr As above patient choked on a bite of kristen davis before admission, and endorses dysphagia at home - will ask speech to see-they report no overt aspiration (3) Metabolic encephalopathy: has noted altered MS for 2-3 days in the context of his illness. He is now back to his baseline and is doing better likely metabolic due to underlying illness. supportive care. 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 on nocturnal NC O2 at home, on room air here (5) Chronic interstitial lung disease: stable. doubt exacerbation of ILD at this time - defer on steroid therapy. nebs prn. f/u with PULM (6) GERD (gastroesophageal reflux disease): PPI (7) History of stroke: noted cont xarelto - but no h/o a.fib to my knowledge. one stroke was hemorrhagic. but he had other strokes as well - presumed thrombotic? is not on asa or plavix. is not on statin therapy. (8) Gait instability: in the context of illness. Improved, worked with physical therapy and recommended home (9) History of ulcerative colitis: in remission for many years/decades per patient colon appears normal on CT no diarrhea or other lower GI issues (10) Dysphagia: obtain speech eval due to prior strokes? esophageal issues? combo? Seen by speech therapy here-no overt aspiration Easy to chew diet (11) Hypokalemia: 2nd HCTZ Replaced potassium and magnesium and now resolved follow BMP as outpt (12) Hypomagnesemia: 2nd HCTZ use Replaced and resolved (13) Nephrolithiasis: history of such. CT today with quiescent kidney stones - nothing moving or in the ureter; no hydronephrosis. I assume he is on potassium citrate due to his kidney stones?? (14) BPH (benign prostatic hyperplasia): no issues cont flomax cont finasteride (15) DVT prophylaxis: xarelto extensively updated at bedside Disposition-to home today Total Time Total Time Spent Total Time Spent (In Minutes): 35 min Total Time Includes: Examination of the Patient, Discharge Planning and Medication Reconciliation Discharge Plan Discharge Items Patient Disposition: Home - Self-Care Reason For Visit: SIRS, ALTERED MENTAL STATUS Discharge Diagnosis: Pneumonia Condition on Discharge: Good Activity: Resume your previous activity Non-emergency contact: Primary Care Provider and Exercise Specialist Call non-emergency contact if: your symptoms worsen Follow-up/Referrals: Srikanth Burnette PA-C [Physician Rn Cardiac Rehab] - (Please follow up within 2 weeks.) Gideon Trejo [Primary Care Provider] - Cesar Adams MD [Resident] - (Follow up within 1-2 weeks.) Diet: Heart Healthy Addtl Attending Provider Instructions: Please finish out the course of antibiotics for your pneumonia. Follow up with your PCP within 1-2 weeks. Pending Studies at Discharge: Yes Stand-Alone Forms: My [facility] Medications and DC Order Prescriptions: New doxycycline hyclate 100 mg Capsule 100 mg PO BID Qty: 10 RF: 0 cefdinir 300 mg capsule 300 mg PO BID 5 Days Qty: 10 RF: 0 Continued Xarelto 20 mg tablet 20 mg PO DAILY@1900 RF: 0 ipratropium-albuterol 0.5 mg-3 mg(2.5 mg base)/3 mL solution for nebulization 3 ml INHALATION BID PRN (Reason: Shortness Of Breath) Qty: 540 RF: 1 potassium citrate 10 mEq (1,080 mg) tablet extended release 10 meq PO TID Qty: 270 RF: 3 omeprazole 20 mg capsule,delayed release(DR/EC) 20 mg PO QAM Qty: 90 RF: 3 finasteride [Proscar] 5 mg tablet 5 mg PO QAM Qty: 90 RF: 3 (DME) Oxygen Home Liters Per Minute See Dose Instructions .ROUTE .MEDSUPPLY Qty: 1 RF: 0 cholecalciferol (vitamin D3) [Vitamin D3] 50 mcg (2,000 unit) Capsule 50 mcg PO QAM RF: 0 Balance Of Nature Vitamins 4 cap PO QDL RF: 0 tamsulosin [Flomax] 0.4 mg capsule 0.4 mg PO HS RF: 0 hydrochlorothiazide 12.5 mg capsule 12.5 mg PO HS RF: 0 Discharge Orders: Discharge Order (Routine); Ordered 04/21/21 Ordered By: Damaris Dave Admission Data Admit Date/Time: 04/19/21 16:16 Attending Provider: Damaris Dave Admit Provider: Rajendra Morin Primary Care Provider: Gideon Trejo Other Providers: Rajendra Morin Coding Level of Care Code D/C Day Management >30 mins Diagnoses SIRS (systemic inflammatory response syndrome) R65.10 Pneumonia J18.9 Metabolic encephalopathy G93.41 Chronic respiratory failure with hypoxia J96.11 Chronic interstitial lung disease J84.9 GERD (gastroesophageal reflux disease) K21.9 History of stroke Z86.73 Gait instability R26.81 History of ulcerative colitis Z87.19 Dysphagia R13.10 Hypokalemia E87.6 Hypomagnesemia E83.42 Nephrolithiasis N20.0 BPH (benign prostatic hyperplasia) N40.0 DVT prophylaxis Z29.9
== END 2021-04-21 15:53 | disposition home or self-care (01) | DRG 871 ==
LOC: ED 11:58 → SUATTDRO 16:16 → 2N 16:16

== ENCOUNTER 2022-10-27 13:19 | Inpatient (IN) ==
--- NOTE | 2022-10-27 13:35 | CT Scan Report ---
CT head/brain wo con CLINICAL HISTORY: neuro deficit, acute stroke suspected Technique: Contiguous axial CT images of the head were acquired from the base of the skull to the tiffany keesha without intravenous contrast administration. Images were viewed in brain, subdural and bone [facility]. Automated dose lowering techniques and/or adjustment according to patient size were utilized for this exam. Comparison: Comparison is made to CT head 04/17/2022 Findings: Areas of decreased attenuation are present in the periventricular and subcortical white matter bilate rally consistent with small vessel ischemic disease. Generalized cerebral atrophy with commensurate e nlargement of the ventricles, sulci, and cisterns is also present. There is no acute intracranial hem orrhage or evidence of acute territorial infarction. No shift of the midline structures, mass effect, or extra-axial abnormalities are shown. Atherosclerotic calcifications are present in the intracran ial segments of the internal carotid arteries. There is a hypodensity in the left basal ganglia which was not seen on prior exam. Imaged portions of the paranasal sinuses and mastoid air cells are clear. The orbits appear normal. There are no acute fractures of the calvaria or scalp swelling. Impression: Hypodensity in the left basal ganglia represent an age-indeterminate lacunar infarct which was new fr om exam of April this year. Otherwise no acute abnormality is seen. There is no evidence of intracrani al hemorrhage. ACT 112: Negative or not required by law. Electronically signed by: Andrez Palacio M.D. 10/27/2022 1:33 PM
[2022-10-27 14:01] LABS: Basophils # (auto) 0.06 K/uL (0-0.2); Basophils % (auto) 0.9 %; Eosinophils # (auto) 0.16 K/uL (0-0.50); Eosinophils % (auto) 2.3 %; Hematocrit (blood only) 42.2 % (40.1-51.0); Hemoglobin 14.1 g/dl (14.0-18.0); Immature Granulocytes # (auto) 0.01 K/uL (0.00-0.02); Immature Granulocytes % (auto) 0.1 %; Lymphocytes # (auto) 2.01 K/uL (1.2-3.4); Mean Corpuscular Hemoglobin 29.4 pg (25.0-34.0); Mean Corpuscular Hgb Conc 33.4 g/dL (32.0-36.0); Mean Corpuscular Volume 88.1 fL (80.0-100.0); Mean Platelet Volume 10.2 fL (9.4-12.4); Monocytes # (auto) 0.57 K/uL (0.24-0.82); Monocytes % (auto) 8.2 %; Neutrophils # (auto) 4.11 K/uL (1.4-6.5); Neutrophils % (auto) 59.5 %; Platelet Count 174 K/uL (130-400); RDW Coefficient of Variation 14.6 % (11.5-14.5); RDW Standard Deviation 46.8 fL (36.4-46.3); Red Blood Count 4.79 M/uL (4.63-6.08); White Blood Count 6.92 K/ul (4.8-10.8)
[2022-10-27 14:03] LABS: iSTAT Creatinine 1.7 mg/dl (0.6-1.3); iSTAT Hemoglobin 14.3 g/dl (14.0-18.0); iSTAT Ionized Calcium 1.2 mmol/l (1.12-1.32)
--- NOTE | 2022-10-27 14:03 | XRay Report ---
XR chest 1V portable CLINICAL HISTORY: stroke TECHNIQUE: Single frontal radiograph of the chest was obtained. Comparison: Comparison is made to chest radiograph 04/17/[address] abdomen pelvis 04/19/2021 FINDINGS: No lines and tubes are seen. Calcified aortic knob is seen. Reticular interstitial opacities are seen . No evidence of pleural effusion or pneumothorax. IMPRESSION: Interstitial opacities are seen, right greater than left. These are overall similar to prior exam. No superimposed airspace disease is seen. ACT 112: Negative or not required by law. Electronically signed by: Andrez Palacio M.D. 10/27/2022 2:02 PM
--- NOTE | 2022-10-27 14:06 | Emergency Department Note ---
Impression & Plan AMS (altered mental status), History of stroke, CKD (chronic kidney disease), Slurring of speech, FPC (current) use of anticoagulants ED Provider Note Provider: Moose Aden MD DATE OF SERVICE: 10/27/2022 CHIEF COMPLAINT: Altered mental status HISTORY OF PRESENT ILLNESS: Patient is a 87-year-old gentleman history of CKD, multiple strokes in the past, chronic anticoagulation with Xarelto presenting here today after an episode occurring around 1215 this afternoon. Patient evidently was with who takes good care of him at home. She was finishing helping him bathe and helped him to the toilet. The patient then stared off and would respond he was holding tightly onto the cold bars in the bathroom. At the time of EMS arrival, the patient would follow some simple commands but would not speak initially. Upon arrival here the patient has improved according to EMS. No falls or seizure-like activity reported. No recent illness. No recent illnesses reported. Patient upon arrival here answer some questions. Denies any pain. Follows simple commands. REVIEW OF SYSTEMS: Limited secondary initially to his speech issues. PAST MEDICAL HISTORY: As noted above MEDICATIONS: Reviewed home medications and took Xarelto last yesterday SOCIAL HISTORY: Lives at home with PHYSICAL EXAM: GENERAL: alert and oriented in no acute distress on stretcher Head: normocephalic and atraumatic EYES: No injection, discharge or icterus. PERRL, EOMI. NECK: Trachea midline. Supple. ENT: Mucous membranes pink and moist. LUNGS: Airway patent. No retractions. Breath sounds clear HEART: Regular rate and rhythm. No chest wall tenderness ABDOMEN: Soft and non-tender, without guarding or rebound. SKIN: Acyanotic, warm, dry, without rashes EXTREMITIES: Without swelling, tenderness or deformity with some slight erythema around the cuticle nail of the left great toe but no fluctuance. NEUROLOGICAL: No facial droop. Some slight aphasia and slurred speech. No pronator drift. No drift on leg raise. Moving all extremities to command. Verbally but slow to answer again. EK bpm sinus rhythm with first-degree AV block. No acute ST segment elevation or depression. QTc 434. Left axis. CONTINUOUS CARDIAC MONITORING: was ordered and showed a heart rate of 80s-90s bpm in first-degree AV block Patient's laboratory studies and imaging reviewed. Differential includes Infection, dehydration, metabolic abnormality, hypo/hyperglycemia, electrolyte disturbance, anemia, hypoxia, cardiac sources, intracerebral event, toxicologic, neurologic, as well as other pathologies. IMPRESSION/MEDICAL DECISION MAKING: Given patient's initial complaint of altered mental status with history of CVA initially sent directly to CT scan. Noncontrast CT scan completed without evidence of acute intracranial bleed. Patient is on Xarelto according to however is not a thrombolytic candidate. Given his history of CKD renal function was checked and CT angiograms were completed. Per radiology report there is no evidence again of any acute intracranial bleed or acute vascular abnormality. Basic blood work obtained without significant abnormality with baseline CKD. No recent illnesses. Could possibly represent seizures a history of old CVAs. CT scan questions and age-indeterminate lacunar infarct since April but would expect within 90 minutes to see a CT change already on imaging from onset of symptoms. Moving all extremities likely. Speech improves during his time here. Will bring to the hospital for further neurological evaluation as he is still not back to baseline. Question CVA/stroke. DIAGNOSIS: Altered mental status, slurred speech DISPOSITION: Hospitalist will evaluate Patient and family were updated and agreeable with this plan. 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 Nocturia On home oxygen therapy 2L/MIN NC HS Restrictive lung disease Stroke HX X 3-2009,2010 AND 08/18/2018 (LAST ONE [facility]) Ulcerative colitis HX Urgency of urination Weakness RIGHT SIDED WEAKNESS Surgical History H/O cataract removal with insertion of prosthetic lens R/L H/O lithotripsy History of bronchoscopy History of cholecystectomy History of colonoscopy Hx of hernia repair S/P cystoscopy with ureteral stent placement Family History Mother Stroke Father Myocardial infarction Sister Family history of diabetes mellitus Myocardial infarction Sister Pulmonary embolism Social History Smoking Status: Former smoker Second Hand Exposure: No; Hx Alcohol Use: No Hx Substance Use: No Preferred Language: Nepali Communication Ability: Effective Visual Impairment: No Limitations Size Marker Required: No Beliefs That Will Affect Care: None marital status: Current Living Situation: Spouse current occupational status: retired 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65, 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[employer], 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[employer]) How many Children do You have: 1 How many Children do You have Comment: daughter, [place] Feels Safe at Home: Yes Assistive Devices: Walker Allergies Allergies Allergy/AdvReac Type Severity Reaction Status Date / Time fluticasone [From Flonase] Allergy Unknown Unknown Verified 10/27/22 15:26 Home Meds Home Medications Medication Instructions Recorded Confirmed rivaroxaban 20 mg tablet (Xarelto) 20 mg PO DAILY@1900 02/14/20 10/27/22 Balance Of Nature Vitamins 4 cap PO QDL 04/19/21 10/27/22 cholecalciferol (vitamin D3) 50 100 mcg PO QAM 07/19/21 10/27/22 mcg (2,000 unit) capsule (Vitamin D3) irbesartan 150 1 tab PO DAILY 10/27/22 10/27/22 mg-hydrochlorothiazide 12.5 mg tablet omeprazole 20 mg capsule,delayed 20 mg PO QAM 10/27/22 10/27/22 release Previous Rx's Medication Instructions Recorded hydrochlorothiazide 12.5 mg capsule 12.5 mg PO HS #90 caps 07/09/21 ipratropium 0.5 mg-albuterol 3 mg 3 ml inhalation BID PRN Shortness 09/30/21 (2.5 mg base)/3 mL nebulization Of Breath #540 mL soln potassium citrate 10 mEq (1,080 10 meq PO TID #270 tabs 09/30/21 mg) tablet,extended release finasteride 5 mg tablet (Proscar) 5 mg PO DAILY #90 tabs 03/11/22 tamsulosin 0.4 mg capsule (Flomax) 0.4 mg PO DAILY #90 caps 03/11/22 fluticasone furoate 100 1 inh inhalation DAILY #60 ea 08/14/22 mcg-vilanterol 25 mcg/dose inhalation powder (Breo Ellipta) Results & Data (ED) Vital Signs Vital Signs - 24 hr 10/27/22 13:45 10/27/22 13:45 10/27/22 13:45 Temperature 37.0 C Temperature Source Oral Pulse Rate 77 Pulse Rate [Apical] Respiratory Rate 16 16 Blood Pressure 172/111 H Blood Pressure [Left Arm] 172/111 H Blood Pressure Mean 131 Blood Pressure Mean [Left Arm] 131 Pulse Oximetry 94 95 Oxygen Delivery Method Room Air Sepsis Recent Fever Within 48 Hours No Sepsis New/Unexplained Change in Mental Status N/A Sepsis Action Taken by Nursing No Action Required 10/27/22 15:06 Temperature Temperature Source Pulse Rate Pulse Rate [Apical] 86 Respiratory Rate 16 Blood Pressure Blood Pressure [Left Arm] 165/92 H Blood Pressure Mean Blood Pressure Mean [Left Arm] 116 Pulse Oximetry 95 Oxygen Delivery Method Sepsis Recent Fever Within 48 Hours Sepsis New/Unexplained Change in Mental Status Sepsis Action Taken by Nursing Laboratory Data Result diagrams: 10/27/22 13:36 10/27/22 13:36 Lab Results 10/27/22 10/27/22 10/27/22 Range/Units 13:36 13:36 13:36 WBC 6.92 (4.8-10.8) K/ul RBC 4.79 (4.63-6.08) M/uL Hgb 14.1 (14.0-18.0) g/dl POC Hgb (14.0-18.0) g/dl Hct 42.2 (40.1-51.0) % POC Hct (42-52) % MCV 88.1 (80.0-100.0) fL MCH 29.4 (25.0-34.0) pg MCHC 33.4 (32.0-36.0) g/dL RDW Std Deviation 46.8 H (36.4-46.3) fL RDW Coeff of Luisito 14.6 H (11.5-14.5) % Plt Count 174 (130-400) K/uL MPV 10.2 (9.4-12.4) fL Immature Gran % (Auto) 0.1 % Neut % (Auto) 59.5 % Lymph % (Auto) 29.0 % Miner % (Auto) 8.2 % Eos % (Auto) 2.3 % Baso % (Auto) 0.9 % Neut # (Auto) 4.11 (1.4-6.5) K/uL Lymph # (Auto) 2.01 (1.2-3.4) K/uL Miner # (Auto) 0.57 (0.24-0.82) K/uL Eos # (Auto) 0.16 (0-0.50) K/uL Baso # (Auto) 0.06 (0-0.2) K/uL Immature Gran # (Auto) 0.01 (0.00-0.02) K/uL PT 13.0 H (9.0-12.0) Seconds INR 1.2 H (0.9-1.1) APTT 34.4 H (21.0-31.0) Seconds PTT Ratio 1.3 POC Sodium (135-144) mmol/L Sodium (136-145) mmol/L POC Potassium (3.3-5.0) mmol/L Potassium (3.5-5.1) mmol/L POC Chloride (101-112) mmol/L Chloride (98-107) mmol/L Carbon Dioxide (21-32) mmol/L POC Total CO2 (24-31) mmol/L Anion Gap (3-11) POC Anion Gap (16-25) mmol/L POC BUN (7-18) mg/dl BUN (6-23) mg/dl Creatinine (0.6-1.4) mg/dl POC Creatinine (0.6-1.3) mg/dl Est Cr Clr Drug Dosing ml/min Est GFR ( Amer) ml/min Est GFR (Non-Af Amer) ml/min BUN/Creatinine Ratio (10-20) Glucose (70-99(Fasting)) mg/dl POC Glucose (other) (70-99) mg/dl Lactate (0.4-2.0) mmol/L Calcium (8.5-10.1) mg/dl POC Ioniz Calcium Tara (1.12-1.32) mmol/l Magnesium (1.7-2.4) mg/dl Total Bilirubin (0.2-1.0) mg/dl AST (13-39) U/L ALT (7-52) U/L Alkaline Phosphatase (34-104) U/L Troponin I High Sens (0-20) pg/ml Total Protein (6.0-8.3) gm/dl Albumin (3.4-5.0) gm/dl Globulin (2.5-4.0) gm/dl Albumin/Globulin Ratio (0.9-2) Urine Color Urine Appearance (Clear) Urine pH (4.5-7.5) Ur Specific [place] (1.000-1.030) Urine Protein (Negative) Urine Glucose (UA) (Negative) Urine Ketones (Negative) Urine Blood (Negative) Urine Nitrite (Negative) Urine Bilirubin (Negative) Urine Urobilinogen (Negative) Ur Leukocyte Esterase (Negative) SARS-CoV-2, RNA, NAAT (NEGATIVE) Blood Type A Positive Antibody Screen NEGATIVE 10/27/22 10/27/22 10/27/22 Range/Units 13:36 13:36 13:50 WBC (4.8-10.8) K/ul RBC (4.63-6.08) M/uL Hgb (14.0-18.0) g/dl POC Hgb 14.3 (14.0-18.0) g/dl Hct (40.1-51.0) % POC Hct 42 (42-52) % MCV (80.0-100.0) fL MCH (25.0-34.0) pg MCHC (32.0-36.0) g/dL RDW Std Deviation (36.4-46.3) fL RDW Coeff of Luisito (11.5-14.5) % Plt Count (130-400) K/uL MPV (9.4-12.4) fL Immature Gran % (Auto) % Neut % (Auto) % Lymph % (Auto) % Miner % (Auto) % Eos % (Auto) % Baso % (Auto) % Neut # (Auto) (1.4-6.5) K/uL Lymph # (Auto) (1.2-3.4) K/uL Miner # (Auto) (0.24-0.82) K/uL Eos # (Auto) (0-0.50) K/uL Baso # (Auto) (0-0.2) K/uL Immature Gran # (Auto) (0.00-0.02) K/uL PT (9.0-12.0) Seconds INR (0.9-1.1) APTT (21.0-31.0) Seconds PTT Ratio POC Sodium 144 (135-144) mmol/L Sodium 143 (136-145) mmol/L POC Potassium 4.0 (3.3-5.0) mmol/L Potassium 4.0 (3.5-5.1) mmol/L POC Chloride 101 (101-112) mmol/L Chloride 104 (98-107) mmol/L Carbon Dioxide 35 H (21-32) mmol/L POC Total CO2 33 H (24-31) mmol/L Anion Gap 4 (3-11) POC Anion Gap 15.0 L (16-25) mmol/L POC BUN 22 H (7-18) mg/dl BUN 22 (6-23) mg/dl Creatinine 1.50 H (0.6-1.4) mg/dl POC Creatinine 1.7 H (0.6-1.3) mg/dl Est Cr Clr Drug Dosing 35.6 ml/min Est GFR ( Amer) 47.8 ml/min Est GFR (Non-Af Amer) 41.3 ml/min BUN/Creatinine Ratio 14.7 (10-20) Glucose 91 (70-99(Fasting)) mg/dl POC Glucose (other) 92 (70-99) mg/dl Lactate 1.4 (0.4-2.0) mmol/L Calcium 9.5 (8.5-10.1) mg/dl POC Ioniz Calcium Tara 1.20 (1.12-1.32) mmol/l Magnesium 1.8 (1.7-2.4) mg/dl Total Bilirubin 0.6 (0.2-1.0) mg/dl AST 16 (13-39) U/L ALT 12 (7-52) U/L Alkaline Phosphatase 54 (34-104) U/L Troponin I High Sens 6.2 (0-20) pg/ml Total Protein 7.8 (6.0-8.3) gm/dl Albumin 3.8 (3.4-5.0) gm/dl Globulin 4.0 (2.5-4.0) gm/dl Albumin/Globulin Ratio 1.0 (0.9-2) Urine Color Urine Appearance (Clear) Urine pH (4.5-7.5) Ur Specific [place] (1.000-1.030) Urine Protein (Negative) Urine Glucose (UA) (Negative) Urine Ketones (Negative) Urine Blood (Negative) Urine Nitrite (Negative) Urine Bilirubin (Negative) Urine Urobilinogen (Negative) Ur Leukocyte Esterase (Negative) SARS-CoV-2, RNA, NAAT (NEGATIVE) Blood Type Antibody Screen 10/27/22 10/27/22 Range/Units 14:30 15:26 WBC (4.8-10.8) K/ul RBC (4.63-6.08) M/uL Hgb (14.0-18.0) g/dl POC Hgb (14.0-18.0) g/dl Hct (40.1-51.0) % POC Hct (42-52) % MCV (80.0-100.0) fL MCH (25.0-34.0) pg MCHC (32.0-36.0) g/dL RDW Std Deviation (36.4-46.3) fL RDW Coeff of Luisito (11.5-14.5) % Plt Count (130-400) K/uL MPV (9.4-12.4) fL Immature Gran % (Auto) % Neut % (Auto) % Lymph % (Auto) % Miner % (Auto) % Eos % (Auto) % Baso % (Auto) % Neut # (Auto) (1.4-6.5) K/uL Lymph # (Auto) (1.2-3.4) K/uL Miner # (Auto) (0.24-0.82) K/uL Eos # (Auto) (0-0.50) K/uL Baso # (Auto) (0-0.2) K/uL Immature Gran # (Auto) (0.00-0.02) K/uL PT (9.0-12.0) Seconds INR (0.9-1.1) APTT (21.0-31.0) Seconds PTT Ratio POC Sodium (135-144) mmol/L Sodium (136-145) mmol/L POC Potassium (3.3-5.0) mmol/L Potassium (3.5-5.1) mmol/L POC Chloride (101-112) mmol/L Chloride (98-107) mmol/L Carbon Dioxide (21-32) mmol/L POC Total CO2 (24-31) mmol/L Anion Gap (3-11) POC Anion Gap (16-25) mmol/L POC BUN (7-18) mg/dl BUN (6-23) mg/dl Creatinine (0.6-1.4) mg/dl POC Creatinine (0.6-1.3) mg/dl Est Cr Clr Drug Dosing ml/min Est GFR ( Amer) ml/min Est GFR (Non-Af Amer) ml/min BUN/Creatinine Ratio (10-20) Glucose (70-99(Fasting)) mg/dl POC Glucose (other) (70-99) mg/dl Lactate (0.4-2.0) mmol/L Calcium (8.5-10.1) mg/dl POC Ioniz Calcium Tara (1.12-1.32) mmol/l Magnesium (1.7-2.4) mg/dl Total Bilirubin (0.2-1.0) mg/dl AST (13-39) U/L ALT (7-52) U/L Alkaline Phosphatase (34-104) U/L Troponin I High Sens (0-20) pg/ml Total Protein (6.0-8.3) gm/dl Albumin (3.4-5.0) gm/dl Globulin (2.5-4.0) gm/dl Albumin/Globulin Ratio (0.9-2) Urine Color Yellow Urine Appearance Clear (Clear) Urine pH 8.5 H (4.5-7.5) Ur Specific [place] 1.038 H (1.000-1.030) Urine Protein Negative (Negative) Urine Glucose (UA) Negative (Negative) Urine Ketones Negative (Negative) Urine Blood Negative (Negative) Urine Nitrite Negative (Negative) Urine Bilirubin Negative (Negative) Urine Urobilinogen Negative (Negative) Ur Leukocyte Esterase Negative (Negative) SARS-CoV-2, RNA, NAAT NEGATIVE (NEGATIVE) Blood Type Antibody Screen Administered Medications Discontinued Medications Ioversol (Optiray 320 500ml) 110 ml IV ONCE ONE Stop: 10/27/22 14:11 Last Admin: 10/27/22 14:11 Dose: 110 ml Documented By: [facility] [place] Imaging Data Radiologist's Impression: Chest X-Ray 10/27/22 13:21 XR chest 1V portable CLINICAL HISTORY: stroke TECHNIQUE: Single frontal radiograph of the chest was obtained. Comparison: Comparison is made to chest radiograph 04/17/[address] abdomen pelvis 04/19/2021 FINDINGS: No lines and tubes are seen. Calcified aortic knob is seen. Reticular interstitial opacities are seen. No evidence of pleural effusion or pneumothorax. IMPRESSION: Interstitial opacities are seen, right greater than left. These are overall similar to prior exam. No superimposed airspace disease is seen. ACT 112: Negative or not required by law. Electronically signed by: Andrez Palacio M.D. 10/27/2022 2:[address] 10/27/22 13:21 CT head/brain wo con CLINICAL HISTORY: neuro deficit, acute stroke suspected Technique: Contiguous axial CT images of the head were acquired from the base of the skull to the vertex without intravenous contrast administration. Images were viewed in brain, subdural and bone windows. Automated dose lowering techniques and/or adjustment according to patient size were utilized for this exam. Comparison: Comparison is made to CT head 04/17/2022 Findings: Areas of decreased attenuation are present in the periventricular and subcortical white matter bilaterally consistent with small vessel ischemic disea se. Generalized cerebral atrophy with commensurate enlargement of the ventricles, sulci, and cisterns is also present. There is no acute intracranial hemorrhage or evidence of acute territorial infarction. No shift of the midline structures, mass effect, or extra-axial abnormalities are shown. Athe rosclerotic calcifications are present in the intracranial segments of the internal carotid arteries. There is a hypodensity in the left basal ganglia which was not seen on prior exam. Imaged portions of the paranasal sinuses and mastoid air cells are clear. The orbits appear normal. There are no acute fractures of the calvaria or scalp swelling. Impression: Hypodensity in the left basal ganglia represent an age-indeterminate lacunar infarct which was new from exam of April this year. Otherwise no acute abnormality is seen. There is no evidence of intracranial hemorrhage. ACT 112: Negative or not required by law. Electronically signed by: Andrez Palacio M.D. 10/27/2022 1:33 PM Head CTA 10/27/22 13:54 CT angio neck with con, CT angio head w con CLINICAL HISTORY: aphasia TECHNIQUE: CT angiography of the head and neck was performed following intravenous administration of iodinated contrast. Coronal and sagittal MIPS were obtained from the axial data set and were submitted for review. Automated dose lowering techniques and/or adjustment according to patient size were utilized for this examination. All measurements were calculated based on NASCET criteria. CT DOSE: 542.84 mGy.cm Comparison: Comparison is made to CTA head and neck 08/19/2018 FINDINGS: Interstitial thickening is seen in the lungs. Subcentimeter thyroid nodules are seen. CTA Neck: A 3 vessel aortic arch is shown. There is no significant atherosclerotic plaque in the aortic arch or the origins of the innominate, left common carotid, and left subclavian arteries. The common carotid, external carotid, cervical segments of the internal carotid arteries. There is narrowing of the P4 segment of the right vertebral artery. The left vertebral artery is dominant. CTA Head: The anterior and posterior cerebral circulations are patent. origin of the left posterior cerebral artery is seen. IMPRESSION: 1. No occlusion, hemodynamically significant stenosis, or dissection in the major cervical arteries. 2. No occlusion, hemodynamically significant stenosis, aneurysm, dissection, or arteriovenous malformation in the major intracranial arteries. Assessment of stenosis of the internal carotid arteries is based on NASCET criteria. ACT 112: Negative or not required by law. Electronically signed by: Andrez Palacio M.D. 10/27/2022 2:24 PM Neck CTA 10/27/22 13:54 CT angio neck with con, CT angio head w con CLINICAL HISTORY: aphasia TECHNIQUE: CT angiography of the head and neck was performed following intravenous administration of iodinated contrast. Coronal and sagittal MIPS were obtained from the axial data set and were submitted for review. Automated dose lowering techniques and/or adjustment according to patient size were utilized for this examination. All measurements were calculated based on NASCET criteria. CT DOSE: 542.84 mGy.cm Comparison: Comparison is made to CTA head and neck 08/19/2018 FINDINGS: Interstitial thickening is seen in the lungs. Subcentimeter thyroid nodules are seen. CTA Neck: A 3 vessel aortic arch is shown. There is no significant atherosclerotic plaque in the aortic arch or the origins of the innominate, left common carotid, and left subclavian arteries. The common carotid, external carotid, cervical segments of the internal carotid arteries. There is narrowing of the P4 segment of the right vertebral artery. The left vertebral artery is dominant. CTA Head: The anterior and posterior cerebral circulations are patent. origin of the left posterior cerebral artery is seen. IMPRESSION: 1. No occlusion, hemodynamically significant stenosis, or dissection in the major cervical arteries. 2. No occlusion, hemodynamically significant stenosis, aneurysm, dissection, or arteriovenous malformation in the major intracranial arteries. Assessment of stenosis of the internal carotid arteries is based on NASCET criteria. ACT 112: Negative or not required by law. Electronically signed by: Andrez Palacio M.D. 10/27/2022 2:24 PM Discharge Plan Visit Data Chief Complaint: Stroke Alert ED Provider: Moose Aden Discharge Problem: AMS (altered mental status), History of stroke, CKD (chronic kidney disease), Slurring of speech, FPC (current) use of anticoagulants Patient Disposition: Being Evaluated by Hospitalist Forms Stand Alone Forms: [facility] [employer] Prescriptions Prescriptions: No Action Xarelto 20 mg tablet 20 mg PO DAILY@1900 hydrochlorothiazide 12.5 mg capsule 12.5 mg PO HS Qty: 90 3RF Rx Instructions: TAKE 1 CAPSULE EVERY DAY ipratropium-albuterol 0.5 mg-3 mg(2.5 mg base)/3 mL solution for nebulization 3 ml INHALATION BID PRN (Reason: Shortness Of Breath) Qty: 540 1RF potassium citrate 10 mEq (1,080 mg) tablet extended release 10 meq PO TID Qty: 270 3RF finasteride [Proscar] 5 mg tablet 5 mg PO DAILY Qty: 90 3RF tamsulosin [Flomax] 0.4 mg capsule 0.4 mg PO DAILY Qty: 90 3RF fluticasone furoate-vilanterol [Breo Ellipta] 100-25 mcg/dose blister with device 1 inh inhalation DAILY Qty: 60 2RF Balance Of Nature Vitamins 4 cap PO QDL cholecalciferol (vitamin D3) [Vitamin D3] 50 mcg (2,000 unit) capsule 100 mcg PO QAM irbesartan-hydrochlorothiazide 150-12.5 mg tablet 1 tab PO DAILY omeprazole 20 mg capsule,delayed release(DR/EC) 20 mg PO QAM Referrals Referrals: Gideon Trejo [Primary Care Provider] - : AMS (altered mental status) Qualifiers: Altered mental status type: transient alteration of awareness Qualified Code(s): R40.4 - Transient alteration of awareness
[2022-10-27] MEDS ORDERED: OPTIRAY 320 500ml IV ONE (14:10)
[2022-10-27 14:23] LABS: Albumin Level 3.8 gm/dl (3.4-5.0); BUN Creatinine Ratio 14.7 (10-20); Bilirubin,Total 0.6 mg/dl (0.2-1.0); Calcium 9.5 mg/dl (8.5-10.1); Creatinine Clr Calc Pharmacy 35.6 ml/min; Est GFR (African American) 47.8 ml/min; Est GFR (Non-African American) 41.3 ml/min; Magnesium 1.8 mg/dl (1.7-2.4); Total Protein 7.8 gm/dl (6.0-8.3)
--- NOTE | 2022-10-27 14:26 | CT Scan Report ---
CT angio neck with con, CT angio head w con CLINICAL HISTORY: aphasia TECHNIQUE: CT angiography of the head and neck was performed following intravenous administration of iodinated contrast. Coronal and sagittal MIPS were obtained from the axial data set and were submitte d for review. Automated dose lowering techniques and/or adjustment according to patient size were ut ilized for this examination. All measurements were calculated based on NASCET criteria. CT DOSE: 542.84 mGy.cm Comparison: Comparison is made to CTA head and neck 08/19/2018 FINDINGS: Interstitial thickening is seen in the lungs. Subcentimeter thyroid nodules are seen. CTA Neck: A 3 vessel aortic arch is shown. There is no significant atherosclerotic plaque in the aor tic arch or the origins of the innominate, left common carotid, and left subclavian arteries. The c ommon carotid, external carotid, cervical segments of the internal carotid arteries. There is narrowi ng of the P4 segment of the right vertebral artery. The left vertebral artery is dominant. CTA Head: The anterior and posterior cerebral circulations are patent. origin of the left post erior cerebral artery is seen. IMPRESSION: 1. No occlusion, hemodynamically significant stenosis, or dissection in the major cervical arteries. 2. No occlusion, hemodynamically significant stenosis, aneurysm, dissection, or arteriovenous malfor mation in the major intracranial arteries. Assessment of stenosis of the internal carotid arteries is based on NASCET criteria. ACT 112: Negative or not required by law. Electronically signed by: Andrez Palacio M.D. 10/27/2022 2:24 PM
[2022-10-27 14:28] LABS: Troponin I High Sensitivity 6.2 pg/ml (0-20)
[2022-10-27 14:39] LABS: INR 1.2 (0.9-1.1); Partial Thromboplastin Ratio 1.3; Partial Thromboplastin Time 34.4 Seconds (21.0-31.0)
--- NOTE | 2022-10-27 15:36 | History & Physical Report ---
Date of Service October 27, 2022 Assessment & Plan (1) AMS (altered mental status): Plan: Strokelike symptoms Patient presented with an episode of staring and stiffness without shaking around 1215-day of admission Discussed with ER provider, telestroke was not called as patient is on Xarelto and high bleed risk and not a thrombolytic candidate and has had recurrent CVAs in the past and deferred antiplatelet therapy due to risk of bleeding Patient did not lose consciousness,? Occult seizure activity with history of multiple prior CVAs On CT age-indeterminate lacunar infarct since April, would not expect acute infarct to appear in timeframe the patient presented Patient recommended for admission and monitoring Follow-up MRI ordered, Neurology consulted for antiplatelet recommendations, potential EEG for seizure eval Chronic interstitial lung disease, oxygen dependence Suspected IPF, poor antifibrotic candidate on pulmonology follow-up Continue supplemental oxygen Continue Breo Aspiration precautions Hypertension Continue home antihypertensives History of PE Continue rivaroxaban 20 mg daily, no signs of bleeding at time of admission CKD Renally dose medications Creatinine 1.5 on admission Baseline creatinine 1.31.5 Trend Diet: Heart healthy pending swallow eval Disposition: Telemetry for post CVA eval CODE STATUS: DNR/DNI (2) CKD (chronic kidney disease): (3) CKD (chronic kidney disease): (4) History of stroke: (5) Chronic respiratory failure with hypoxia: (6) Chronic kidney disease, stage II (mild): (7) Chronic interstitial lung disease: (8) HTN (hypertension): (9) Hypercholesteremia: History of Present Illness Primary Care Provider: Gideon Trejo Trace Arias is a 87-year-old male with a past medical history of CKD, stroke, chronic respiratory failure with hypoxia on home oxygen, CVA, hypertension, interstitial lung disease, pulmonary embolism on DOAC who presents with strokelike symptoms Patient was seen by hematology oncology June 2022 for new DVT/PE. He was noted to be very high risk of bleeding with a past intracerebral bleed 10 years ago. Was referred for review of therapy and bleeding risk to hematology oncology at that time, given multiple prior CVAs but with history of intracerebral hemorrhage and high bleeding risk was recommended to defer antiplatelet therapy and to continue Xarelto therapy. Patient episode of COnfusion, didn't recognize , thought he needed to void bowels in room. When he got him to a chair did not lose conciousness, but had an episode of rigidity and wouldn't listen, EMS had to help free his hands him walk out of house. Pt was verbalizing at the time, and while was able to be facilitated out of the house was not following commands. No facial droop. No focal weakness. No reported tremors/tonic/clonic activity. N no similar episodes to this, no prior seizures although ablation with multiple strokes and very high bleeding risk after an injury cranial hemorrhage many years ago and with recurrent CVAs that have deferred antiplatelet treatment in favor of anticoagulation given concurrent history of PE.Patient seen at the bedside with his and family present. He is pleasant and redirectable, but he is with notable confusion requiring redirection. Is oriented to name and place, is not oriented to year. Patient does not remember the episode that caused him to present to the hospital, but reports that he feels normal at time of assessment. Family confirms story as noted above. No prior seizure activity. Denies arm/leg focal weakness, facial droop, or loss of consciousness. Allergies Allergy/AdvReac Type Severity Reaction Status Date / Time fluticasone [From Flonase] Allergy Unknown Unknown Verified 10/27/22 15:26 Home Medications Medication Instructions Recorded Confirmed Type rivaroxaban 20 mg tablet (Xarelto) 20 mg PO DAILY@1900 02/14/20 10/27/22 History Balance Of Nature Vitamins 4 cap PO QDL 04/19/21 10/27/22 History hydrochlorothiazide 12.5 mg capsule 12.5 mg PO HS #90 caps 07/09/21 10/27/22 Rx cholecalciferol (vitamin D3) 50 100 mcg PO QAM 07/19/21 10/27/22 History mcg (2,000 unit) capsule (Vitamin D3) ipratropium 0.5 mg-albuterol 3 mg 3 ml inhalation BID PRN Shortness 09/30/21 10/27/22 Rx (2.5 mg base)/3 mL nebulization Of Breath #540 mL soln potassium citrate 10 mEq (1,080 10 meq PO TID #270 tabs 09/30/21 10/27/22 Rx mg) tablet,extended release finasteride 5 mg tablet (Proscar) 5 mg PO DAILY #90 tabs 03/11/22 10/27/22 Rx tamsulosin 0.4 mg capsule (Flomax) 0.4 mg PO DAILY #90 caps 03/11/22 10/27/22 Rx fluticasone furoate 100 1 inh inhalation DAILY #60 ea 08/14/22 10/27/22 Rx mcg-vilanterol 25 mcg/dose inhalation powder (Breo Ellipta) irbesartan 150 1 tab PO DAILY 10/27/22 10/27/22 History mg-hydrochlorothiazide 12.5 mg tablet omeprazole 20 mg capsule,delayed 20 mg PO QAM 10/27/22 10/27/22 History release Past Med/Surg History Medical History Acute calculous cholecystitis BPH (benign prostatic hyperplasia) Chronic bronchitis Chronic cough Chronic hypoxemic respiratory failure Chronic kidney disease, stage II (mild) Colitis Dysphagia ON OCC PER SPOUSE Dyspnea on exertion Gait instability History of pulmonary embolus (PE) Hypercholesteremia 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 Nocturia On home oxygen therapy 2L/MIN NC HS Restrictive lung disease Stroke HX X 3-2009,2010 AND 08/18/2018 [facility] Ulcerative colitis HX Urgency of urination Weakness RIGHT SIDED WEAKNESS Surgical History H/O cataract removal with insertion of prosthetic lens R/L H/O lithotripsy History of bronchoscopy History of cholecystectomy History of colonoscopy Hx of hernia repair S/P cystoscopy with ureteral stent placement Family History Mother Stroke Father Myocardial infarction Sister Family history of diabetes mellitus Myocardial infarction Sister Pulmonary embolism Social History Smoking Status: Former smoker Second Hand Exposure: No; Hx Alcohol Use: No Hx Substance Use: No Preferred Language: Slovak Communication Ability: Effective Visual Impairment: No Limitations Restaurant 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 Redirectable, but frequently tangential TP. HEENT: Atraumatic, normocephalic. Vision/hearing grossly intact, no visual field cuts, pupil equal and reactive to light and accommodation. No tongue lesions. Pulm: CTAB A&P. -wheezes, -rales, -rhonchi. Symmetrical chest rise. No increased work of breathing. No respiratory distress. Cardiac: RRR, -mrg. Radial pulses intact and symmetrical. Abdominal: Nontender, nondistended, soft. BS present. 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 Sensation soft touch intact bilaterally. Results & Data Results & Data ([facility]) Vital Signs (Past 12 Hours) Vital Signs Temp Pulse Pulse Resp BP BP Pulse Ox 10/27/22 15:06 86 16 165/92 H 95 10/27/22 13:45 16 172/111 H 95 10/27/22 13:45 10/27/22 13:45 37.0 C 77 16 172/111 H 94 O2 Del Method 10/27/22 15:06 10/27/22 13:45 10/27/22 13:45 Room Air 10/27/22 13:45 PG Care Time/CCT Total # of Minutes Spent Total Time Spent with Patient: Total time spent is greater than 50% in coordination of care (as documented) at patient's floor/unit and/or counseling patient: Coding Level of Care Code 76827 Initial Inpt Care Lvl 2 Diagnoses AMS (altered mental status) R40.4 Altered mental status type: transient alteration of awareness CKD (chronic kidney disease) N18.9 CKD (chronic kidney disease) N18.9 Chronic kidney disease stage: unspecified stage History of stroke Z86.73 Chronic respiratory failure with hypoxia J96.11 Chronic kidney disease, stage II (mild) N18.2 Chronic interstitial lung disease J84.9 HTN (hypertension) I10 Hypertension type: essential hypertension Hypercholesteremia E78.00 (1) AMS (altered mental status) Altered mental status type: transient alteration of awareness Qualified Code(s): R40.4 - Transient alteration of awareness (2) CKD (chronic kidney disease) Chronic kidney disease stage: unspecified stage Qualified Code(s): N18.9 - Chronic kidney disease, unspecified (3) HTN (hypertension) Hypertension type: essential hypertension Qualified Code(s): I10 - Essential (primary) hypertension
[2022-10-27 15:38] LABS: Appearance Urine Clear (Clear); Bilirubin Urine Negative (Negative); Blood Urine Negative (Negative); Color Urine Yellow; Glucose Urine UA Negative (Negative); Ketones Urine Negative (Negative); Leukocyte Esterase Urine Negative (Negative); Nitrite Urine Negative (Negative); Protein Urine Negative (Negative); Specific Gravity Urine 1.038 (1.000-1.030); Urobilinogen Urine Negative (Negative); pH Urine 8.5 (4.5-7.5)
[2022-10-27] MEDS ORDERED: PHARMACIST DISCHARGE MED REC CONSULT PRN (18:21)
[2022-10-27] MEDS ORDERED: ALBUT/IPRATROP 3MG/0.5MG NEB 3 ML VIAL INH PRN (18:21)
--- NOTE | 2022-10-27 19:31 | Magnetic Resonance Report ---
MRI OF THE BRAIN WITHOUT IV CONTRAST CLINICAL HISTORY: Strokelike symptoms. COMPARISON STUDY: CT of the brain dated 10/27/2022. TECHNIQUE: MRI of the brain was performed utilizing various T1 and T2-weighted sequences in the axial , sagittal, and coronal planes. IV contrast was not administered for this examination. FINDINGS: Brain parenchyma: There is age-related involutional change noting advanced subcortical and periventri cular microangiopathic disease. There is no hemorrhage or mass effect. There is no restricted diffusi on to suggest acute ischemia. Long-white matter differentiation is preserved. No extra-axial fluid co llection is seen. Chronic lacunar infarcts are noted in the basal ganglia and thalami. The cerebellar tonsils are normal in configuration. Calcifications are again seen within the basal ganglia and thal ami. Ventricles, sulci, and cisterns: Prominent secondary to involutional change. Pituitary and sella: Unremarkable. Intracranial vasculature: Normal flow voids are maintained at the skull base. Orbits: The bony orbits are grossly intact. Orbital contents are normal in appearance noting bilatera l ocular lens implants. Sinuses and mastoids: There is a small right mastoid effusion. The left mastoid air cells and the par anasal sinuses are clear. Calvarium: Unremarkable. Cervical cord: Partially visualized cervical spinal cord is normal in morphology and signal intensity . IMPRESSION: No acute intracranial abnormality. ACT 112: Negative or not required by law. Electronically signed by: Zaid Nuno M.D. 10/27/2022 7:29 PM
[2022-10-27] MEDS: POTASSIUM CITRATE 10 MEQ TAB PO SCH (20:44)
[2022-10-27] MEDS: RIVAROXABAN 20 MG TAB PO SCH (20:44)
[2022-10-27] MEDS: hydroCHLOROthiazide 25 MG TAB PO SCH (21:04)
[2022-10-28 07:20] LABS: Basophils # (auto) 0.05 K/uL (0-0.2); Basophils % (auto) 0.8 %; Eosinophils # (auto) 0.18 K/uL (0-0.50); Eosinophils % (auto) 2.8 %; Hematocrit (blood only) 37.7 % (40.1-51.0); Hemoglobin 12.7 g/dl (14.0-18.0); Immature Granulocytes # (auto) 0.02 K/uL (0.00-0.02); Immature Granulocytes % (auto) 0.3 %; Lymphocytes # (auto) 1.81 K/uL (1.2-3.4); Lymphocytes % (auto) 28.4 %; Mean Corpuscular Hemoglobin 29.3 pg (25.0-34.0); Mean Corpuscular Hgb Conc 33.7 g/dL (32.0-36.0); Mean Corpuscular Volume 87.1 fL (80.0-100.0); Mean Platelet Volume 10.7 fL (9.4-12.4); Monocytes # (auto) 0.55 K/uL (0.24-0.82); Monocytes % (auto) 8.6 %; Neutrophils # (auto) 3.76 K/uL (1.4-6.5); Neutrophils % (auto) 59.1 %; Platelet Count 162 K/uL (130-400); RDW Coefficient of Variation 14.4 % (11.5-14.5); RDW Standard Deviation 46.2 fL (36.4-46.3); Red Blood Count 4.33 M/uL (4.63-6.08); White Blood Count 6.37 K/ul (4.8-10.8)
[2022-10-28 07:51] LABS: BUN Creatinine Ratio 15.4 (10-20); Calcium 8.7 mg/dl (8.5-10.1); Chol HDL Ratio 3.1 (0-5); Creatinine Clr Calc Pharmacy 44.7 ml/min; Est GFR (African American) 64.6 ml/min; Est GFR (Non-African American) 55.7 ml/min; Potassium 3.4 mmol/L (3.5-5.1)
[2022-10-28] MEDS ORDERED: FLUTICASONE/VILANTEROL 100/25MCG 14 PUFFS/INHALER INH SCH (09:00)
[2022-10-28] MEDS: IRBESARTAN 150 MG TAB PO SCH (11:30)
[2022-10-28] MEDS: PANTOprazole 40 MG TAB PO SCH (11:31)
[2022-10-28] MEDS: TAMSULOSIN HCL 0.4 MG CAP PO SCH (11:31)
--- NOTE | 2022-10-28 12:18 | Neurology Consultation ---
Date of Consultation October 28, 2022 Assessment & Plan (1) AMS (altered mental status): Patient had an unusual episode at home that was self-limited, consisting of staring, rigidity, verbal unresponsiveness. Apparently has never had anything at all like this in the past. No focality to suggest focal SCANNING CLERK ischemia. Would question whether this was a partial onset seizure. He does not drive. EEG is pending. MRI brain without evidence of significant acute ischemia, but does have scattered remote subcortical white matter disease. If EEG should show any type of seizure tendency, would proceed with an anticonvulsant. If EEG unremarkable, would follow expectantly to see whether anything similar happens again. Since he is not driving, the risk of significant injury is low. I told if she should see any similar symptoms in the future, to have him brought back to the emergency room for reevaluation. Would also recommend he be scheduled with outpatient neurology for follow-up. History of Present Illness Attending Physician: Dileep Ramos MD History of Present Illness Patient does not recall any details of the event prior to admission. His witnessed that though and is a good historian. She says in the morning she helped him with the shower as she typically does, and he seems to be at baseline. While walking back toward the bathroom later, he suddenly stopped and started to stare, and stopped responding to her. There was no change in his facial color. He did not seem as though he was about to fall, but held on very tightly to the handrails that were nearby. He would not answer any questions. Did not look as though he was about to pass out. Simply stood and stared and held onto the handrails tightly. She became concerned and called for family who live up the road. EMS then was called, and had to forcibly remove the patient's hands from the handrails. Patient gradually returned to normal over the subsequent hour or so. She feels he is back to his baseline today and patient has no complaints. They report nothing at all like this is ever happened before. He has never had anything thought to been a seizure either as an adult or child. Apparently no incontinence with this spell. Allergies Allergy/AdvReac Type Severity Reaction Status Date / Time fluticasone [From Flonase] Allergy Unknown Unknown Verified 10/27/22 15:26 Home Medications Medication Instructions Recorded Confirmed Type rivaroxaban 20 mg tablet (Xarelto) 20 mg PO DAILY@1900 02/14/20 10/27/22 History Balance Of Nature Vitamins 4 cap PO QDL 04/19/21 10/27/22 History hydrochlorothiazide 12.5 mg capsule 12.5 mg PO HS #90 caps 07/09/21 10/27/22 Rx cholecalciferol (vitamin D3) 50 100 mcg PO QAM 07/19/21 10/27/22 History mcg (2,000 unit) capsule (Vitamin D3) ipratropium 0.5 mg-albuterol 3 mg 3 ml inhalation BID PRN Shortness 09/30/21 10/27/22 Rx (2.5 mg base)/3 mL nebulization Of Breath #540 mL soln potassium citrate 10 mEq (1,080 10 meq PO TID #270 tabs 09/30/21 10/27/22 Rx mg) tablet,extended release finasteride 5 mg tablet (Proscar) 5 mg PO DAILY #90 tabs 03/11/22 10/27/22 Rx tamsulosin 0.4 mg capsule (Flomax) 0.4 mg PO DAILY #90 caps 03/11/22 10/27/22 Rx fluticasone furoate 100 1 inh inhalation DAILY #60 ea 08/14/22 10/27/22 Rx mcg-vilanterol 25 mcg/dose inhalation powder (Breo Ellipta) irbesartan 150 1 tab PO DAILY 10/27/22 10/27/22 History mg-hydrochlorothiazide 12.5 mg tablet omeprazole 20 mg capsule,delayed 20 mg PO QAM 10/27/22 10/27/22 History release Patient History Medical History Acute calculous cholecystitis BPH (benign prostatic hyperplasia) Chronic bronchitis Chronic cough Chronic hypoxemic respiratory failure Chronic kidney disease, stage II (mild) Colitis Dysphagia ON OCC PER SPOUSE Dyspnea on exertion Gait instability History of pulmonary embolus (PE) Hypercholesteremia 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 Nocturia On home oxygen therapy 2L/MIN NC HS Restrictive lung disease Stroke HX X 3-2009,2010 AND 08/18/2018 ([facility]) Ulcerative colitis HX Urgency of urination Weakness RIGHT SIDED WEAKNESS Surgical History H/O cataract removal with insertion of prosthetic lens R/L H/O lithotripsy History of bronchoscopy History of cholecystectomy History of colonoscopy Hx of hernia repair S/P cystoscopy with ureteral stent placement Family History Mother Stroke Father Myocardial infarction Sister Family history of diabetes mellitus Myocardial infarction Sister Pulmonary embolism Social History Smoking Status: Former smoker Second Hand Exposure: No; Do You Dip or Chew Tobacco: No; Tobacco Cessation Education Requested by Patient: No Hx Alcohol Use: No Hx Substance Use: No Preferred Language: Sierra Leonean Communication Ability: Effective Visual Impairment: No Limitations Chief Clinical Officer Required: No Beliefs That Will Affect Care: None marital status: Current Living Situation: Spouse current occupational status: retired 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 He has not driven since 2008, when he voluntarily gave up his license. Physical Exam Physical Exam: Awake, alert, attentive. Very hard of hearing, which limits the exam somewhat. He was oriented to month, but was unsure of the year and the date. Did not volunteer much information. Speech was slow but intelligible. No paraphasic errors. Attends to both sides of space. No facial asymmetry. No pronator drift. Strength seems reasonably good in the arms, diffusely decreased strength in the legs. He was however able to stand and walk with this balance assistance. No adventitious movements seen. Results & Data ([facility]) Vital Signs (Past 12 Hours) Vital Signs Temp Pulse Pulse Pulse Resp BP Pulse Ox 10/28/22 07:42 36.6 C 67 18 136/69 92 10/28/22 02:53 36.5 C 100 H 18 184/90 H 95 10/28/22 02:47 99 H 10/28/22 00:29 O2 Del Method O2 Flow Rate 10/28/22 07:42 Room Air 10/28/22 02:53 Nasal Cannula 2 10/28/22 02:47 10/28/22 00:29 Nasal Cannula 2 (1) AMS (altered mental status) Altered mental status type: transient alteration of awareness Qualified Code(s): R40.4 - Transient alteration of awareness
[2022-10-28] MEDS: FINASTERIDE 5 MG TAB PO SCH (12:24)
[2022-10-28] MEDS: hydroCHLOROthiazide 25 MG TAB PO SCH ×2 (12:24→21:05)
[2022-10-28] MEDS: POTASSIUM CITRATE 10 MEQ TAB PO SCH ×3 (12:24→21:05)
--- NOTE | 2022-10-28 12:47 | Electrocardiogram Report ---
Test Reason : Blood Pressure : / mmHG Vent. Rate : 097 BPM Atrial Rate : 097 BPM P-R Int : 222 ms QRS Dur : 088 ms QT Int : 342 ms P-R-T Axes : 049 -50 063 degrees QTc Int : 434 ms Poor data quality, interpretation may be adversely affected Sinus rhythm with 1st degree A-V block Left axis deviation Abnormal ECG When compared with ECG of 17-APR-2022 08:24, Premature ventricular complexes are no longer Present Premature atrial complexes are no longer Present Incomplete right bundle branch block is no longer Present Borderline criteria for Anteroseptal infarct are no longer Present Confirmed by Artem Shannon ([id number]) on 10/28/2022 12:47:21 PM Referred By: REFERRED SELF Confirmed By:Flex Shannon
[2022-10-28 13:26] LABS: Estimated Average Glucose 117 mg/dl; Hemoglobin A1C 5.7 % (4.5-5.6)
--- NOTE | 2022-10-28 16:37 | Electroencephalogram ---
EEG Procedure Note Date of Service October 28, 2022 Start / End Times Start Time: 1325 End Time: 1345 Referring Physician eloisa History Patient with unusual episode at home, possible seizure Home Medication List Medication Instructions Recorded Confirmed Type rivaroxaban 20 mg tablet (Xarelto) 20 mg PO DAILY@1900 02/14/20 10/27/22 History Balance Of Nature Vitamins 4 cap PO QDL 04/19/21 10/27/22 History hydrochlorothiazide 12.5 mg capsule 12.5 mg PO HS #90 caps 07/09/21 10/27/22 Rx cholecalciferol (vitamin D3) 50 100 mcg PO QAM 07/19/21 10/27/22 History mcg (2,000 unit) capsule (Vitamin D3) ipratropium 0.5 mg-albuterol 3 mg 3 ml inhalation BID PRN Shortness 09/30/21 10/27/22 Rx (2.5 mg base)/3 mL nebulization Of Breath #540 mL soln potassium citrate 10 mEq (1,080 10 meq PO TID #270 tabs 09/30/21 10/27/22 Rx mg) tablet,extended release finasteride 5 mg tablet (Proscar) 5 mg PO DAILY #90 tabs 03/11/22 10/27/22 Rx tamsulosin 0.4 mg capsule (Flomax) 0.4 mg PO DAILY #90 caps 03/11/22 10/27/22 Rx fluticasone furoate 100 1 inh inhalation DAILY #60 ea 08/14/22 10/27/22 Rx mcg-vilanterol 25 mcg/dose inhalation powder (Breo Ellipta) irbesartan 150 1 tab PO DAILY 10/27/22 10/27/22 History mg-hydrochlorothiazide 12.5 mg tablet omeprazole 20 mg capsule,delayed 20 mg PO QAM 10/27/22 10/27/22 History release Inpatient Medication List Finasteride (Finasteride 5 Mg Tab) 5 mg PO DAILY [facility] Stop: 11/27/22 08:59 Last Admin: 10/28/22 12:24 Dose: 5 mg Documented By: MALCOLM Hydrochlorothiazide (Hydrochlorothiazide 25 Mg Tab) 12.5 mg PO HS [facility] Stop: 11/26/22 20:59 Last Admin: 10/27/22 21:04 Dose: 12.5 mg Documented By: QGV Hydrochlorothiazide (Hydrochlorothiazide 25 Mg Tab) 12.5 mg PO DAILY [facility] Stop: 11/27/22 08:59 Last Admin: 10/28/22 12:24 Dose: 12.5 mg Documented By: EVIE Irbesartan (Irbesartan 150 Mg Tab) 150 mg PO DAILY [facility] Stop: 11/27/22 08:59 Last Admin: 10/28/22 11:30 Dose: 150 mg Documented By: EVIE Pantoprazole Sodium (Pantoprazole 40 Mg Tab) 40 mg PO QAM [facility] Stop: 11/27/22 08:59 Last Admin: 10/28/22 11:31 Dose: 40 mg Documented By: EVIE Potassium Citrate (Potassium Citrate 10 Meq Tab) 10 meq PO TID [facility] Stop: 11/26/22 20:59 Last Admin: 10/28/22 16:18 Dose: 10 meq Documented By: [facility] Admin: 10/28/22 12:24 Dose: 10 meq Documented By: [facility] Admin: 10/27/22 20:44 Dose: 10 meq Documented By: QGV Rivaroxaban (Rivaroxaban 20 Mg Tab) 20 mg PO DAILY@1900 [facility] Stop: 11/26/22 18:59 Last Admin: 10/27/22 20:44 Dose: 20 mg Documented By: QGV Tamsulosin HCl (Tamsulosin Hcl 0.4 Mg Cap) 0.4 mg PO DAILY [facility] Stop: 11/27/22 08:59 Last Admin: 10/28/22 11:31 Dose: 0.4 mg Documented By: EVIE Discontinued Medications Fluticasone/Vilanterol (Fluticasone/Vilanterol 100/25mcg 14 Puffs/Inhaler) 1 puffs INH DAILY [facility] Stop: 11/27/22 08:59 Last Admin: 10/28/22 11:08 Dose: Not Given Documented By: EVIE Ioversol (Optiray 320 500ml) 110 ml IV ONCE ONE Stop: 10/27/22 14:11 Last Admin: 10/27/22 14:11 Dose: 110 ml Documented By: [facility] Miscellaneous (Irbesartan-Hydrochlorothiazide 150-12.5 Mg ~ Order Awaiting Action) 1 each N/A QS [facility] Stop: 11/27/22 00:00 Last Admin: 10/28/22 09:47 Dose: Not Given Documented By: [facility] Admin: 10/28/22 00:06 Dose: Not Given Documented By: TALITA Description This is a 21 electrode EEG with a single channel dedicated to limited EKG. The electrodes were placed in accordance with the International 10-20 system. Initially the predominant background is a low amplitude mixture of mainly alpha frequencies, without a predominant frequency. The background appears reasonably symmetric. Brief runs of generalized synchronous delta activity are seen lasting 1 to 2 seconds at a time but constitutes a minority of the recording. Photic stimulation without significant photic driving. No sleep transients are seen. No voltage asymmetries or epileptiform abnormalities are noted. Photic stimulation without significant photic driving. Hyperventilation is not performed. Interpretation Mildly abnormal EEG due to intermittent generalized slowing, consistent with mild underlying encephalopathy of nonspecific nature. No indication of an underlying seizure tendency or structural disorder. Please correlate clinically.
--- NOTE | 2022-10-28 19:18 | Hospitalist Progress Note ---
Date of Service October 28, 2022 Assessment & Plan (1) AMS (altered mental status): Plan: -Sudden onset of confusion that resolved after few hours gradually -EEG is abnormal but did not show any epileptogenic foci Patient presented with an episode of staring and stiffness without shaking -MRI did not show evidence of a stroke On CT age-indeterminate lacunar infarct since April, would not expect acute infarct to appear in timeframe the patient presented -We will discuss with neurology if the patient is candidate for antiseizure medication (2) CKD (chronic kidney disease): Plan: Stable (3) History of stroke: Plan: Continue antiplatelet, continue statin (4) Chronic respiratory failure with hypoxia: Plan: Chronic interstitial lung disease, oxygen dependence Suspected IPF, poor antifibrotic candidate on pulmonology follow-up Continue supplemental oxygen Continue Breo Aspiration precautions (5) HTN (hypertension): Plan: Fairly controlled with the current regimen (6) Hypercholesteremia: Plan: Continue statin Admission and Anticipated Discharge Date Admission Date: October 27, 2022 Results & Data Results & Data ([facility]) Vital Signs (Past 12 Hours) Vital Signs Temp Pulse Pulse Resp BP Pulse Ox O2 Del Method 10/28/22 14:23 75 10/28/22 15:39 36.9 C 77 20 127/62 94 Room Air 10/28/22 12:10 36.7 C 79 20 179/75 H 94 Room Air 10/28/22 07:42 36.6 C 67 18 136/69 92 Room Air PG Care Time/CCT Total # of Minutes Spent Total Time Spent with Patient: Total time spent is greater than 50% in coordination of care (as documented) at patient's floor/unit and/or counseling patient: Coding Level of Care Code 10544 Subseq Hosp Care Lvl 2 Diagnoses AMS (altered mental status) R40.4 Altered mental status type: transient alteration of awareness CKD (chronic kidney disease) N18.9 History of stroke Z86.73 Chronic respiratory failure with hypoxia J96.11 HTN (hypertension) I10 Hypertension type: essential hypertension Hypercholesteremia E78.00 (1) AMS (altered mental status) Altered mental status type: transient alteration of awareness Qualified Code(s): R40.4 - Transient alteration of awareness (2) HTN (hypertension) Hypertension type: essential hypertension Qualified Code(s): I10 - Essential (primary) hypertension
[2022-10-28] MEDS: RIVAROXABAN 20 MG TAB PO SCH (21:06)
[2022-10-28] MEDS ORDERED: OLANZapine 10 MG/2.1 ML SDV IM STA (22:38)
[2022-10-29] MEDS ORDERED: POTASSIUM CHLORIDE CRTAB 20 MEQ TABCR PO STA (00:10)
[2022-10-29] MEDS: POTASSIUM CITRATE 10 MEQ TAB PO SCH ×3 (07:59→20:04)
[2022-10-29] MEDS: hydroCHLOROthiazide 25 MG TAB PO SCH ×2 (07:59→20:04)
[2022-10-29] MEDS: IRBESARTAN 150 MG TAB PO SCH (08:00)
[2022-10-29] MEDS: PANTOprazole 40 MG TAB PO SCH (08:00)
[2022-10-29] MEDS: FINASTERIDE 5 MG TAB PO SCH (08:00)
[2022-10-29] MEDS: TAMSULOSIN HCL 0.4 MG CAP PO SCH (08:00)
[2022-10-29] MEDS ORDERED: IRBESARTAN 150 MG TAB PO SCH (09:00)
[2022-10-29 09:07] LABS: Basophils # (auto) 0.06 K/uL (0-0.2); Basophils % (auto) 0.9 %; Eosinophils # (auto) 0.18 K/uL (0-0.50); Eosinophils % (auto) 2.7 %; Hematocrit (blood only) 41.4 % (40.1-51.0); Hemoglobin 14.1 g/dl (14.0-18.0); Immature Granulocytes # (auto) 0.01 K/uL (0.00-0.02); Immature Granulocytes % (auto) 0.1 %; Lymphocytes # (auto) 1.81 K/uL (1.2-3.4); Lymphocytes % (auto) 27.1 %; Mean Corpuscular Hgb Conc 34.1 g/dL (32.0-36.0); Mean Platelet Volume 10.6 fL (9.4-12.4); Monocytes # (auto) 0.53 K/uL (0.24-0.82); Monocytes % (auto) 7.9 %; Neutrophils % (auto) 61.3 %; Platelet Count 200 K/uL (130-400); RDW Coefficient of Variation 14.6 % (11.5-14.5); RDW Standard Deviation 44.8 fL (36.4-46.3); Red Blood Count 4.87 M/uL (4.63-6.08); White Blood Count 6.69 K/ul (4.8-10.8)
[2022-10-29 09:37] LABS: BUN Creatinine Ratio 16.3 (10-20); Calcium 9.1 mg/dl (8.5-10.1); Creatinine Clr Calc Pharmacy 35.3 ml/min; Est GFR (Non-African American) 42.3 ml/min; Potassium 3.5 mmol/L (3.5-5.1)
[2022-10-29] MEDS ORDERED: OPTIRAY 320 500ml IV ONE (10:33)
--- NOTE | 2022-10-29 10:49 | CT Scan Report ---
CT angio chest w con CLINICAL HISTORY: to follow on cxr TECHNIQUE: Multidetector row helical CT of the chest was performed with angiographic protocol. Wise l and sagittal reformations were obtained. Coronal and sagittal MIPS were obtained from the axial deana a set and were submitted for review. Automated dose lowering techniques and/or adjustment according to patient size were utilized for this exam. CT DOSE: 1101.09 mGy.cm Comparison: Comparison is made to CTA chest 11/23/2020 FINDINGS: Lungs and pleura: Peripheral interstitial opacities are seen. Heart and pericardium: Heart size is normal. No pericardial effusion. Vessels: Evaluation for pulmonary embolism is limited due to patient motion. No evidence of central, lobar, or segmental embolus. Mediastinum and rikki: Subcentimeter lymph nodes are seen. Chest wall and lower neck: Unremarkable. Abdomen: Patient is status post cholecystectomy. Partial visualization of hepatic cysts. Bones: Degenerative changes in the thoracic spine. IMPRESSION: 1. No evidence of pulmonary embolism. 2. 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 ACT 112: Negative or not required by law. Electronically signed by: Andrez Palacio M.D. 10/29/2022 10:47 AM
--- NOTE | 2022-10-29 10:53 | CT Scan Report ---
UNENHANCED CT OF THE BRAIN; CT ANGIOGRAM OF THE BRAIN; CT ANGIOGRAM OF THE NECK CLINICAL HISTORY: Change in mental status. Stroke like symptoms. COMPARISON STUDY: CT of the exam of the head and neck dated 10/27/2022. MRI of the brain dated 10/27. TECHNIQUE: Unenhanced axial CT scan of the brain is performed. Subsequently, following the IV adminis tration of 112 of [address] [address], CT angiogram of the head and neck was performed from the aortic arch t o the vertex. Images are reviewed in the axial, sagittal, and coronal planes. 3-D MIPS images are cre ated and assessed. IV contrast was administered without complication. All measurements were calculate d based on NASCET criteria. A dose lowering technique was utilized adhering to the principles of ALA RA. FINDINGS: Brain parenchyma: There is age-related involutional change noting moderate subcortical and periventri cular microangiopathic disease. Chronic lacunar infarcts are noted in the left rodriguez radiata and the left basal ganglia. There is no hemorrhage, mass effect, or evidence of acute territorial ischemia b y CT criteria. There is no evidence of enhancing mass lesion on the angiogram phase images. The ventr icles, sulci, and cisterns are prominent secondary to involutional change. Mineralization is noted in the basal ganglia. Long-white matter differentiation is preserved. No extra-axial fluid collection i s seen. Thoracic aorta: There is atherosclerotic calcification of the thoracic aorta. Visualized portions of the thoracic aorta are normal in caliber. The aortic arch demonstrates standard 3-vessel anatomy. Right carotid arterial system: The right common carotid artery is widely patent, as are the right int ernal and external carotid arteries. Calcified plaque is noted in the carotid bulb. Left carotid arterial system: The left common carotid artery is widely patent, as are the left international travel consultant al and external carotid arteries. Minimal plaque is seen in the carotid bulb. Vertebral arteries: There is mild stenosis at the origin of the right vertebral artery. The vertebral arteries are otherwise patent bilaterally noting left-sided dominance. Subclavian arteries: Widely patent bilaterally. Intracranial vasculature: There is atherosclerotic calcification of the cavernous carotid and vertebr al arteries. The internal carotid arteries are patent at the skull base, as are the anterior and midd le cerebral arteries bilaterally. The vertebrobasilar system and posterior cerebral arteries are wide ly patent. The left vertebral artery is dominant. There is origin of the left posterior cerebra l artery. There is no aneurysm, high-grade stenosis, or focal vessel cut off is seen throughout the i ntracranial circulation. Jugular veins: Patent bilaterally. Dural sinuses: Patent. Lung apices: Fibrotic change is seen in the upper lobes. Soft tissues: The visualized pharyngeal soft tissues are normal in appearance noting angiographic pha se technique. The oropharyngeal airway appears widely patent. The salivary and thyroid glands are nor mal in appearance. No cervical lymphadenopathy is seen. Skeletal structures: The skeletal structures are osteopenic. The calvarium appears intact. The cervic al spine is maintained noting multilevel spondylosis. No lytic or blastic lesion is seen. Orbits: The bony orbits are intact. Orbital contents are normal as visualized noting bilateral ocular lens implants. Sinuses and mastoids: The paranasal sinuses are clear. There is trace right mastoid effusion. The lef t mastoid air cells are well pneumatized. IMPRESSION: 1. There is no hemorrhage, mass effect, or evidence of acute territorial ischemia by CT criteria. 2. Unremarkable CT angiogram of the brain. This is unchanged from 10/27/2022. 3. There is mild stenosis at the origin of the right vertebral artery. 4. Otherwise unremarkable CT angiogram of the neck. These findings are unchanged from 10/27/2022. ACT 112: Negative or not required by law. Electronically signed by: Zaid Nuno M.D. 10/29/2022 10:51 AM
--- NOTE | 2022-10-29 10:54 | Neurology Progress Note ---
Date of Service October 29, 2022 Assessment & Plan (1) Hemiparesis: Plan: By report, this morning it was noted that the patient was having some change in cognition, and later that his right arm was weak. Both of these appear to have improved spontaneously. Awaiting results of CT and CTA. Patient on Xarelto, would not be a candidate for intravenous thrombolysis. Clinically this does not appear to be a large vessel event, probably will not be a candidate for i ntervention. Interesting that this event seems different than the one that was present prior to admission, which had no focal weakness reported, and involve the patient becoming staring and unresponsive and rigid. He does not seem that way at all at present. Unclear if this is exactly the same event, or whether an event in a different distribution. Assuming no intervention is undertaken, patient does appear to be improving already. We will recheck MRI brain though. EEG without seizure tendency. Continue to hold off on anticonvulsants for now. Admission and Anticipated Discharge Date Admission Date: October 27, 2022 Subjective By report, earlier this morning patient was noted to be acting confused, and at some point afterward, did not use his right arm as well. A stroke alert was called. Patient now in ICU waiting final test results. He has no complaints. Review of Systems Review of Systems: Unreliable Physical Exam Physical Exam: Awake, alert, attentive. There might be a slight preference to look to the left, but I can get his head and eyes to the right of midline. Still very hard of hearing, which limits the exam somewhat. He will answer questions, can say his name, knows he is in a hospital but does not know the name. Does not state the month or year. No spontaneous speech. Speech is otherwise though sounds the same as yesterday when he does talk. No paraphasic errors. Does not cooperate fully with exam, unclear if it is because he cannot hear the instructions, or whether he cannot understand them. Cannot really get him to activate his face to see if there is weakness but there is no resting asymmetry. There is a noticeable pronator drift on the right today which was not there yesterday. Mild upper motor neuron pattern weakness of the right arm, difficult to get him to exert power with either leg. Left arm still seems strong. No adventitious movements. Results & Data ([facility]) Vital Signs (Past 12 Hours) Vital Signs Temp Pulse Pulse Pulse Resp BP BP 12/28/22 10:40 36.5 C 89 18 130/80 10/29/22 08:10 36.1 C L 98 H 129/80 10/28/22 23:42 36.5 C 108 H 16 142/80 H Pulse Ox O2 Del Method O2 Flow Rate 10/29/22 10:40 96 Room Air 10/29/22 08:10 94 Room Air 10/28/22 23:42 97 Nasal Cannula 2
--- NOTE | 2022-10-29 13:09 | Magnetic Resonance Report ---
MRI OF THE BRAIN WITHOUT IV CONTRAST CLINICAL HISTORY: Strokelike symptoms. COMPARISON STUDY: CT of the brain dated 10/21/2022. MRI of the brain dated 10/27/2022. TECHNIQUE: MRI of the brain was performed utilizing various T1 and T2-weighted sequences in the axial , sagittal, and coronal planes. IV contrast was not administered for this examination. FINDINGS: Brain parenchyma: There is age-related involutional change noting advanced subcortical and periventri cular microangiopathic disease. There is no hemorrhage or mass effect. There is no restricted diffusi on to suggest acute ischemia. Long-white matter differentiation is preserved. No extra-axial fluid co llection is seen. Chronic lacunar infarcts are noted in the basal ganglia and thalami. The cerebellar tonsils are normal in configuration. Calcifications are again seen within the basal ganglia and thal ami. Ventricles, sulci, and cisterns: Prominent secondary to involutional change. Pituitary and sella: Unremarkable. Intracranial vasculature: Normal flow voids are maintained at the skull base. Orbits: The bony orbits are grossly intact. Orbital contents are normal in appearance noting bilatera l ocular lens implants. Sinuses and mastoids: There is a right mastoid effusion. The paranasal sinuses and left mastoid air c ells are clear. Calvarium: Unremarkable. Cervical cord: Partially visualized cervical spinal cord is normal in morphology and signal intensity . IMPRESSION: No acute intracranial abnormality. No significant change from 10/27/2022. ACT 112: Negative or not required by law. Electronically signed by: Zaid Nuno M.D. 10/29/2022 1:08 PM
[2022-10-29] MEDS: levETIRAcetam 750 MG in 0.9 % SODIUM CHLORIDE 100 ML IV SCH (18:04)
--- NOTE | 2022-10-29 18:17 | Hospitalist Progress Note ---
Date of Service October 29, 2022 Assessment & Plan (1) AMS (altered mental status): Plan: -Sudden onset of confusion that resolved after few hours gradually -EEG is abnormal but did not show any epileptogenic foci Patient presented with an episode of staring and stiffness without shaking -MRI did not show evidence of a stroke On CT age-indeterminate lacunar infarct since April, would not expect acute infarct to appear in timeframe the patient presented -We will discuss with neurology if the patient is candidate for antiseizure medication 10/29 Another episode as mentioned above occurred on 10/29, night before, she developed confusion, in the morning patient developed right upper extremity weakness facial droop, stroke alert was called, work-up unremarkable as mentioned above, started on Keppra as mentioned above, EEG is abnormal however did not show any evidence of epileptogenic foci (2) CKD (chronic kidney disease): Plan: Stable (3) History of stroke: Plan: Continue antiplatelet, continue statin (4) Chronic respiratory failure with hypoxia: Plan: Chronic interstitial lung disease, oxygen dependence Suspected IPF, poor antifibrotic candidate on pulmonology follow-up Continue supplemental oxygen Continue Breo Aspiration precautions (5) HTN (hypertension): Plan: Fairly controlled with the current regimen (6) Hypercholesteremia: Plan: Continue statin Admission and Anticipated Discharge Date Admission Date: October 27, 2022 Subjective Patient started having episode of confusion last night, today in the morning, with the nurse/family member noted facial droop with right upper extremity weakness as well as confusion, stroke alert was called, CTA of head neck unremarkablE CT of brain, MRI of brain unremarkable, discussed with neurology, proceed with Keppra 750 mg IV twice daily, discussed in details with family Results & Data Results & Data ([facility]) Vital Signs (Past 12 Hours) Vital Signs Temp Pulse Pulse Resp BP Pulse Ox O2 Del Method 10/29/22 17:26 36.9 C 101 H 18 106/68 94 Room Air 10/29/22 10:40 36.5 C 89 18 130/80 96 Room Air 10/29/22 08:10 36.1 C L 98 H 129/80 94 Room Air PG Care Time/CCT Total # of Minutes Spent Total Time Spent with Patient: Total time spent is greater than 50% in coordination of care (as documented) at patient's floor/unit and/or counseling patient: Coding Level of Care Code 35413 Subseq Hosp Care Lvl 3 Diagnoses AMS (altered mental status) R40.4 Altered mental status type: transient alteration of awareness CKD (chronic kidney disease) N18.9 History of stroke Z86.73 Chronic respiratory failure with hypoxia J96.11 HTN (hypertension) I10 Hypertension type: essential hypertension Hypercholesteremia E78.00 (1) AMS (altered mental status) Altered mental status type: transient alteration of awareness Qualified Code(s): R40.4 - Transient alteration of awareness (2) HTN (hypertension) Hypertension type: essential hypertension Qualified Code(s): I10 - Essential (primary) hypertension
[2022-10-29] MEDS: RIVAROXABAN 20 MG TAB PO SCH (19:41)
[2022-10-30] MEDS: levETIRAcetam 750 MG in 0.9 % SODIUM CHLORIDE 100 ML IV SCH (05:06)
[2022-10-30] MEDS: POTASSIUM CITRATE 10 MEQ TAB PO SCH ×3 (08:52→20:22)
[2022-10-30] MEDS: FINASTERIDE 5 MG TAB PO SCH (08:53)
[2022-10-30] MEDS: TAMSULOSIN HCL 0.4 MG CAP PO SCH (08:53)
[2022-10-30] MEDS: PANTOprazole 40 MG TAB PO SCH (08:53)
[2022-10-30] MEDS: IRBESARTAN 150 MG TAB PO SCH (08:54)
[2022-10-30 09:29] LABS: Basophils # (auto) 0.09 K/uL (0-0.2); Basophils % (auto) 1.4 %; Eosinophils # (auto) 0.23 K/uL (0-0.50); Eosinophils % (auto) 3.6 %; Hematocrit (blood only) 42.6 % (40.1-51.0); Immature Granulocytes # (auto) 0.02 K/uL (0.00-0.02); Immature Granulocytes % (auto) 0.3 %; Lymphocytes % (auto) 31.2 %; Mean Corpuscular Hgb Conc 32.9 g/dL (32.0-36.0); Mean Corpuscular Volume 88.4 fL (80.0-100.0); Mean Platelet Volume 10.8 fL (9.4-12.4); Monocytes # (auto) 0.58 K/uL (0.24-0.82); Neutrophils % (auto) 54.5 %; Platelet Count 185 K/uL (130-400); RDW Coefficient of Variation 14.8 % (11.5-14.5); RDW Standard Deviation 47.6 fL (36.4-46.3); Red Blood Count 4.82 M/uL (4.63-6.08); White Blood Count 6.42 K/ul (4.8-10.8)
[2022-10-30 09:52] LABS: BUN Creatinine Ratio 14.6 (10-20); Calcium 9.2 mg/dl (8.5-10.1); Creatinine Clr Calc Pharmacy 26.1 ml/min; Est GFR (Non-African American) 29.3 ml/min; Potassium 4.1 mmol/L (3.5-5.1)
[2022-10-30] MEDS ORDERED: LEVETIRACETAM IV SCH (13:30)
[2022-10-30] MEDS ORDERED: SODIUM CHLORIDE 0.9% IV SCH (13:30)
--- NOTE | 2022-10-30 14:39 | Neurology Progress Note ---
Date of Service October 30, 2022 Assessment & Plan (1) AMS (altered mental status): Plan: Patient has had 2 episodes over the past 4 days, of sudden alteration in consciousness, described as either mutism or slurred speech and confusion. Yesterday was associated with right facial weakness and right arm weakness, I witnessed this spell when it was close to resolved, but he clearly had these deficits. Now he seems back to baseline again. CTA head and neck without significant stenosis. 2 MRIs have showed no evidence of ischemia, would question whether these represent partial onset seizures. He is now on Keppra, his kidney function is declining for the past couple of days, so we will adjust the dose downward. Patient does not drive. Already on anticoagulation. Given the progression of some of the symptoms over the past couple of months, there is no reason to suspect an acute FACULTY DEAN infection, and he seems nearly back to baseline now. If the problem should worsen at all though, the spells continue, CSF analysis should be undertaken, though this would be difficult given his anticoagulation, which would need to be held for couple of days. Admission and Anticipated Discharge Date Admission Date: October 27, 2022 Subjective Patient sleepy today but able to participate in therapy. He has no complaints. No return of symptoms since yesterday morning. He does not recall any details of what happened previously. says his memory has been gradually declining over recent months, but he had still been fairly independent. She thinks he is nearly back to that baseline now. Review of Systems Review of Systems: Unchanged Physical Exam Physical Exam: Lying in bed, just finished physical therapy. Awake, alert, attentive. He was slightly disoriented, thought it was November 2022. Knows he is in the hospital but cannot say which 1. Very hard of hearing. Attends to both sides. Answers questions generally appropriately otherwise. Normal ocular movements. No facial asymmetry. Moving all extremities well. Results & Data ([facility]) Vital Signs (Past 12 Hours) Vital Signs Temp Pulse Pulse Resp BP Pulse Ox O2 Del Method 10/30/22 11:47 36.6 C 68 16 116/74 97 Nasal Cannula 10/30/22 07:15 79 10/30/22 09:30 Room Air 10/30/22 07:31 36.7 C 75 16 120/80 98 Nasal Cannula 10/30/22 02:39 36.5 C 81 16 108/71 96 Nasal Cannula O2 Flow Rate 10/30/22 11:47 2 10/30/22 07:15 10/30/22 09:30 10/30/22 07:31 2 10/30/22 02:39 2 (1) AMS (altered mental status) Altered mental status type: transient alteration of awareness Qualified Code(s): R40.4 - Transient alteration of awareness
[2022-10-30] MEDS: RIVAROXABAN 20 MG TAB PO SCH (17:24)
--- NOTE | 2022-10-30 17:42 | Hospitalist Progress Note ---
Date of Service October 30, 2022 Assessment & Plan (1) AMS (altered mental status): Plan: -Sudden onset of confusion that resolved after few hours gradually -EEG is abnormal but did not show any epileptogenic foci Patient presented with an episode of staring and stiffness without shaking -MRI did not show evidence of a stroke On CT age-indeterminate lacunar infarct since April, would not expect acute infarct to appear in timeframe the patient presented -We will discuss with neurology if the patient is candidate for antiseizure medication 10/29 Another episode as mentioned above occurred on 10/29, night before, she developed confusion, in the morning patient developed right upper extremity weakness facial droop, stroke alert was called, work-up unremarkable as mentioned above, started on Keppra as mentioned above, EEG is abnormal however did not show any evidence of epileptogenic foci 10/30 Patient started on Keppra 750 mg IV twice daily last night, patient today was lethargic and sleepy and mildly confused, discussed with neurology, cut down the dose of Keppra to 275, switch to oral, Episode of hypotension, hold valsartan, hold hydrochlorothiazide systolic blood pressure is in 90s (2) CKD (chronic kidney disease): Plan: Stable (3) History of stroke: Plan: Continue antiplatelet, continue statin (4) Chronic respiratory failure with hypoxia: Plan: Chronic interstitial lung disease, oxygen dependence Suspected IPF, poor antifibrotic candidate on pulmonology follow-up Continue supplemental oxygen Continue Breo Aspiration precautions (5) HTN (hypertension): Plan: Fairly controlled with the current regimen (6) Hypercholesteremia: Plan: Continue statin Admission and Anticipated Discharge Date Admission Date: October 27, 2022 Subjective Episode of hypotension today, patient was confused and lethargic last night, possibly secondary to Keppra sedative side effect, discussed with neurology, cut on the dose of Keppra, switch to oral Physical Exam Physical Exam: Lying in bed, just finished physical therapy. Awake, alert, attentive. He was slightly disoriented, thought it was November 2022. Knows he is in the hospital but cannot say which 1. Very hard of hearing. Attends to both sides. Answers questions generally appropriately otherwise. Normal ocular movements. No facial asymmetry. Moving all extremities well. Results & Data Results & Data ([facility]) Vital Signs (Past 12 Hours) Vital Signs Temp Pulse Pulse Resp BP Pulse Ox O2 Del Method 10/30/22 15:15 36.3 C L 87 16 98/62 L 95 Room Air 10/30/22 15:20 102 H 10/30/22 11:47 36.6 C 68 16 116/74 97 Nasal Cannula 10/30/22 07:15 79 10/30/22 09:30 Room Air 10/30/22 07:31 36.7 C 75 16 120/80 98 Nasal Cannula O2 Flow Rate 10/30/22 15:15 10/30/22 15:20 10/30/22 11:47 2 10/30/22 07:15 10/30/22 09:30 10/30/22 07:31 2 PG Care Time/CCT Total # of Minutes Spent Total Time Spent with Patient: Total time spent is greater than 50% in coordination of care (as documented) at patient's floor/unit and/or counseling patient: Coding Level of Care Code 18698 Subseq Hosp Care Lvl 3 Diagnoses AMS (altered mental status) R40.4 Altered mental status type: transient alteration of awareness CKD (chronic kidney disease) N18.9 History of stroke Z86.73 Chronic respiratory failure with hypoxia J96.11 HTN (hypertension) I10 Hypertension type: essential hypertension Hypercholesteremia E78.00 (1) AMS (altered mental status) Altered mental status type: transient alteration of awareness Qualified Code(s): R40.4 - Transient alteration of awareness (2) HTN (hypertension) Hypertension type: essential hypertension Qualified Code(s): I10 - Essential (primary) hypertension
[2022-10-30] MEDS: levETIRAcetam ORAL SOLN 100MG/ML PO SCH (20:22)
[2022-10-31 07:41] LABS: Hematocrit (blood only) 38.4 % (40.1-51.0); Hemoglobin 12.8 g/dl (14.0-18.0); Mean Corpuscular Hemoglobin 29.3 pg (25.0-34.0); Mean Corpuscular Hgb Conc 33.3 g/dL (32.0-36.0); Mean Corpuscular Volume 87.9 fL (80.0-100.0); Mean Platelet Volume 10.5 fL (9.4-12.4); Platelet Count 173 K/uL (130-400); RDW Coefficient of Variation 14.6 % (11.5-14.5); RDW Standard Deviation 46.9 fL (36.4-46.3); Red Blood Count 4.37 M/uL (4.63-6.08); White Blood Count 5.96 K/ul (4.8-10.8)
[2022-10-31 08:01] LABS: BUN Creatinine Ratio 20.9 (10-20); Calcium 8.7 mg/dl (8.5-10.1); Creatinine Clr Calc Pharmacy 28.5 ml/min; Est GFR (African American) 37.9 ml/min; Est GFR (Non-African American) 32.7 ml/min; Potassium 3.5 mmol/L (3.5-5.1)
[2022-10-31] MEDS: POTASSIUM CITRATE 10 MEQ TAB PO SCH ×3 (08:02→20:00)
[2022-10-31] MEDS: levETIRAcetam ORAL SOLN 100MG/ML PO SCH ×2 (08:03→20:00)
[2022-10-31] MEDS: FINASTERIDE 5 MG TAB PO SCH (08:03)
[2022-10-31] MEDS: TAMSULOSIN HCL 0.4 MG CAP PO SCH (08:03)
[2022-10-31] MEDS: PANTOprazole 40 MG TAB PO SCH (08:03)
[2022-10-31] MEDS ORDERED: levETIRAcetam 500 MG TAB PO SCH (09:00)
--- NOTE | 2022-10-31 18:04 | Hospitalist Progress Note ---
Date of Service October 31, 2022 Assessment & Plan (1) AMS (altered mental status): Plan: -Sudden onset of confusion that resolved after few hours gradually -EEG is abnormal but did not show any epileptogenic foci Patient presented with an episode of staring and stiffness without shaking -MRI did not show evidence of a stroke On CT age-indeterminate lacunar infarct since April, would not expect acute infarct to appear in timeframe the patient presented -We will discuss with neurology if the patient is candidate for antiseizure medication 10/29 Another episode as mentioned above occurred on 10/29, night before, she developed confusion, in the morning patient developed right upper extremity weakness facial droop, stroke alert was called, work-up unremarkable as mentioned above, started on Keppra as mentioned above, EEG is abnormal however did not show any evidence of epileptogenic foci 10/30 Patient started on Keppra 750 mg IV twice daily last night, patient today was lethargic and sleepy and mildly confused, discussed with neurology, cut down the dose of Keppra to 275, switch to oral, Episode of hypotension, hold valsartan, hold hydrochlorothiazide systolic blood pressure is in 90s 10/31 Blood pressure is trending up, hold BP meds, mental status returned to baseline, pending placement (2) CKD (chronic kidney disease): Plan: Stable (3) History of stroke: Plan: Continue antiplatelet, continue statin (4) Chronic respiratory failure with hypoxia: Plan: Chronic interstitial lung disease, oxygen dependence Suspected IPF, poor antifibrotic candidate on pulmonology follow-up Continue supplemental oxygen Continue Breo Aspiration precautions (5) HTN (hypertension): Plan: Hold BP meds due to hypotension (6) Hypercholesteremia: Plan: Continue statin (7) Pulmonary emboli: Plan: Switch to apixaban given lower chance of bleeding Admission and Anticipated Discharge Date Admission Date: October 27, 2022 Subjective No episode today mental status back to normal, OT recommend rehab, pending placement, the family in agreement Results & Data Results & Data ([facility]) Vital Signs (Past 12 Hours) Vital Signs Temp Pulse Pulse Resp BP Pulse Ox O2 Del Method 10/31/22 14:54 36.6 C 74 16 97/62 L 97 Room Air 10/31/22 14:53 84 10/31/22 11:20 36.9 C 69 18 106/67 95 Room Air 10/31/22 11:03 Room Air 10/31/22 07:52 36.4 C L 73 20 112/66 92 Room Air 10/31/22 07:00 79 PG Care Time/CCT Total # of Minutes Spent Total Time Spent with Patient: Total time spent is greater than 50% in coordination of care (as documented) at patient's floor/unit and/or counseling patient: Coding Level of Care Code 78591 Subseq Hosp Care Lvl 2 Diagnoses AMS (altered mental status) R40.4 Altered mental status type: transient alteration of awareness CKD (chronic kidney disease) N18.9 History of stroke Z86.73 Chronic respiratory failure with hypoxia J96.11 HTN (hypertension) I10 Hypertension type: essential hypertension Hypercholesteremia E78.00 Pulmonary emboli I26.99 (1) AMS (altered mental status) Altered mental status type: transient alteration of awareness Qualified Code(s): R40.4 - Transient alteration of awareness (2) HTN (hypertension) Hypertension type: essential hypertension Qualified Code(s): I10 - Essential (primary) hypertension
[2022-10-31] MEDS: APIXABAN 5 MG TABLET PO SCH (20:00)
[2022-11-01] MEDS: POTASSIUM CITRATE 10 MEQ TAB PO SCH ×2 (07:42→14:19)
[2022-11-01] MEDS: PANTOprazole 40 MG TAB PO SCH (07:42)
[2022-11-01] MEDS: APIXABAN 5 MG TABLET PO SCH (07:42)
[2022-11-01] MEDS: levETIRAcetam ORAL SOLN 100MG/ML PO SCH (07:42)
[2022-11-01] MEDS: TAMSULOSIN HCL 0.4 MG CAP PO SCH (07:43)
[2022-11-01] MEDS: FINASTERIDE 5 MG TAB PO SCH (07:43)
--- NOTE | 2022-11-01 08:53 | XRay Report ---
XR chest 1V portable HISTORY: ?aspiration COMPARISON: Chest 10/27/2022. FINDINGS: There are low lung volumes. No pneumothorax. No pleural effusions. The heart remains mildly enlarged. Right greater than left interstitial thickening with patchy peripheral airspace opacities within the right mid to lower lung zone. This is similar to the prior study. No new focal lung consol idations. Prior cholecystectomy. IMPRESSION: Chronic interstitial changes and low lung volumes again noted. No new focal lung consolidations to villatoro ggest a pneumonia. ACT 112: Negative or not required by law. Electronically signed by: Ede Ha M.D. 11/01/2022 8:52 AM
--- NOTE | 2022-11-01 19:18 | Discharge Summary ---
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 He was noted to be very high risk of bleeding with a past intracerebral bleed 10 years ago. Was referred for review of therapy and bleeding risk to hematology oncology at that time, given multiple prior CVAs but with history of intracerebral hemorrhage and high bleeding risk was recommended to defer antiplatelet therapy and to continue Xarelto therapy. Patient episode of COnfusion, didn't recognize , thought he needed to void bowels in room. When he got him to a chair did not lose conciousness, but had an episode of rigidity and wouldn't listen, EMS had to help free his hands him walk out of house. Pt was verbalizing at the time, and while was able to be facilitated out of the house was not following commands. No facial droop. No focal weakness. No reported tremors/tonic/clonic activity. N no similar episodes to this, no prior seizures although ablation with multiple strokes and very high bleeding risk after an injury cranial hemorrhage many years ago and with recurrent CVAs that have deferred antiplatelet treatment in favor of anticoagulation given concurrent history of PE.Patient seen at the bedside with his and family present. He is pleasant and redirectable, but he is with notable confusion requiring redirection. Is oriented to name and place, is not oriented to year. Patient does not remember the episode that caused him to present to the hospital, but reports that he feels normal at time of assessment. Family confirms story as noted above. No prior seizure activity. Denies arm/leg focal weakness, facial droop, or loss of consciousness. Principal Diagnosis Episodic altered mental status with paralysis possibly secondary to complex partial seizure Discharge Data Allergies Allergy/AdvReac Type Severity Reaction Status Date / Time fluticasone [From Flonase] Allergy Unknown Unknown Verified 10/27/22 15:26 Consultations 10/27/22 14:55 ED Decision to Admit Stat 10/28/22 09:00 Consult Neurology Routine Ordered Studies 10/27/22 13:21 CT head/brain wo con Stat 10/27/22 13:54 CT angio head w con Stat CT angio neck with con Stat 10/27/22 18:21 MRI Brain [MR brain wo con] Routine 10/29/22 09:57 CT angio chest w con Routine 10/29/22 10:05 CTA head w con [CT angio head w con] Stat 10/29/22 10:18 CT head/brain wo con Stat 10/29/22 10:19 CTA neck with con [CT angio neck with con] Stat 10/29/22 10:46 MRI Brain [MR brain wo con] Urgent Hospital Course (1) AMS (altered mental status): -Sudden onset of confusion that resolved after few hours gradually -EEG is abnormal but did not show any epileptogenic foci Patient presented with an episode of staring and stiffness without shaking -MRI did not show evidence of a stroke On CT age-indeterminate lacunar infarct since April, would not expect acute infarct to appear in timeframe the patient presented -We will discuss with neurology if the patient is candidate for antiseizure medication 10/29 Another episode as mentioned above occurred on 10/29, night before, she developed confusion, in the morning patient developed right upper extremity weakness facial droop, stroke alert was called, work-up unremarkable as mentioned above, started on Keppra as mentioned above, EEG is abnormal however did not show any evidence of epileptogenic foci 10/30 Patient started on Keppra 750 mg IV twice daily last night, patient today was lethargic and sleepy and mildly confused, discussed with neurology, cut down the dose of Keppra to 275, switch to oral, Episode of hypotension, hold valsartan, hold hydrochlorothiazide systolic blood pressure is in 90s -Dose of Keppra was cut down to 275 mg p.o. twice daily 10/31 Blood pressure is trending up, hold BP meds, mental status returned to baseline, -No acute issues today, if patient is stable tomorrow can be discharged 11/01 No active issue today, blood pressure is on the low side, discontinue BP meds upon discharge, patient discharged on Keppra 375 mg p.o. twice daily, patient advised to follow-up with PCP to get a referral to follow-up with a neurologist, its not clear exactly what caused his episodic confusion with paralysis, possibly partial complex seizure with Darryn's paralysis however, as mentioned above no evidence of seizure on EEG, however patient has not multiple resection procedure include intracranial bleeding history of a stroke Patient has a history of PE 2 to 3 years ago and so he is taking Xarelto, I will discontinue Xarelto upon discharge, usually you need to take anticoagulation only for 4 to 6 months after initial event unless you have some risk factors, I will ask them to discuss it with primary care doctor if really he needs to continue Xarelto especially with a history of intracranial bleeding, more if there is indication of for continuous treatment with anticoagulation Xarelto can be substituted with apixaban with better bleeding profile (2) Pulmonary emboli: Plan as mentioned above, patient diagnosed with PE to 3 years ago I am not sure if there is indication to continue Xarelto, I asked the patient to follow-up with PCP to see if really there is indication to continue Xarelto. For now, given I did not identify any risk factor to continue Xarelto indefinitely, in the setting of history of intracranial bleeding and possible seizure activity I discontinued Xarelto. I asked the patient to follow-up with PCP in case patient is a candidate for anticoagulation apixaban has a better bleeding profile (3) CKD (chronic kidney disease): Stable (4) History of stroke: Continue antiplatelet, continue statin (5) Chronic respiratory failure with hypoxia: Chronic interstitial lung disease Suspected IPF, poor antifibrotic candidate on pulmonology follow-up Continue supplemental oxygen Continue Breo Aspiration precautions (6) HTN (hypertension): Hold BP meds due to hypotension (7) Hypercholesteremia: Continue statin Total Time Total Time Spent Total Time Spent (In Minutes): 45 minutes Discharge Plan Discharge Items Patient Disposition: Home - Home Health Services Reason For Visit: AMS, CVA? VS SEIZURE Discharge Diagnosis: Altered Mental status , possible seizure activity with Darryn Paralysis Activity: Resume your previous activity Lifting: Gradually increase as tolerated Bathing: No limitations Sexual Activity: When tolerated Exercise/Sports: Gradually increase as tolerated Driving/Machine Use: no driving Weightbearing: Full weightbearing Non-emergency contact: Primary Care Provider and Neurologist Call non-emergency contact if: you have any medication questions and your symptoms worsen Follow-up/Referrals: Arnulfo Hernandez MD [Physician] - (next appt. scheduled for 03/10/2023) Selvin Jaramillo MD [Physician] - (next appt. 01/14/2023) Gideon Trejo [Primary Care Provider] - (please call to schedule follow up within 1 week of discharge) Diet: Heart Healthy Addtl Attending Provider Instructions: Please contact your primary care doctor to refer you to a Neurologist within one month. If your symptoms reoccur please call 911 You have been taking Xarelto for Pulmonary embolism that you have more than 2 years ago , usually you need to take blood thinner ( Xarelto ) for 4-6 month after you having the Pulmonary Embolism unless you have a risk factors that make you qualify for intermediate project manager/indefinite treatment. This is especially true about you given you had bleeding into your brain .Please discuss with your primary care doctor or whoever had prescribe you the Xarelto to see if you really need to continue Xarelto. If your doctor recommend you to continue Xarelto , you can substitute Xarelto with Apixaban which has a better bleeding profile. your blood pressure has been running low most of the time during this admission despite your blood pressure medications has been discontinued. your blood pressure medications has been stopped. Please check your blood pressure on on a daily lópez if the top number (SYSTOLIC) consistently is more than 150 or the bottom number ( diastolic) is more than 100 contact your primary care doctor . Pending Studies at Discharge: No Stand-Alone Forms: [facility] Communication, Smoking Cessation Medications and DC Order Prescriptions: New levetiracetam [Keppra] 100 mg/mL Solution 375 mg PO BID Qty: 473 1RF levetiracetam [Keppra] 100 mg/mL solution 375 mg PO BID 60 Days Qty: 450 0RF Continued ipratropium-albuterol 0.5 mg-3 mg(2.5 mg base)/3 mL solution for nebulization 3 ml INHALATION BID PRN (Reason: Shortness Of Breath) Qty: 540 1RF potassium citrate 10 mEq (1,080 mg) tablet extended release 10 meq PO TID Qty: 270 3RF finasteride [Proscar] 5 mg tablet 5 mg PO DAILY Qty: 90 3RF tamsulosin [Flomax] 0.4 mg capsule 0.4 mg PO DAILY Qty: 90 3RF fluticasone furoate-vilanterol [Breo Ellipta] 100-25 mcg/dose blister with device 1 inh inhalation DAILY Qty: 60 2RF Balance Of Nature Vitamins 4 cap PO QDL cholecalciferol (vitamin D3) [Vitamin D3] 50 mcg (2,000 unit) capsule 100 mcg PO QAM omeprazole 20 mg capsule,delayed release(DR/EC) 20 mg PO QAM Discontinued Xarelto 20 mg tablet 20 mg PO DAILY@1900 hydrochlorothiazide 12.5 mg capsule 12.5 mg PO HS Qty: 90 3RF Rx Instructions: TAKE 1 CAPSULE EVERY DAY irbesartan-hydrochlorothiazide 150-12.5 mg tablet 1 tab PO DAILY Discharge Orders: Discharge Order (Routine); Ordered 11/01/22 Ordered By: Dileep Ramos Admission Data Admit Date/Time: 10/27/22 16:09 Attending Provider: Dileep Ramos Admit Provider: Miles Beltre Primary Care Provider: Gideon Trejo Other Providers: Miles Beltre ; Liang Han Other Interventions: Discharge Summary Assessment (RN) Last Done: 11/01/22 13:29 Coding Level of Care Code D/C DAY MANAGEMENT >30 MINS Diagnoses AMS (altered mental status) R40.4 Altered mental status type: transient alteration of awareness Pulmonary emboli I26.99 CKD (chronic kidney disease) N18.9 History of stroke Z86.73 Chronic respiratory failure with hypoxia J96.11 HTN (hypertension) I10 Hypertension type: essential hypertension Hypercholesteremia E78.00
== END 2022-11-01 14:30 | disposition home health service (06) | DRG 101 ==
LOC: ED 13:19 → EDINP 16:09 → SUATTDRO 16:09 → 2N 18:23 → 1E 10-29 11:25 → 2N 10-29 11:48